=== PATIENT | female | born 1955 | race Caucasian/White ===

== ENCOUNTER 2023-03-28 21:01 | Outpatient (REF) | payer OTHER, SELFPAY ==
[2023-04-01 15:10] LABS: Age Gdln ACOG Testing Note (.); HPV Aptima Negative (Negative); IGP, Aptima HPV, rfx 16/18,45 Note (.)
== END 2023-03-28 21:02 | disposition home or self-care (01) ==
LOC: LAB 21:01
PROVIDERS: PCP Internal Medicine; Visit Provider Obstetrics & Gynecology
DX: Z01.419 Encounter for gynecological examination (general) (routine) without abnormal findings (principal)
CPT/HCPCS: 87624; G0145

== ENCOUNTER 2023-06-22 07:22 | Outpatient (OUT) | payer OTHER, SELFPAY ==
--- OUTSIDE RECORDS SUMMARY | 2023-06-22 07:24 | XMS_ITS | CCD ---
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 Name Role Phone Meli Martin Unavailable SILVESTRE MACHUCA Unavailable Unavailable MELI MARTIN Unavailable Unavailable MELI MARTIN Unavailable Unavailable BALL, KEN Nino Unavailable Unavailable BALL, KEN Nino Unavailable Unavailable BALL, KEN Nino Unavailable Unavailable MIRIAM JARAMILLO Unavailable Unavailable Ken London Unavailable DR KEN LONDON Primary Care Unavailable REQUEST, DR WEST LISTED Attending Unavaila ble REQUEST, DR WEST LISTED Admitting Unavaila ble REQUEST, DR WEST LISTED Consulting Unavaila ble BALL, DR CHRISTIANSEN Primary Care Unavailable BALL, DR CHRISTIANSEN Consulting Unavailable BALL, DR CHRISTIANSEN Attending Unavailable BALL, DR CHRISTIANSEN Admitting Unavailable WEST, DR GOKUL Kemp Consulting Unavailable KARASIK, SIDDHARTHA Attending Unavailable KARASIKSIDDHARTHA Admitting Unavailable KARASIKSIDDHARTHA Consulting Unavailable SURYA, DR CHRISTIANSEN Primary Care Unavailable Indiana Holm Unavailable Meli Martin Unavailable CLAUDIA NARAYANAN Attending Unavailable CLAUDIA NARAYANAN Attending Unavailable KEN LONDON Primary Care Physician Jillian Thapa Unavailable PURNIMA AGUIRRE Attending Unavailable Allergies Allergy Classification Reported Allergen(s) Allergy Type Date of Onset Reaction(s) Facility (1 source) HYDROmorphone Drug Allergy 4 [facility] (1 source) Ketorolac Drug Allergy [facility] (1 source) Levamisole Drug Allergy 3 [facility] (1 source) No Known Medication Allergies; Translations: [No Known Medication Allergies] Propensity to adverse reactions (disorder) [facility] Repository Medications Current Medications Medication Drug Class(es) Dates Sig (Normalized) Sig (Original) ALPRAZolam 0.25 mg oral tablet (12 sources) Benzodiazepine Start: 04-28-2022 take 1 tablet by mouth every eight hours as needed for anxiety ALPRAZolam 0.25 MG 1 tablet Orally every 8 hours, PRN anxiety Apr, Active Start: 11-20-2018 take 1 tablet by socrates th once daily alprazolam 0.25 mg Tab 0.25 mg = 1 tab(s), Oral, Daily Start Date: 11/20/18 Status: Ordered amoxicillin 875 mg oral tablet (5 sources) Penicillin-class Antibacterial Start: 12-02-2022 take 1 tablet by mouth every twelve hours Amoxicillin 875 MG 1 tablet Orally Twice a day for 10 days Nov, Active Amoxicillin Acti ve amoxicillin 875 mg / clavulanate 125 mg oral tablet (11 sources) Penicillin-class Antibacterial Start: 05-31-2022 take 1 tablet by mouth every twelve hours Ascorbic Acid (1 source) Vitamin C Start: 07-13-2019 Vitamin C Daily, Refills(s) 0 Start Date: 07/13/19 Status: Ordered Calcium (9 sources) Phosphate Binder, Calcium Calcium 500 +D Active estradiol 0.1 mg/ml vaginal cream (18 sources) Estrogen Start: 04-21-2022 Estrace 0.1 mg/g Cream See Instructions, 42.5 gm, Refill(s) 3, 1 gram Vaginal 3x/week DISPENSE 3 MONTH SUPPLY, [id number], 152, cm, 08/12/21 10:53:00 EDT, Height/Length Dosing, 59, kg, 08/12/21 10:53:00 EDT, Weight Dosing Start Date: 04/21/22 Status: Ordered Estradiol 10 % a s directed Active Estradiol Acetat e Not-Taking Estradiol Acetat e Active fluconazole 150 mg oral tablet (17 sources) Azole Antifungal Start: 05-31-2022 take 1 tablet by mouth once Fluconazole 150 MG 1 tablet Orally once for 1 days Nov, Active fluticasone propionate 0.05 mg/actuat metered dose nasal spray (11 sources) Corticosteroid Start: 05-31-2022 take 2 spray(s) nasal route once daily hydrocortisone 10 mg/ml / neomycin 3.5 mg/ml / polymyxin b 62176 unt/ml otic suspension (4 sources) Aminoglycoside Antibacterial, Polymyxin-class Antibacterial, Corticosteroid Start: 12-10-2022 Neomycin-Polymyxi n-HC 3.5-79150-1 4 drops into affected ear Otic Three times a day for 7 days Nov, Active Loratadine-D 12HR (4 sources) Loratadine-D 12H R Active [facility]'s [email or web address] Probiotic (1 source) Start: 07-13-2019 [facility]'s Bounty Probiotic Oral, Daily, Refill(s) 0 Start Date: 07/13/19 Status: Ordered One A Day Women 50 Plus - (9 sources) One A Day Women 50 Plus - as directed Orally Active predniSONE 20 mg oral tablet (15 sources) Start: 12-10-2022 take 1 tablet by mouth once daily predniSONE 20 MG 1 tablet Orally Once a day w/ food for 7 days Nov, Active Start: 05-31-2022 take 1 tablet by mouth every t welve hours sertraline 100 mg oral tablet (12 sources) Serotonin Reuptake Inhibitor Start: 11-20-2018 take 1 tablet by mouth once daily sertraline 100 mg Tab 100 mg = 1 tab(s), Oral, Daily Start Date: 11/20/18 Status: Ordered Sertraline HCl 1 00 MG TAKE 1 TABLET DAILY for 90 Active solifenacin succinate 5 mg oral tablet (20 sources) Cholinergic Muscarinic Antagonist Start: 08-12-2021 take 1 tablet by mouth once daily Vesicare 5 mg Tab 5 mg = 1 tab(s), Oral, Daily, # 90 tab(s), Refills(s) 3, Pharmacy: [facility], 152, cm, 08/12/21 10:53:00 EDT, Height/Length Dosing, 59, kg, 08/12/21 10:53:00 EDT, Weight Dosing Start Date: 08/12/21 Status: Ordered Solifenacin Succ inate Not-Taking Solifenacin Succ inate Active sulfamethoxazole 800 mg / trimethoprim 160 mg oral tablet (3 sources) Dihydrofolate Reductase Inhibitor Antibacterial, Sulfonamide Antimicrobial Start: 12-13-2022 take 1 tablet by mouth every twelve hours Sulfamethoxazole-Trimethoprim 800-160 MG 1 tablet Orally Twice a day for 5 days Nov, Active terconazole 4 mg/ml vaginal cream (9 sources) Azole Antifungal Problems Active Problems Problem Classification Problem Date Documented Date Episodic/Chronic Abdominal pain (1 source) Suprapubic pain 10-19-2018 Episodic Anxiety disorders (12 sources) Generalized anxiety disorder; Translations: [Generalized anxiety disorder] Chronic Delirium, dementia, and amnestic and other cognitive disorders (12 sources) Postconcussion syndrome; Translations: [Postconcussional syndrome] Chronic Diabetes mellitus without complication (12 sources) Impaired fasting glycemia; Translations: [Impaired fasting glucose] Episodic Disorders of lipid metabolism (12 sources) Pure hypercholesterolemia; Translations: [Pure hypercholesterolemia, unspecified] Chronic Endometriosis (1 source) Endometriosis (clinical) 11-20-2018 Chronic Genitourinary symptoms and ill-defined conditions (1 source) Female stress incontinence 07-13-2019 Chronic Genitourinary symptoms and ill-defined conditions (15 sources) Dysuria; Translations: [Dysuria] Episodic Headache; including migraine (9 sources) Chronic post-traumatic headache; Translations: [Chronic post-traumatic headache, not intractable] Onset: 11-15-2017 Chronic Inflammatory diseases of female pelvic organs (12 sources) Vaginitis and vulvovaginitis; Translations: [Acute vaginitis] Episodic Intracranial injury (13 sources) Concussion without loss of consciousness, initial encounter; Translations: [Concussion with no loss of consciousness] Onset: 02-02-2017 Episodic Menopausal disorders (12 sources) Atrophy of vagina; 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 Mood disorders (1 source) Depressive disorder 11-20-2018 Chronic Osteoarthritis (4 sources) Localized, primary osteoarthritis of the ankle and/or foot; Translations: [Primary localized osteoarthrosis, lower leg] Onset: 08-28-2013 Chronic Other aftercare (2 sources) History and physical examination, follow-up; Translations: [Encounter for follow-up examination after completed treatment for conditions other than malignant neoplasm] Episodic Other congenital anomalies (2 sources) Congenital spondylolysis of lumbosacral region; Translations: [Congenital spondylolysis, lumbosacral region] Onset: 08-25-2015 Chronic Other connective tissue disease (2 sources) Plantar fascial fibromatosis; Translations: [Plantar fascial fibromatosis] Episodic Other diseases of bladder and urethra (1 source) Detrusor overactivity; Translations: [Overactive bladder] Onset: 08-12-2022 Chronic Other diseases of bladder and urethra (1 source) Overactive bladder 08-12-2021 Chronic Other diseases of bladder and urethra (2 sources) Urethral stricture; Translations: [Urethral stricture, unspecified] Episodic Other ear and sense organ disorders (1 source) Diffuse otitis externa, left ear Episodic Other female genital disorders (10 sources) Pruritus of vagina; Translations: [Other specified noninflammatory disorders of vagina] Episodic Other female genital disorders (2 sources) Polyp of corpus uteri; Translations: [Polyp of corpus uteri] Episodic Other female genital disorders (2 sources) Noninflammatory disorder of the vagina; Translations: [Other specified noninflammatory disorders of vagina] Episodic Other injuries and conditions due to external causes (1 source) Unspecified injury of head, initial encounter; Translations: [Unspecified injury of head, initial encounter] Onset: 02-02-2017 Other nutritional; endocrine; and metabolic disorders (2 sources) Simple obesity ; Translations: [Other obesity due to excess calories] Onset: 05-04-2017 Chronic Other nutritional; endocrine; and metabolic disorders (4 sources) Body mass index 30+ - obesity; Translations: [Body mass index 31.0-31.9, adult] Onset: 05-04-2017 Chronic Other upper respiratory infections (7 sources) Acute sinusitis, unspecified; Translations: [Acute maxillary sinusitis] Onset: 04-04-2014 Episodic Otitis media and related conditions (3 sources) Mastoiditis; Translations: [Unspecified mastoiditis, right ear] Onset: 05-17-2016 Episodic Residual codes; unclassified (1 source) Family history of malignant neoplasm of breast; Translations: [FAMILY HX MALIG NEOPLASM OF BREAST] Onset: 06-25-2022 Episodic Residual codes; unclassified (1 source) Family history of malignant neoplasm of trachea, bronchus and lung; Translations: [FAM HX MALIG NEOPLSM TRACH BRON LNG] Onset: 06-25-2022 Episodic Spondylosis; intervertebral disc disorders; other back problems (16 sources) Lumbar spondylosis; Translations: [Spondylosis without myelopathy or radiculopathy, lumbar region] Onset: 12-19-2012 Chronic Sprains and strains (14 sources) Sprain of left wrist; Translations: [Unspecified sprain of left wrist, initial encounter] Onset: 05-04-2017 Episodic Unclassified (20 sources) Encounter for other screening for malignant neoplasm of breast; Translations: [Encounter for screening mammogram for malignant neoplasm of breast] Onset: 12-21-2016 Episodic Unclassified (1 source) Finding of sensation of bladder 10-19-2018 Unclassified (2 sources) Acute candidiasis of vulva and vagina; Translations: [Acute candidiasis of vulva and vagina] Urinary tract infections (2 sources) Chronic cystitis; Translations: [Other chronic cystitis without hematuria] Onset: 08-12-2022 Chronic Urinary tract infections (12 sources) Acute cystitis; Translations: [Acute cystitis without hematuria] Onset: 09-28-2022 Episodic Past or Other Problems Problem Classification Problem Date Documented Date Episodic/Chronic Bacterial infection; unspecified site (2 sources) Bacterial infectious disease; Translations: [Bacterial infection, unspecified, in conditions classified elsewhere and of unspecified site] Onset: 06-21-2017 Episodic Headache; including migraine (4 sources) Cough headache syndrome; Translations: [Primary cough headache] Onset: 10-28-2015 Episodic Mycoses (2 sources) Candidal vulvovaginitis; Translations: [Candidiasis of vulva and vagina] Onset: 06-21-2017 Episodic Other diseases of bladder and urethra (2 sources) Low compliance bladder; Translations: [Other neuromuscular dysfunction of bladder] Resolved: 08-17-2021 Chronic Other female genital disorders (4 sources) Other specified noninflammatory disorders of vagina; Translations: [OTH SPEC NONINFLAMMATORY D/O VAGINA] Onset: 08-04-2021 Episodic Other non-traumatic joint disorders (2 sources) Pain in right hip joint; Translations: [Pain in right hip] Onset: 01-18-2013 Episodic Other non-traumatic joint disorders (2 sources) Arthralgia of the ankle and/or foot; Translations: [Pain in unspecified ankle and joints of unspecified foot] Onset: 08-28-2013 Episodic Other nutritional; endocrine; and metabolic disorders (2 sources) Body mass index 25-29 - overweight; Translations: [Body mass index 28.0-28.9, adult] Onset: 05-04-2017 Episodic Other nutritional; endocrine; and metabolic disorders (2 sources) Overweight; Translations: [Overweight] Resolved: 08-03-2021 Episodic Other skin disorders (6 sources) Asteatosis cutis; Translations: [Senile hyperkeratosis] Onset: 03-22-2017 Episodic Skin and subcutaneous tissue infections (2 sources) Cellulitis and abscess of trunk; Translations: [Cellulitis and abscess of trunk] Onset: 05-09-2018 Episodic Spondylosis; intervertebral disc disorders; other back problems (2 sources) Backache; Translations: [Dorsalgia, unspecified] Onset: 10-18-2013 Episodic Unclassified (11 sources) Patient encounter status; Translations: [Encounter for health counseling related to travel] Unclassified (10 sources) Monilial vaginitis; Translations: [Monilial vaginitis] Unclassified (1 source) Cough R05.9 Unclassified (1 source) Monilial vaginitis B37.31 Results Test Name Value Interpretation Reference Range Facility Urinalysis - DIPSTICKon 11-24 Appearance (U) cloudy [employer] Other Bilirubin Ql (U) large [employer] Other Color (U) red [facility] Other Glucose Ql (U) Negative [employer] Other Hemoglobin Ql (U) large [employer] Other Ketones Ql (U) trace [employer] Other Leukocyte esterase Test strip Ql (U) moderate [facility] Other Nitrite Ql (U) Positive [employer] Other pH (U) 5.0 [pH] [facility] Other Protein Ql (U) ++ [employer] Other Specific gravity (U) [Rel density] 1.020 [facility] Other Urobilinogen (U) [Mass/Vol] 0.2 mg/dL [facility] Other Urinalysis - DIPSTICK [facility] Other Patient Educationon 09-29-19 Patient Education Obstetrics and Gynecology Overactive Bladder, Adult Overactive bladder is a condition in which a person has a sudden and frequent need to urinate. A person might also leak urine if he or she cannot get to the bathroom fast enough (urinary incontinence). Sometimes, symptoms can interfere with work or social activities. What are the causes? Overactive bladder is associated with poor nerve signals between your bladder and your brain. Your bladder may get the signal to empty before it is full. You may also have very sensitive muscles that make your bladder squeeze too soon. This condition may also be caused by other factors, such as: ? Medical conditions: ? Urinary tract infection. ? Infection of nearby tissues. ? Prostate enlargement. ? Bladder stones, inflammation, or tumors. ? Diabetes. ? Muscle or nerve weakness, especially from these conditions: ? A spinal cord injury. ? Stroke. ? Multiple sclerosis. ? Parkinson's disease. ? Other causes: ? Surgery on the uterus or urethra. ? Drinking too much caffeine or alcohol. ? Certain medicines, especially those that eliminate extra fluid in the body (diuretics). ? Constipation. What increases the risk? You may be at greater risk for overactive bladder if you: ? Are an older adult. ? Smoke. ? Are going through menopause. ? Have prostate problems. ? Have a neurological disease, such as stroke, dementia, Parkinson's disease, or multiple sclerosis (MS). ? Eat or drink alcohol, spicy food, caffeine, and other things that irritate the bladder. ? Are overweight or obese. What are the signs or symptoms? Symptoms of this condition include a sudden, strong urge to urinate. Other symptoms include: ? Leaking urine. ? Urinating 8 or more times a day. ? Waking up to urinate 2 or more times overnight. How is this diagnosed? This condition may be diagnosed based on: ? Your symptoms and medical history. ? A physical exam. ? Blood or urine tests to check for possible causes, such as infection. You may also need to see a health care provider who specializes in urinary tract problems. This is called a urologist. How is this treated? Treatment for overactive bladder depends on the cause of your condition and whether it is mild or severe. Treatment may include: ? Bladder training, such as: ? Learning to control the urge to urinate by following a schedule to urinate at regular intervals. ? Doing Kegel exercises to strengthen the pelvic floor muscles that support your bladder. ? Special devices, such as: ? Biofeedback. This uses sensors to help you become aware of your body's signals. ? Electrical stimulation. This uses electrodes placed inside the body (implanted) or outside the body. These electrodes send gentle pulses of electricity to strengthen the nerves or muscles that control the bladder. ? Women may use a plastic device, called a pessary, that fits into the vagina and supports the bladder. ? Medicines, such as: ? Antibiotics to treat bladder infection. ? Antispasmodics to stop the bladder from releasing urine at the wrong time. ? Tricyclic antidepressants to relax bladder muscles. ? Injections of botulinum toxin type A directly into the bladder tissue to relax bladder muscles. ? Surgery, such as: ? A device may be implanted to help manage the nerve signals that control urination. ? An electrode may be implanted to stimulate electrical signals in the bladder. ? A procedure may be done to change the shape of the bladder. This is done only in very severe cases. Follow these instructions at home: Eating and drinking ? Make diet or lifestyle changes recommended by your health care provider. These may include: ? Drinking fluids throughout the day and not only with meals. ? Cutting down on caffeine or alcohol. ? Eating a healthy and balanced diet to prevent constipation. This may include: ? Choosing foods that are high in fiber, such as beans, whole grains, and fresh fruits and vegetables. ? Limiting foods that are high in fat and processed sugars, such as fried and sweet foods. Lifestyle ? Lose weight if needed. ? Do not use any products that contain nicotine or tobacco. These include cigarettes, chewing tobacco, and vaping devices, such as e-cigarettes. If you need help quitting, ask your health care provider. General instructions ? Take [id number] and prescription medicines only as told by your health care provider. ? If you were prescribed an antibiotic medicine, take it as told by your health care provider. Do not stop taking the antibiotic even if you start to feel better. ? Use any implants or pessary as told by your health care provider. ? If needed, wear pads to absorb urine leakage. ? Keep a log to track how much and when you drink, and when you need to urinate. This will help your health care provider monitor yo (more content not included)... Normal [facility] Urology Office/Clinic Noteon 09-28-2022 Urology Office/Clinic Note Chief Complaint Pt is here for 1 year f/u HPI Staff PRW pt 1yr to chronic cystitis, overactive bladder, urethral stricture and feeling of incomplete bladder emptying. No infections since last visit. *VESIcare 5mg QD therapy and Estrace cream. Dysuria: denies Incomplete bladder emptying: denies Hematuria: denies Frequency: denies Urgency: denies Nocturia: 1x a night Stream: steady stream Leaking: denies Post void dripping: denies Wearing pads/ Depends: denies Urge incontinence: denies Stress incontinence: denies Incontinence without Sensory Awareness: denies Abdominal pain: denies Flank pain: denies Sexual complaints: _ Review of Systems PHQ Score Initial Depression Screen Score: 0 no fever, chills, malaise, myalgia. no rash/lesions. no chest pain, palpitations, or SOB. no abdominal pain, nausea, vomiting. no unilateral calf swelling, redness, pain Physical Exam Vitals & Measurements HR: 70(Peripheral) BP: 125/74 HT: 60 in HT: 152 cm WT: 59 kg WT: 129.8 lb BMI: 25.54 General: nontoxic, NAD Mouth: moist mucosa Lungs: normal respiratory effort Cardio: regular rate, good distal perfusion Abdomen: nondistended, no suprapubic distention or tenderness, no CVA tenderness Neurologic: Grossly normal Skin: No rashes or suspicious lesions Assessment/Plan UA completed in office today shows no microhematuria or signs of infection. 1. Chronic cystitis without hematuria (N30.20: Other chronic cystitis without hematuria) no infections since last visit. very pleased w improvement. continues to use the estrogen cream 3x per week. discussed reducing dose/frequency but pt is still sexually active and says this helps a lot w vaginal dryness/dyspareunia too so we will remain on current dose. Ordered: E&M of Est. Patient Moderate 30-39 Min 73654 Urnls Dip Stick Auto w/o Microscopy POC 85626 2. OAB (overactive bladder) (N32.81: Overactive bladder) doing well on veiscare 5 mg daily for several years. denies intolerable side effects. no worsening freq/urge/incontinen ce since last visit. Ordered: E&M of Est. Patient Moderate 30-39 Min 02713 Urnls Dip Stick Auto w/o Microscopy POC [id number] 3. Postinfective urethral stricture in female (N35.12: Postinfective urethral stricture, not elsewhere classified, female) PVR 0ml at last visit. continues to have good steady stream. Ordered: E&M of Est. Patient Moderate 30-39 Min 49262 discussed f/u PRN and get refills from PCP vs continuing to see our office - pt would prefer to continue care here annually. Follow-up With When Contact Information ORACIO LOTT, KAIT KRUSE Within 1 year Additional Instructions: JB SANTOS, KAIT [facility] [address], [place] [id number]- Additional Instructions: Patient Education Overactive Bladder, Adult Urinary Tract Infection, Adult Problem List/Past Medical History Ongoing Chronic cystitis without hematuria Depression Endometriosis Feeling of incomplete bladder emptying Microscopic hematuria Nocturia OAB (overactive bladder) Postinfective urethral stricture in female ANOOP (stress urinary incontinence, female) Suprapubic pain Urinary urgency Historical No qualifying data Procedure/Surgical History Cystourethroscopy with dilation of urethral stricture (2013), Urodynamics (03/08/2006), Cataract care, Cholecystectomy, Hysterectomy. Medications alprazolam 0.25 mg Tab, 0.25 mg= 1 tab(s), Oral, Daily Estrace 0.1 mg/g Cream, See Instructions, 3 refills [employer] Probiotic, Oral, Daily sertraline 100 mg Tab, 100 mg= 1 tab(s), Oral, Daily Vesicare 5 mg Tab, 5 mg= 1 tab(s), Oral, Daily, 3 refills Vitamin C, Daily Allergies No Known Medication Allergies Social History Alcohol - Denies Alcohol Use, 11/20/2018 Substance Abuse - Denies Substance Abuse, 11/20/2018 Tobacco - Denies Tobacco Use, 11/20/2018 Never (less than 100 in lifetime) Tobacco Use:., 07/14/2020 Never (less than 100 in lifetime) Tobacco Use:., 07/13/2019 Never (less than 100 in lifetime) Tobacco Use:., 11/20/2018 Immunizations Vaccine Date Status influenza virus vaccine, inactivated 02/09/2022 Recorded SARS-CoV-2 (COVID-19) mRNA BNT-162b2 vax 05/11/2021 Recorded influenza virus vaccine, inactivated 02/07/2021 Recorded SARS-CoV-2 (COVID-19) mRNA BNT-162b2 vax 07/29/2020 Recorded SARS-CoV-2 (COVID-19) mRNA BNT-162b2 vax 07/09/2020 Recorded Lab Results Ambulatory Point of Care Results Bilirubin Urine Dipstick: Negative (09/28/22 12:00:00) Blood Urine Dipstick: Negative (09/28/22 12:00:00) Glucose Urine Dipstick: Negative (09/28/22 12:00:00) Ketones Urine Dipstick: Negative (09/28/22 12:00:00) Leukocytes Urine Dipstick: Negative (09/28/22 12:00:00) Nitrite Urine Dipstick: Negative (09/28/22 12:00:00) Protein Urine Dipstick: Negative (09/28/22 12:00:00) Specific [place] Urine Dipstick: 1.010 (09/28/22 12:00:00) Urine Appearance Urine Dipstic (more content not included)... Normal [facility] Comment on above: Result Comment: Elec tronically Signed By: CLAUDIA NARAYANAN PA-C\.br\Date and Time Signed: 09/28/22 17:42 EDT CBC AUTO DIFFon 06-21-2022 BASO # 0.0 103/ul Normal 0.0-0.1 [facility] Comment on above: Performed By: #### D ATCBC #### [facility] [address] [address] [address] Jessica Marie Basophils/100 WBC (Bld) 0.3 % Normal 0.2-2.0 [facility] Comment on above: Performed By: #### D ATCBC #### [facility] [address] [address] [address] Jessica Marie EO # 0.1 103/ul Normal 0.0-0.7 [facility] Comment on above: Performed By: #### D ATCBC #### [facility] [address] [place] [address] Dr. Jessica Marie Eosinophils/100 WBC (Bld) 1.9 % Normal 0.9-7.0 [facility] Comment on above: Performed By: #### D ATCBC ####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 on the cause and severity of your condition. Making lifestyle changes, doing Kegel exercises, keeping a log, and taking medicines can help with this condition. This information is not intended to replace advice given to you by your health care provider. Make sure you discuss any questions you have with your health care provider. Document Revised: 12/29/2020 Document Reviewed: 12/29/2020 [employer] Patient Education 2022 [employer]. 08/12/2022 14:20:46 Urinary Tract Infection, Adult Urinary Tract Infection, Adult A urinary tract infection (UTI) is an infection of any part of the urinary tract. The urinary tractincludes the kidneys, ureters, bladder, and urethra. These organs make, store, and get rid of urinein the body. An upper UTI affects the ureters and kidneys. A lower UTI affects the bladder and urethra. What are the causes? Most urinary tract infections are caused by bacteria in your genital area around your urethra, where urine leaves your body. These bacteria grow and cause inflammation of your urinary tract. What increases the risk? You are more likely to develop this condition if: You have a urinary catheter that stays in place. You are not able to control when you urinate or have a bowel movement (incontinence). You are female and you: ?Use a spermicide or diaphragm for control. ?Have low estrogen levels. ?Are . You have certain genes that increase your risk. You are sexually active. You take antibiotic medicines. You have a condition that causes your flow of urine to slow down, such as: ?An enlarged prostate, if you are male. ?Blockage in your urethra. ?A kidney stone. ?A nerve condition that affects your bladder control (neurogenic bladder). ?Not getting enough to drink, or not urinating often. You have certain medical conditions, such as: ?Diabetes. ?A weak disease-fighting system (immunesystem). ?Sickle cell disease. ?Gout. ?Spinal cord injury. What are the signs or symptoms? Symptoms of this condition include: Needing to urinate right away (urgency). Frequent urination. This may include small amounts of urine each time you urinate. Pain or burning with urination. Blood in the urine. Urine that smells bad or unusual. Trouble urinating. Cloudy urine. Vaginal discharge, if you are female. Pain in the abdomen or the lower back. You may also have: Vomiting or a decreased appetite. Confusion. Irritability or tiredness. A fever or chills. Diarrhea. The first symptom in older adults may be confusion. In some cases, they may not have any symptoms until the infection has worsened. How is this diagnosed? This condition is diagnosed based on your medical history and a physical exam. You may also have other tests, including: Urine tests. Blood tests. Tests for STIs (sexually transmitted infections). If you have had more than one UTI, a cystoscopy or imaging studies may be done to determine the cause of the infections. How is this treated? Treatment for this condition includes: Antibiotic medicine. Xykz-joe-qnyanjq medicines to treat discomfort. Drinking enough water to stay hydrated. If you have frequent infections or have other conditions such as a kidney stone, you may need to see a health care provider who specializes in the urinary tract (urologist). In rare cases, urinary tract infections can cause sepsis. Sepsis is a life- threatening condition that occurs when the body responds to an infection. Sepsis is treated in the hospital with IV antibiotics, fluids, and other medicines. Follow these instructions at home: Medicines Take xnvz-jyk-xkwoqxg and prescription medicines only as told by your health care provider. If you were prescribed an antibiotic medicine, take it as told by your health care provider. Do notstop using the antibiotic even if you start to feel better. General instructions Make sure you: ?Empty your bladder often and completely. Do not hold urine for long periods of time. ?Empty your bladder after sex. ?Wipe from front to back after urinating or having a bowel movement if you are female. Use each tissue only one time when you wipe. Drink enough fluid to keep your urine pale yellow. Keep all follow-up visits. This is important. Contact a health care provider if: Your symptoms do not get better after 1 2 days. Your symptoms go away and then return. Get help right away if: You have severe pain in your back or your lower abdomen. You have a fever or chills. You have nausea or vomiting. Summary A urinary tract infection (UTI) is an infection of any part of the urinary tract, which includes the kidneys, ureters, bladder, and urethra. Most urinary tract infections are caused by bacteria in your genital area. Treatment for this condition often includes antibiotic medicines. If you were prescribed an antibiotic medicine, take it as told by your health care provider. Do notstop using the antibiotic even if you start to feel better. Keep all follow-up visits. This is important. This information is not intended to replace advice given to you by your health care provider. Make sure you discuss any questions you have with your health care provider. Document Revised: 11/21/2020 Document Reviewed: 11/21/2020 [employer] Patient Education 2022 [employer]. Follow Up Care 08/12/2021 11:15:37 With:CLAUDIA NARAYANAN PA-C, URL Address: When:1 year With:JB SANTOS, Jean Jo, URL Address: [facility] [address], [place] [address]- When: Unknown [facility] 02-24-2023 Evaluation note* Encounter Date Diagnosis Assessment Notes Treatment Notes Treatment Clinical Notes May, IFG (impaired fasting glucose) (ICD-10 - R73.01) Healthy diet, exercise and check FBS May, Medicare annual wellness visit, initial (ICD-10 - Z00.00) Personalized health advice was given to the beneficiary including a written plan for screenings discussed and provided. Advanced care planning reviewed and/or information given as requested. Additional counseling was provided here today in regards to, ( ). The above visit was performed by ( ), under direct supervision of ( ). Document reviewed and amended by provider signed below. May, ASHLEY (generalized anxiety disorder) (ICD-10 - F41.1) Healthy diet and exercise, keep active May, Colon cancer screening (ICD-10 - Z12.11) May, Screening mammogram for breast cancer (ICD-10 - Z12.31) [facility] Other 02-16-2023 Evaluation note* Encounter Date Diagnosis Assessment Notes Treatment Notes Treatment Clinical Notes May, Dysuria (ICD-10 - R30.0) [facility] Other 02-06-2023 Evaluation note* Encounter Date Diagnosis Assessment Notes Treatment Notes Treatment Clinical Notes May, Cough (ICD-10 - R05.9) May, Acute sinusitis, recurrence not specified, unspecified location (ICD-10 - J01.90) Sinusitis home care material was printed Drink plenty fluids, get plenty of rest. Take the amoxicillin with clavulanate and prednisone as prescribed until gone. Use the Flonase inhaler as prescribed and her symptoms improved. Take the Diflucan as prescribed. Follow-up with your family physician if no improvement in 2 to 3 days [facility] Other Evaluation + Plan note Future Appointments Appointment Date:10/04/2023 09:00:00 AM Scheduled Provider:CLAUDIA NARAYANAN PA-C Location:[facility] Appointment Type:URO Office Visit [facility] evaluation noteNo InformationNort InfoBasis Other [facility] general Narrative - Reported* Type Description Date Medical History anxiety Medical History Bladder Spasms [facility] Other [facility] general Narrative - Reported* Type Description Date Medical History anxiety Medical History Bladder Spasms Surgical History cholecystectomy 1999 Surgical History cataract bilateral 2005 Surgical History ORIF right tib/fib Surgical History cysto with urethral dilation 12 10 Surgical History D&C Surgical History VICTOR MANUEL [facility] Other Hisyzhj general Narrative - Reported* Type Description Date Medical History anxiety Medical History Bladder Spasms Medical History Sprain of left wrist, initial en counter Medical History Pure hypercholesterolemia Medical History Acute cystitis without hematuria Medical History Lumbar spondylosis Medical History Vaginal itching Medical History Vaginal atrophy Medical History Concussion, without LOC, initial encounter Medical History Post concussion syndrome Medical History Vaginosis Medical History Monilial vaginitis Medical History Dysuria Surgical History cholecystectomy 2000 Surgical History cataract bilateral 2006 Surgical History ORIF right tib/fib Surgical History cysto with urethral dilation 20 06 Surgical History D&C Surgical History VICTOR MANUEL Hospitalization History see surgical history [facility] Other Hospital course Narrative No data available for this section [facility] progress note No data available for this section [facility] Assessments Diagnosis Xerosis cutis - Primary Other specified disease of sebaceous glands SK (seborrheic keratosis) Other seborrheic keratosis Summary Purpose Family History No Family History Records FoundNo Family History Records FoundNo Family History Records FoundNo Family History Records FoundNo Family History Records FoundNo Family History Records Found Advance Directives No Advanced Directives Records FoundNo Advanced Directives Records FoundNo Advanced Directives Records FoundNo Advanced Directives Records FoundNo Advanced Directives Records FoundNo Advanced Directives Records Found Additional Source Comments INFORMATION SOURCE (unrecogn ized section and content) DATE CREATED AUTHOR 10/18/2017 [facility] DATE CREATED AUTHOR AUTHOR'S ORGANIZ ATION 10/18/2017 [facility] DATE CREATED AUTHOR AUTHOR'S ORGANIZ ATION 01/29/2019 [facility] DATE CREATED AUTHOR AUTHOR'S ORGANIZ ATION 06/26/2022 [facility] DATE CREATED AUTHOR AUTHOR'S ORGANIZ ATION 10/03/2022 [facility] DATE CREATED AUTHOR AUTHOR'S ORGANIZ ATION 03/29/2023 [facility] EPIC REASON FOR VISIT (unrecogniz ed section and content) ClinicalRefillCONGESTION H/A COUGHuaWellnessSINUS INFECTION?SINUS INFECTION?EarUAATBYeast Infection Patient Care team informatio n (unrecognized section and content) Personnel Name: KEN LONDON DO Address: Address: [address] [place], [place] [id number] FOR RECORDS PERTAINING TO PATIENTS WHO ARE OR HAVE BEEN ENROLLED IN A CHEMICAL DEPENDENCY/SUBSTANCEABUSE PROGRAM, SOME INFORMATION MAY BE OMITTED. This clinical summary was aggregated from multiple sources. Caution should be exercised in using it in the provision of clinical care. This summary normalizes information from multiple sources, and as a consequence, information in this document may materially change the coding, format and clinical context of patient data. In addition, data may be omitted in some cases. CLINICAL DECISIONS SHOULD BE BASED ON THE PRIMARY CLINICAL RECORDS. [email or web address]. provides no warranty or guarantee of the accuracy or completeness of information in this document.
--- NOTE | 2023-06-22 07:26 | MM_ITS ---
Patient Name: PORSCHE MILLS MR#: [id number] : 1955 Exam Date: 06/22/2023 Ordering Doctor: DR Mic Aleman . RADIOLOGY REPORT PROCEDURE: MM TOMOSYNTHESIS SCREENING BI COMPARISON: MG MAMM SCREEN 3D PRASHANTH CAD, 06/17/2021. MG MAMM SCREEN 3D PRASHANTH CAD, 06/21/2022. INDICATIONS: Screening Calculator Name NCI Breast Cancer Risk Assessment Tool 5 Year Breast Cancer Risk 3.50% Lifetime Breast Cancer Risk 12.70% Personal Breast Cancer No Personal Ovarian Cancer No Treatments None Family Cancers Sister with breast cancer at age 60; Brother with lung cancer at age 64. LOCATION: [facility] BREAST COMPOSITION: Scattered areas fibroglandular density. FINDINGS: DIAGNOSTIC CATEGORY 1--NEGATIVE. NO CHANGE FROM COMPARISON ASSESSMENT. Scattered benign-appearing calcifications are present. RIGHT BREAST: No significant suspicious finding. LEFT BREAST: No significant suspicious finding. RECOMMENDATIONS: ROUTINE MAMMOGRAM AND CLINICAL EVALUATION IN 12 MONTHS. PLEASE NOTE: A NORMAL MAMMOGRAM DOES NOT EXCLUDE THE POSSIBILITY OF BREAST CANCER. A CLINICALLY SUSPICIOUS PALPABLE LUMP SHOULD BE BIOPSIED. Dictated by: Duy Marshall MD on 06/22/2023 at 08:57 Approved by: Duy Marshall MD on 06/22/2023 at 08:58
--- NOTE | 2023-06-22 07:26 | XR_ITS ---
[address] [address] Patient Name: PORSCHE MILLS MRN: [id number] date: 1955 Sex: F Assigned Patient Location: [facility] Current Patient Location: [facility] Accession/Order Number: [id number] Exam Date: 06/22/2023 07:40 Report Date: 06/22/2023 07:58 At the request of: PURNIMA AGUIRRE Procedure: XR DEXA axial skeleton EXAMINATION: XR DEXA axial skeleton, 06/22/2023 7:40 AM EST HISTORY: Post Menopausal State Z78.0 COMPARISON: 2014 TECHNIQUE: Dual-energy X-ray absorptiometry (DEXA) bone density study performed for the axial skeleton. HISTORY: Post Menopausal State Z78.0 FINDINGS: Bone mineral density AP spine L1-L4 measures 1.021 g/sq cm. T score -1.3. WHO classification: Osteopenia. Lowest bone mineral density right femoral trochanter measures 0.630 g/sq cm. T score -1.9. WHO classification: Osteopenia XR/XR DEXA axial skeleton IMPRESSION: Osteopenia. Moderate fracture risk Electronically authenticated by: GOKUL BARROW Date: 06/22/2023 07:58
== END 2023-06-22 07:23 | disposition home or self-care (01) ==
LOC: MAMMO 07:22
PROVIDERS: PCP Internal Medicine; Visit Provider Obstetrics & Gynecology
DX: Z12.31 Encounter for screening mammogram for malignant neoplasm of breast (principal); Z78.0 Asymptomatic menopausal state; Z80.3 Family history of malignant neoplasm of breast; Z80.1 Family history of malignant neoplasm of trachea, bronchus and lung; M85.80 Other specified disorders of bone density and structure, unspecified site
CPT/HCPCS: 77063; 77067; 77080

== ENCOUNTER 2024-01-19 14:10 | Outpatient (OUT) | payer OTHER, SELFPAY ==
--- NOTE | 2024-01-19 | XR_ITS ---
The [address] [address] Patient Name: PORSCHE MILLS MRN: [id number] date: 1955 Sex: F Assigned Patient Location: Current Patient Location: Accession/Order Number: [id number] Exam Date: 01/19/2024 14:27 Report Date: 01/21/2024 04:31 At the request of: JODIE RODRIGUEZ Procedure: XR foot LT min 3V PROCEDURE: XR foot LT min 3V HISTORY: LEFT FOOT PAIN ; medial heel pain; no known injury COMPARISON: None. FINDINGS: BONES:Calcaneal plantar spur with a component projecting caudad toward the plantar surface. Small Achilles tendon degenerative osteophyte. Moderate degenerative changes of the first metatarsophalangeal joint and suspected prior bunionectomy. SOFT TISSUES:No visible soft tissue swelling. EFFUSION:None visible. OTHER: Negative. XR/XR foot LT min 3V IMPRESSION: 1. Complex appearing calcaneal plantar spur which may contribute patient's symptoms. 2. Moderate degenerative changes of the first metatarsophalangeal joint. Electronically authenticated by: LEEANNE WILCOX Date: 01/21/2024 04:31
--- OUTSIDE RECORDS SUMMARY | 2024-01-19 14:20 | XMS_ITS | CCD ---
Author Organization [facility] Care Team Providers Care Driller Portable Name Role Phone Meli Martin Unavailable SILVESTRE MACHUCA Unavailable Unavailable MELI MARTIN Unavailable Unavailable MARIO, MEIL Nino Unavailable Unavailable BALL, KEN Nino Unavailable Unavailable SHRUTHI, KEN Nino Unavailable Unavailable SHRUTHI, KEN Nino Unavailable Unavailable MIRIAM JARAMILLO Unavailable Unavailable Ken London Unavailable SHRUTHI, DR CHRISTIANSEN Primary Care Unavailable REQUEST, DR WEST LISTED Attending Unavaila ble REQUEST, DR WEST LISTED Admitting Unavaila ble REQUEST, DR WEST LISTED Consulting Unavaila ble BALL, DR CHRISTIANSEN Primary Care Unavailable BALL, DR CHRISTIANSEN Consulting Unavailable BALL, DR CHRISTIANSEN Attending Unavailable BALL, DR CHRISTIANSEN Admitting Unavailable WEST, DR GOKUL Kemp Consulting Unavailable KARASIK, SIDDHARTHA Attending Unavailable KARASIK, SIDDHARTHA Admitting Unavailable KARASIK, SIDDHARTHA Consulting Unavailable BALL, DR CHRISTIANSEN Primary Care Unavailable Indiana Holm Unavailable Meli Martin Unavailable KEN LONDON Primary Care Physician [phone] Jillian Thapa Unavailable PURNIMA AGUIRRE Attending Unavailable Jean MUHAMMAD Attending Unavailable OREN NARAYANAN Attending Unavailab le Allergies Allergy Classification Reported Allergen(s) Allergy Type Date of Onset Reaction(s) Facility Unclassified (1 source) No Known Medication Allergies; Translations: [No Known Medication Allergies] Propensity to adverse reactions (disorder) [facility] Repository (1 source) HYDROmorphone Drug Allergy 4 [facility] Repository (1 source) Ketorolac Drug Allergy [facility] Repository (1 source) Levamisole Drug Allergy 3 [facility] Medications Current Medications Medication Drug Class(es) Dates Sig (Normalized) Sig (Original) amoxicillin 875 mg oral tablet (5 sources) Penicillin-class Antibacterial Start: 12-02-2022 take 1 tablet by mouth every twelve hours Amoxicillin 875 MG 1 tablet Orally Twice a day for 10 days Nov, Active Amoxicillin Acti ve amoxicillin 875 mg / clavulanate 125 mg oral tablet (11 sources) Penicillin-class Antibacterial Start: 05-31-2022 take 1 tablet by mouth every twelve hours Ascorbic Acid (2 sources) Vitamin C Start: 07-13-2019 Vitamin C Daily, Refills(s) 0 Start Date: 07/13/19 Status: Ordered Calcium (9 sources) Phosphate Binder, Calcium Calcium 500 +D Active calcium carbonate 1250 mg chewable tablet (5 sources) Start: 08-09-2023 take 1 tablet by mouth once daily Calcium Carbonate (Calcium 500) 500 mg calcium (1,250 mg) tablet,chewable Active 500 MG PO Daily August 09, 2023 12:00am cefuroxime 500 mg oral tablet (3 sources) Cephalosporin Antibacterial Start: 09-21-2023 take 500 mg by mouth twice daily Cefuroxime Axetil Active 500 MG PO Twice daily 10 September 21, 2023 12:00am estradiol 0.1 mg/ml vaginal cream (20 sources) Estrogen Start: 08-09-2023 Estradiol Active 1 APPLICATOR VAGINAL Daily August 09, 2023 12:00am for 14 days Start: 04-21-2022 Estrace 0.1 mg /g Cream See Instructions, 42.5 gm, Refill(s) 3, 1 gram Vaginal 3x/week DISPENSE 3 MONTH SUPPLY, [id number], 152, cm, 08/12/21 10:53:00 EDT, Height/Length Dosing, 59, kg, 08/12/21 10:53:00 EDT, Weight Dosing Start Date: 04/21/22 Status: Ordered Estradiol 10 % a s directed Active Estradiol Acetat e Not-Taking Estradiol Acetat e Active fluconazole 150 mg oral tablet (20 sources) Azole Antifungal Start: 09-21-2023 take 150 mg by mouth every week Fluconazole Active 150 MG PO every week 2 November 14, 2023 12:00am Start: 08-09-2023 End: 08-09-2023 take 150 mg by mouth every week Fluconazole Discontinu ed 150 MG PO every week August 09, 2023 12:00am August 09, 2023 10:02am Start: 05-31-2022 take 1 tablet by mouth once Fl uconazole 150 MG 1 tablet Orally once for 1 days Nov, Active fluticasone propionate 0.05 mg/actuat metered dose nasal spray (11 sources) Corticosteroid Start: 05-31-2022 take 2 spray(s) nasal route once daily hydrocortisone 10 mg/ml / neomycin 3.5 mg/ml / polymyxin b [id number] unt/ml otic suspension (4 sources) Aminoglycoside Antibacterial, Polymyxin-class Antibacterial, Corticosteroid Start: 12-10-2022 Neomycin-Polymyxi n-HC [id number] 4 drops into affected ear Otic Three times a day for 7 days Nov, Active Loratadine (Allergy Relief (Loratadine)) 10 mg tablet,disintegratin g (5 sources) Start: 08-09-2023 take 1 tablet by mouth once daily Loratadine (Allergy Relief (Loratadine)) 10 mg tablet,disintegra ting Active 10 MG PO Daily August 09, 2023 12:00am Loratadine-D 12HR (4 sources) Loratadine-D 12H R Active Multivitamin (One Daily Multivitamin) tablet (5 sources) Start: 08-09-2023 take 1 tablet by mouth once daily Multivitamin (One Daily Multivitamin) tablet Active 1 TAB PO Daily August 09, 2023 12:00am Unatas [facility] Probiotic (2 sources) Start: 07-13-2019 [employer] Bounty Probiotic Oral, Daily, Refill(s) 0 Start Date: 07/13/19 Status: Ordered One A Day Women 50 Plus - (9 sources) One A Day Women 50 Plus - as directed Orally Active predniSONE 20 mg oral tablet (16 sources) Start: 01-06-2024 take 2 tablets by mouth once daily, then take 1 tablet by mouth once daily Prednisone Active 0 PO .COMPLEX 12 January 06, 2024 12:00am Take 2 tabs p.o. daily x 4 days, then take 1 tab p.o. daily x 4 days. Start: 12-10-2022 take 1 tablet by socrates once daily predniSONE 20 MG 1 tablet Orally Once a day w/ food for 7 days Nov, Active Start: 05-31-2022 take 1 tablet by socrates th every twelve hours sertraline 100 mg oral tablet (20 sources) Serotonin Reuptake Inhibitor Start: 07-15-2023 Sertraline Active 0 .ROUTE .COMPLEX 90 July 15, 2023 4:51pm TAKE 1 TABLET DAILY Start: 11-20-2018 End: 07-15-2023 take 100 mg by mouth once daily Sertraline Discontinued 100 MG PO Daily July 15, 2023 12:00am July 15, 2023 4:51pm Sertraline HCl 1 00 MG TAKE 1 TABLET DAILY for 90 Active solifenacin succinate 5 mg oral tablet (20 sources) Cholinergic Muscarinic Antagonist Start: 06-14-2023 take 1 tablet by mouth once daily Solifenacin (Vesicare) 5 mg tablet Active 5 MG PO Daily August 09, 2023 12:00am Start: 08-12-2021 take 1 tablet by socrates th once daily Vesicare 5 mg Tab 5 mg = 1 tab(s), Oral, Daily, # 90 tab(s), Refills(s) 3, Pharmacy: [facility], 152, cm, 08/12/21 10:53:00 EDT, Height/Length Dosing, 59, kg, 08/12/21 10:53:00 EDT, Weight Dosing Start Date: 08/12/21 Status: Ordered Solifenacin Succ inate Not-Taking Solifenacin Succ inate Active sulfamethoxazole 800 mg / trimethoprim 160 mg oral tablet (5 sources) Dihydrofolate Reductase Inhibitor Antibacterial, Sulfonamide Antimicrobial Start: 11-14-2023 take 1 tablet by mouth twice daily Sulfamethoxazole-Trimethoprim Active 1 TAB PO Twice daily 10 November 14, 2023 12:00am Start: 12-13-2022 take 1 tablet by socrates th every twelve hours Sulfamethoxazole-Trimethoprim 800-160 MG 1 tablet Orally Twice a day for 5 days Nov, Active terconazole 4 mg/ml vaginal cream (9 sources) Azole Antifungal Completed/Discontinued Medications Medication Drug Class(es) Dates Sig (Normalized) Sig (Original) ALPRAZolam 0.25 mg oral tablet (20 sources) Benzodiazepine Start: 07-29-2023 End: 08-09-2023 take 0.25 mg by mouth every eight hours Alprazolam Discontinued 0.25 MG PO Every 8 hours 30 30 July 284 4:32pm August 09, 2023 9:58am Start: 04-28-2022 take 1 tablet by socrates th every eight hours as needed for anxiety ALPRAZolam 0.25 MG 1 tablet Orally every 8 hours, PRN anxiety Apr, Active Start: 11-20-2018 take 1 tablet by socrates th once daily alprazolam 0.25 mg Tab 0.25 mg = 1 tab(s), Oral, Daily Start Date: 11/20/18 Status: Ordered azithromycin 250 mg oral tablet (3 sources) Macrolide Antimicrobial Start: 09-21-2023 End: 09-21-2023 Azithromycin Discontinued 250 MG PO As Directed 09 27September 21, 2023 12:00am September 21, 2023 9:56am Problems Active Problems Problem Classification Problem Date Documented Date Episodic/Chronic Abdominal pain (2 sources) Suprapubic pain 10-19-2018 Episodic Anxiety disorders (19 sources) Generalized anxiety disorder; Translations: [Generalized anxiety disorder] Chronic Delirium, dementia, and amnestic and other cognitive disorders (12 sources) Postconcussion syndrome; Translations: [Postconcussional syndrome] Chronic Diabetes mellitus without complication (20 sources) Impaired fasting glycemia; Translations: [Impaired fasting glucose] Episodic Disorders of lipid metabolism (12 sources) Pure hypercholesterolemia; Translations: [Pure hypercholesterolemia, unspecified] Chronic Endometriosis (2 sources) Endometriosis (clinical) 11-20-2018 Chronic Genitourinary symptoms and ill-defined conditions (4 sources) Female stress incontinence; Translations: [Stress incontinence (female) (male)] Onset: 10-04-2023 07-13-2019 Chronic Genitourinary symptoms and ill-defined conditions (20 sources) Dysuria; Translations: [Dysuria] Episodic Headache; including [...] 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 Mood disorders (2 sources) Depressive disorder 11-20-2018 Chronic Mycoses (7 sources) Candidal vulvovaginitis; Translations: [Candidiasis of vulva and vagina] Onset: 06-21-2017 09-21-2023 Episodic Osteoarthritis (4 sources) Localized, primary osteoarthritis of the ankle and/or foot; Translations: [Primary localized osteoarthrosis, lower leg] Onset: 08-28-2013 Chronic Other aftercare (2 sources) History and physical examination, follow-up; Translations: [Encounter for follow-up examination after completed treatment for conditions other than malignant neoplasm] Episodic Other bone disease and musculoskeletal deformities (5 sources) Osteopenia; Translations: [Other specified disorders of bone density and structure, unspecified site] 08-07-2023 Episodic Other bone disease and musculoskeletal deformities (2 sources) Other specified disorders of bone density and structure, unspecified site; Translations: [Disorder of bone and cartilage, unspecified] 08-09-2023 Episodic Other congenital anomalies (2 sources) Congenital spondylolysis of lumbosacral region; Translations: [Congenital spondylolysis, lumbosacral region] Onset: 08-25-2015 Chronic Other connective tissue disease (2 sources) Plantar fascial fibromatosis; Translations: [Plantar fascial fibromatosis] Episodic Other connective tissue disease (1 source) Plantar fasciitis of left foot; Translations: [Plantar fascial fibromatosis] 01-06-2024 Episodic Other connective tissue disease (1 source) Plantar fascial fibromatosis; Translations: [Plantar fascial fibromatosis] 01-06-2024 Episodic Other diseases of bladder and urethra (2 sources) Detrusor overactivity; Translations: [Overactive bladder] Onset: 08-12-2022 Chronic Other diseases of bladder and urethra (2 sources) Overactive bladder 08-12-2021 Chronic Other diseases of [...] Onset: 05-04-2017 Chronic Other upper respiratory infections (13 sources) Acute sinusitis, unspecified; Translations: [Acute maxillary [...] neoplasm of breast] Onset: 12-21-2016 Episodic Unclassified (2 sources) Finding of sensation of bladder 10-19-2018 Unclassified (2 sources) Acute candidiasis of vulva and vagina; Translations: [Acute candidiasis of vulva and vagina] Urinary tract infections (4 sources) Chronic cystitis; Translations: [Other chronic cystitis without hematuria] Onset: 08-12-2022 Chronic Urinary tract infections (14 sources) Acute cystitis; Translations: [Acute cystitis without hematuria] Onset: 09-28-2022 Episodic Past or Other Problems Problem Classification Problem Date Documented Date Episodic/Chronic Bacterial infection; unspecified site (2 sources) Bacterial infectious disease; Translations: [Bacterial infection, unspecified, in conditions classified elsewhere and of unspecified site] Onset: 06-21-2017 Episodic Headache; including migraine (4 sources) Cough headache syndrome; Translations: [Primary cough headache] Onset: 10-28-2015 Episodic Other diseases of bladder and urethra [...] Test Name Value Interpretation Reference Range Facility Laboratory - Chemistry and C hemistry - challengeon 11-23-2023 Bilirubin Ql (U) Negative [facility] Glucose (U) [Mass/Vol] Negative [facility] Ketones Ql (U) Negative [facility] pH (U) 5.0 [pH] [facility] Specific gravity (U) [Rel density] 1.000 [facility] Urobilinogen (U) [Mass/Vol] 0.2 mg/dL [facility] Laboratory - Specimen inform ationon 11-23-2023 Appearance (U) clear [facility] Color (U) lightyellow [facility] Laboratory - Urinalysison Leukocyte esterase Test strip Ql (U) Negative [facility] Nitrite Ql (U) Negative [facility] Protein Ql (U) Negative [facility] No Panel Informationon 11-22 Urine Occult Blood Negative [facility] Laboratory - Chemistry and C hemistry - challengeon 11-14-2023 Bilirubin Ql (U) Negative [facility] Glucose (U) [Mass/Vol] Negative [facility] Ketones Ql (U) Negative [facility] pH (U) 5.0 [pH] [facility] Specific gravity (U) [Rel density] 1.005 [facility] Urobilinogen (U) [Mass/Vol] Negative [facility] Laboratory - Specimen inform ationon 11-14-2023 Appearance (U) cloudy [facility] Color (U) yellow [facility] Laboratory - Urinalysison Leukocyte esterase Test strip Ql (U) +++ [facility] Nitrite Ql (U) Negative [facility] Protein Ql (U) ++ [facility] No Panel Informationon 11-13 Urine Occult Blood +++ [facility] Screenson 10-05-2023 Screens [id number] Normal [facility] Ambulatory Visit Summaryon 0 10-04-2023 Ambulatory Visit Summary SHOCKDONNA :1955 Visit Date:10/04/2023 Ambulatory Visit Instructions Your Diagnosis Chronic cystitis without hematuria OAB (overactive bladder) Postinfective urethral stricture in female Stress incontinence Your Care Team Attending Physician - ORACIO LOTT, ANJELICA Nino Primary Care Physician - KEN LONDON DO This Is Your Medications List solifenacin (Vesicare 5 mg Tab) Contact prescribing physician if questions or concerns alprazolam (alprazolam 0.25 mg Tab) ascorbic acid (Vitamin C) bifidobacterium-lact obacillus ([employer] Bounty Probiotic) sertraline (sertraline 100 mg Tab) [Image Removed: STOP]Stop taking these medications estradiol topical (Estrace 0.1 mg/g Cream) Procedures Performed Cystourethroscopy with dilation of urethral stricture (2013), Urodynamics (03/08/2006), Cataract care, Cholecystectomy, Hysterectomy. Discharge Vitals Temperature (Temporal Artery) 37 ?C Heart Rate (Peripheral) 68 Respiratory Rate 16 Blood Pressure 124/77 Height 152 cm Height 60 in Weight 57.4 kg Weight 126.28 lb BMI 24.84 What to do next Scheduled Follow-Up Appointments Tuesday 8:15 AM EDT With: JB SANTOS, Jean Jo Where: [facility] Patient Educationon 10-04-19 Patient Education Obstetrics and Gynecology Overactive Bladder, [...] health care provider. General instructions ? Take [id number] and prescription medicines only as told by [...] monitor yo (more content not included)... Normal [facility] Urology Office/Clinic Noteon 10-04-2023 Urology Office/Clinic Note Chief Complaint OAB HPI Staff Pt is here for a 1 year F/U Previous DX; Chronic cystitis, OAB, urethral stricture, PVR (0) at last OV Pt is on Estrogen cream 3x wkly Vesicare 5 mg qd for several years now. Pt states that she gets infections from the Estradiol and does not want to use it again. She states that the script for Vesicare is for qd but she has only been taking it every other day. Dysuria: no Incomplete bladder emptying: no Hematuria: no Frequency: pt states she is doing well now Urgency: no Nocturia: 1x Stream: good steady no straining Leaking: yes with stress Post void dripping: no Wearing pads/ Depends: light pads changes every time she voids Urge incontinence: no Stress incontinence: yes with lifting and bending Incontinence without Sensory Awareness: no Abdominal pain: no Flank pain: no Sexual complaints: no History of Present Illness staff HPI reviewed and agree. Review of Systems PHQ Score Initial Depression Screen Score: 0 SCORE no fever, chills, malaise, myalgia. no rash/lesions. no chest pain, palpitations, or SOB. no abdominal pain, nausea, vomiting. no unilateral calf swelling, redness, pain Physical Exam Vitals & Measurements T: 37 ?C(Temporal Artery) HR: 68(Peripheral) RR: 16 BP: 124/77 HT: 60 in HT: 152 cm WT: 57.4 kg WT: 126.28 lb BMI: 24.84 General: nontoxic, NAD Mouth: moist mucosa Lungs: normal respiratory effort Cardio: regular rate, good distal perfusion Abdomen: nondistended, no suprapubic distention or tenderness, no CVA tenderness Neurologic: Grossly normal Skin: No rashes or suspicious lesions Assessment/Plan 1. Chronic cystitis without hematuria (N30.20: Other chronic cystitis without hematuria) No longer using Estrogen cream 3x/wk. States she had an infection, stopped cream and then started using it again, and had another infection. Pt then tried to apply cream only to the external labia and had another infection. Threw away tube and tried new tube, still got another infection. Reports fire prevention chief treated all infections. Not interested in starting this again. I agree w remaining off this medication at this time. UA today neg. Asx currently. Discussed OTC UTI prevention including cranberry pills, D-Mannose, and probiotics. Pt can take one supplement that includes all three. She will start this. -Pt to call the office if she has >1 infection prior to next appt. next steps could be methenamine vs suppressive abx vs cysto/UD -UTI prevention literature provided Follow up in 1 year or sooner if issues arise. 2. OAB (overactive bladder) (N32.81: Overactive bladder) Taking VESIcare 5mg, script is written for qd, but pt has been taking qod. Has been taking for several years. No current issues. Discussed increasing dose to daily vs dc'ing med completely. Pt does not wish to make any changes at this time. -Call when needs refills 3. Postinfective urethral stricture in female (N35.12: Postinfective urethral stricture, not elsewhere classified, female) Prior PVR 0 cc. No issues with emptying. Strong, steady stream. Denies straining with urination. 4. Stress incontinence (N39.3: Stress incontinence (female) (male)) BBSQ 9. Leaks with lifting and bending. Wearing light pads. Not bothersome enough to warrant tx per pt. Follow-up With When Contact Information ORACIO LOTT, ANJELICA Nino, URL [address] [place] [address] Additional Instructions: 1 year Patient Education Overactive Bladder, Adult Documentation recorded by the yenny Talamantes accurately reflects the services(s) I performed and decisions made by me. Authenticated by Anjelica Narayanan PA-C on 10/04/2023 10:03:56. IAmaris, personally scribed for Silvia Narayanan PA-C on 10/04/2023 09:26:40. . Problem List/Past Medical History Ongoing Chronic cystitis without hematuria Depression Endometriosis Feeling of incomplete bladder emptying Microscopic hematuria Nocturia OAB (overactive bladder) Postinfective urethral stricture in female Stress incontinence ANOOP (stress urinary incontinence, female) Suprapubic pain Urinary urgency Historical No qualifying data Procedure/Surgical History Cystourethroscopy with dilation of urethral stricture (2013), Urodynamics (03/08/2006), Cataract care, Cholecystectomy, Hysterectomy. Medications alprazolam 0.25 mg Tab, 0.25 mg= 1 tab(s), Oral, Daily Estrace 0.1 mg/g Cream, See Instructions, 3 refills, Not taking: Pt states that she gets infections from thie and does not want to use it [employer] Bounty Probiotic, Oral, Daily sertraline 100 mg Tab, 100 mg= 1 tab(s), Oral, Daily Vesicare 5 mg Tab, 5 mg= 1 tab(s), Oral, Daily, 3 refills Vitamin C, Daily Allergies No Known Medication Allergies Social History Alcohol - Denies Alcohol Use, 11/20/2018 Substance Abuse - Denies Substance Abuse, 11/20/2018 Tobacco - Denies Tobacco U (more content not included)... Normal [facility] Comment on above: Result Comment: Elec tronically Signed By: ANJELICA NARAYANAN PA-C\.br\Date and Time Signed: 10/04/23 10:04 EDT\.br\Electronically Co-Signed By: Amaris Talamantes\.br\Date and Time Co-Signed: 10/04/23 09:26 EDT Urinalysis - DIPSTICKon 11-24 Appearance (U) cloudy [employer] Other Bilirubin Ql (U) large [employer] Other Color (U) red [employer] Other Glucose Ql (U) Negative [employer] Other Hemoglobin Ql (U) [employer] Other Ketones Ql (U) trace [employer] Other Leukocyte esterase Test strip Ql (U) moderate [employer] Other Nitrite Ql (U) Positive [employer] Other pH (U) 5.0 [pH] [employer] Other Protein Ql (U) ++ [employer] Other Specific gravity (U) [Rel density] 1.020 [employer] Other Urobilinogen (U) [Mass/Vol] 0.2 mg/dL [employer] Other Urinalysis - DIPSTICK [employer] Other CBC AUTO DIFFon 06-21-2022 BASO # 0.0 103/ul Normal 0.0-0.1 [facility] Comment on above: Performed By: #### D ATCBC #### [facility] [address] [place] [address] Dr. Jessica Marie Basophils/100 WBC (Bld) 0.3 % Normal 0.2-2.0 [facility] Comment on above: Performed By: #### D ATCBC #### [facility] [address] [place] [address] Dr. Jessica Marie EO # 0.1 103/ul Normal 0.0-0.7 [facility] Comment on above: Performed By: #### D ATCBC #### [facility] [address] [place] [address] Dr. Jessica Marie Eosinophils/100 WBC (Bld) 1.9 % Normal 0.9-7.0 [facility] Comment on above: Performed By: #### D ATCBC #### [facility] [address] [place] [address] Dr. Jessica Marie Erythrocyte distribution width (RBC) [Ratio] 13.5 % Normal 11.0-15.0 [facility] Comment on above: Performed By: #### D ATCBC #### [facility] [address] [place] [address] Dr. Jessica Marie Hematocrit (Bld) [Volume fraction] 38.1 % Normal 36.0-48.0 [facility] Comment on above: Performed By: #### D ATCBC #### [facility] [address] [place] [address] Dr. Jessica Marie Hemoglobin (Bld) [Mass/Vol] 12.7 g/dL Normal 12.0-16.0 [facility] Comment on above: Performed By: #### D ATCBC #### [facility] [address] [place] [address] Dr. Jessica Marie IG # 0.02 10e3/ul Normal 0.00-0.03 [facility] Comment on above: Performed By: #### D ATCBC #### [facility] [address] [place] [address] Dr. Jessica Marie IG % 0.3 % Normal 0.0-0.5 [facility] Comment on above: Performed By: #### D ATCBC #### [facility] [address] [place] [address] Dr. Jessica Marie LYMPH # 2.3 103/ul Normal 1.2-3.8 [facility] Comment on above: Performed By: #### D ATCBC #### [facility] [address] [place] [address] Dr. Jessica Marie Lymphocytes/100 WBC (Bld) 39.4 % Normal 20.5-60.0 [facility] Comment on above: Performed By: #### D ATCBC #### [facility] [address] [place] [address] Dr. Jessica Marie MCH (RBC) [Entitic mass] 31.2 pg Normal 26.7-34.0 [facility] Comment on above: Performed By: #### D ATCBC #### [facility] [address] [place] [address] Dr. Jessica Marie MCHC (RBC) [Mass/Vol] 33.3 g/dL Normal 29.9-35.2 [facility] Comment on above: Performed By: #### D ATCBC #### [facility] [address] [place] [address] Dr. Jessica Marie MCV (RBC) [Entitic vol] 93.6 fL Normal 81.0-99.0 [facility] Comment on above: Performed By: #### D ATCBC #### [facility] [address] [place] [address] Dr. Jessica Marie MONO # 0.4 103/ul Normal 0.3-0.8 [facility] Comment on above: Performed By: #### D ATCBC #### [facility] [address] [place] [address] Dr. Jessica Marie Monocytes/100 WBC (Bld) 6.9 % Normal 1.7-12.0 [facility] Comment on above: Performed By: #### D ATCBC #### [facility] [address] [place] [address] Dr. Jessica Marie NEUT # 3.0 103/ul Normal 1.4-6.5 [facility] Comment on above: Performed By: #### D ATCBC #### [facility] [address] [place] [address] Dr. Jessica Marie Neutrophils/100 WBC (Bld) 51.2 % Normal 43.0-75.0 [facility] Comment on above: Performed By: #### D ATCBC #### [facility] [address] [place] [address] Dr. Jessica Marie Platelet mean volume (Bld) [Entitic vol] 9.9 fL Normal 9.5-13.5 [facility] Comment on above: Performed By: #### D ATCBC #### [facility] [address] [place] [address] Dr. Jessica Marie PLT 194 103/ul Normal 150-450 [facility] Comment on above: Performed By: #### D ATCBC #### [facility] [address] [place] [address] Dr. Jessica Marie RBC 4.07 106/ul Critically low 4.20-5.40 [facility] Comment on above: Performed By: #### D ATCBC #### [facility] [address] [place] [address] Dr. Jessica Marie WBC 5.9 103/ul Normal 4.0-11.0 [facility] Comment on above: Performed By: #### D ATCBC #### [facility] [address] [place] [address] Dr. Jessica Marie JIM- BMP WITH LIPIDon 2022 Anion gap [Moles/Vol] 11.1 mmol/L Normal [facility] Comment on above: Performed By: #### D ATBMP #### [facility] [address] [place] [address] Dr. Jessica Marie Calcium [Mass/Vol] 9.2 mg/dL Normal 8.5-10.1 [facility] Comment on above: Performed By: #### D ATBMP #### [facility] [address] [place] [address] Dr. Jessica Marie Chloride [Moles/Vol] 105 mmol/L Normal 98-107 [facility] Comment on above: Performed By: #### D ATBMP #### [facility] [address] [place] [address] Dr. Jessica Marie Cholesterol [Mass/Vol] 216 mg/dL Critically high <=200 [facility] Comment on above: Performed By: #### D ATBMP #### [facility] [address] [address] [address] Jessica Marie Cholesterol in HDL [Mass/Vol] 62 mg/dL Critically high 40-60 [facility] Comment on above: Performed By: #### D ATBMP #### [facility] [address] [address] [address] Jessica Marie Cholesterol in LDL [Mass/Vol] 145.6 mg/dL Normal [facility] Comment on above: Performed By: #### D ATBMP #### [facility] [address] [address] [address] Jessica Marie CO2 [Moles/Vol] 28.8 mmol/L Normal 21.0-32.0 [facility] Comment on above: Performed By: #### D ATBMP #### [facility] [address] [place] [address] Dr. Jessica Marie Creatinine [Mass/Vol] 0.74 mg/dL Normal 0.55-1.02 [facility] Comment on above: Performed By: #### D ATBMP #### [facility] [address] [place] [address] Dr. Jessica Marie EGFR-AF SOUTH AFRICAN >60 Normal >=60 [facility] Comment on above: Performed By: #### D ATBMP #### [facility] [address] [address] [address] Jessica Marie EGFR-NON AF SOUTH AFRICAN >60 Normal >=60 [facility] Comment on above: Performed By: #### D ATBMP #### [facility] [address] [address] [address] Jessica Marie Glucose [Mass/Vol] 111 mg/dL Critically high 74-106 [facility] Comment on above: Performed By: #### D ATBMP #### [facility] [address] [address] [address] Jessica Marie HDL NORMAL > or = 60 mg/dl - LOW CARDIOVASCULAR RISK <40 mg/dl - HIGH CARDIOVASCULAR RISK Normal [facility] Comment on above: Performed By: #### D ATBMP #### [facility] [address] [address] [address] Jessica Marie LDL CALC NORMAL SEE BELOW Normal [facility] Comment on above: Result Comment: <100 mg/dl OPTIMAL 100 - 129 mg/dl NEAR OR ABOVE OPTIMAL 130 - 159 mg/dl BORDERLINE HIGH 160 - 189 mg/dl HIGH >190 mg/dl VERY HIGH Performed By: #### D ATBMP #### [facility] [address] [address] [address] Jessica Marie Potassium [Moles/Vol] 4.9 mmol/L Normal 3.5-5.1 [facility] Comment on above: Performed By: #### D ATBMP #### [facility] [address] [address] [address] Jessica Marie Sodium [Moles/Vol] 140 mmol/L Normal 136-145 [facility] Comment on above: Performed By: #### D ATBMP #### [facility] [address] [address] [address] Jessica Marie Triglyceride [Mass/Vol] 42 mg/dL Normal <=150 [facility] Comment on above: Performed By: #### D ATBMP #### [facility] [address] [address] [address] Jessica Marie Urea nitrogen [Mass/Vol] 15.0 mg/dL Normal 7.0-18.0 [facility] Comment on above: Performed By: #### D ATBMP #### [facility] [address] [address] [address] Jessica Marie Urea nitrogen/Creatinin e [Mass ratio] 20.3 mg/mg Normal [facility] Comment on above: Performed By: #### D ATBMP #### [facility] [address] [address] [address] Jessica Marie VLDL CALC 8.4 mg/dL Normal [facility] Comment on above: Performed By: #### D ATBMP #### [facility] [id number] Jessica Marie MG MAMM SCREEN 3D PRASHANTH CADon 06-21-2022 MG MAMM SCREEN 3D PRASHANTH CAD Patient: DONNA COLLAZO Exam Date: 06/21/2022 : 1955 Gender:F Ordering : DR KEN LONDON D.O. Admission #: [id number] Family : Order #: [id number] CLICK HERE TO VIEW EXAM RADIOLOGY REPORT [...] with lung cancer at age 66. LOCATION: [facility] BREAST COMPOSITION: Scattered areas fibroglandular density. FINDINGS: [...] MD on 06/21/2022 at 10:55 Normal [facility] MG MAMM SCREEN 3D PRASHANTH CAD [facility] Other Urinalysis - DIPSTICKon 05-26 Appearance (U) clear [employer] Other Bilirubin Ql (U) hegative [employer] Other Color (U) light yellow [facility] Other Glucose Ql (U) Negative [employer] Other Hemoglobin Ql (U) Negative [employer] Other Ketones Ql (U) Negative [employer] Other Leukocyte esterase Test strip Ql (U) trace [employer] Other Nitrite Ql (U) Negative [employer] Other pH (U) 5.0 [pH] [facility] Other Protein Ql (U) off chart [employer] Other Specific gravity (U) [Rel density] 1.005 [facility] Other Urobilinogen (U) [Mass/Vol] 0.2 mg/dL [facility] Other Urinalysis - DIPSTICK [employer] Other COVID/FLU RT-PCRon 3 SARS-CoV-2 (COVID-19) RNA SRAVANTHI+probe Ql (Unsp spec) Negative [facility] Other COVID/FLU RT-PCR Negative [employer] Other VAGINITIS/VAGINOSIS DNA PROB Fam[facility] 08-05-2021 Alexandra species Negative Normal Negative [facility] Comment on above: Performed By: #### V AGINT #### [facility] [address] [place] [address] Dr. Jessica Marie Gardnerella vaginalis Positive Abnormal Negative [facility] Comment on above: Performed By: #### V AGINT #### [facility] [address] [place] [address] Dr. Jessica Marie Trichomonas vaginalis Negative Normal Negative [facility] Comment on above: Performed By: #### V AGINT #### [facility] [address] [place] [address] Dr. Jessica Wilhelm 12-26-2018 [facility]OV Office Visit ([facility]) SHOCKDONNA ([id number]) 1955 F Date Time Provider Department 12/26/18 [...] has never been seen in neurology in [facility] or in [facility]. The patient was seen by Dr. Kel Kerr on 03/15/14 by Neurosurgery for a fall at work with left hip pain in its wake. The patient has never had neuroimaging of in [facility] or in [facility]. The patient has never undergone EMG in [facility] or in [facility]. The patient has never undergone EEG in [facility] or in [facility]. With that preamble, Chief Complaint: Donna Colalzo is a 63 year old female who presents with head injury. 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 Afterwards, she returned to [facility]. She was told if she was [...] who took her to the ED. At [facility], she underwent CT head, and was told [...] file Gets together: Not on file Attends sabianism service: Not on file Active member of [...] normal. There were no involuntary movements. Coordination: Ksqzjr-qyzd-ysoluu was normal. Finger and toe wiggling rapid [...] of October. Post-concussive symptoms usually clear over [id number]-akwzmf, but here the situation is murky because she has hit her head so many times. In my experience, post-concussive headaches sometimes linger longer than the other post-concussive symptoms. For the past month, they have been adequately treated symptomatically, ruqaceam-bz-pbyczwnk . It is not my specialty, but [...] History Recorded Letter Text Encounter Status:Closed by HONGKRISTA on 12/26/18 Normal [facility] PROGRESSon 12-26-2018 PROGRESS HNO ID: [id number] Author: Nell Thorne MA Service: ? Author [...] spine; difficulty breathing; fever or chills. Normal [facility] PROGRESSon 12-24-2018 PROGRESS HNO ID: [id number] Author: Krista Richey Service: ? Author Type: Physician Type: Progress Notes Filed: 01/28/2019 8:45 PM Note Text: Chart reviewed in advance of the patient's appointment. Parenthetic [comments] mine. The schedule shows the patient presents for head injury. The patient has never been seen in neurology in [facility] or in [facility]. The patient was seen by Dr. Kel Kerr on 03/15/14 by Neurosurgery for a fall at work with left hip pain in its wake. The patient has never had neuroimaging of in [facility] or in [facility]. The patient has never undergone EMG in [facility] or in [facility]. The patient has never undergone EEG in [facility] or in [facility]. With that preamble, Chief Complaint: Donna Collazo is a 63 year old female who presents with head injury. 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 Afterwards, she returned to [facility]. She was told if she was [...] who took her to the ED. At [facility], she underwent CT head, and was told [...] file Gets together: Not on file Attends sabianism service: Not on file Active member of [...] normal. There were no involuntary movements. Coordination: Sytfsd-fuix-khympf was normal. Finger and toe wiggling rapid [...] of October. Post-concussive symptoms usually clear over lsfbb-uk-orauty, but here the situation is murky because she has hit her head so many times. In my experience, post-concussive headaches sometimes linger longer than the other post-concussive symptoms. For the past month, they have been adequately treated symptomatically, bsogikcs-cj-wsxhehlu . It is not my specialty, but [...] 11/10/16 was unremarkable. Krista Richey MD Normal [facility] CT HEAD WO CONTRASTon 2016 CT [...] 12:56 PMIMPRESSION: Normal CT headInterpreted by:SUSAN Gonzalezigned by:Mary Stanford MD02/02/17Final result Normal [facility] ED Provider Noteon 7 HIM IP Note OR Shank Burnisher Normal [facility] DIGITAL SCREENING SELF R EFERRALon 12-23-2016 [facility] DIGITAL SCREENING SELF REFERRAL ADDENDUM #1 Comparison addendum:Previous digital mammograms of both breasts dated 09/03/2014 and 08/26/2015 have been obtained from the [facility] in [place], [place], for comparison with the current study [...] Category 1: Negative.Final report electronically signed by Ysoef Thapa on 12/22/2016 9:47 AMInterpreted by:SUSAN Enamoradoigned by:Yosef Thapa MD12/23/16CC Recipients:Stefanie Peralta CNM - In BasketEdited Result - FINAL Normal [facility] Vital Signs Date Time Vital Sign Value Performing Clinician Facility 01-06-2024 14:50-0400 Body height 152.4 cm [facility] 01-06-2024 14:50-0400 Body mass index (BMI) [Ratio] 27.4 kg/m2 [facility] 01-06-2024 14:50-0400 Body temperature 97.8 [degF] [facility] 01-06-2024 14:50-0400 Body weight 63.72 kg [facility] 01-06-2024 14:50-0400 Diastolic blood pressure 72 mm[Hg] [facility] 01-06-2024 14:50-0400 Heart rate 71 /min [facility] 01-06-2024 14:50-0400 Respiratory rate 18 /min [facility] 01-06-2024 14:50-0400 SaO2% (BldA) [Mass fraction] 98 % [facility] 01-06-2024 14:50-0400 Systolic blood pressure 131 mm[Hg] [facility] 10-04-2023 09:10-0400 Blood Pressure Location ANJELICA ORACIO [facility] 10-04-2023 09:10-0400 Body temperature 98.6 [degF] ANJELICA ORACIO [facility] 10-04-2023 09:10-0400 Diastolic blood pressure 77 mm[Hg] ANJELICA ORACIO [facility] 10-04-2023 09:10-0400 Heart rate 68 /min ANJELICA ORACIO [facility] 10-04-2023 09:10-0400 Respiratory rate 16 /min ANJELICA ORACIO [facility] 10-04-2023 09:10-0400 Systolic blood pressure 124 mm[Hg] ANJELICA ORACIO [facility] 09-21-2023 09:32-0400 Body height 152.4 cm [facility] 09-21-2023 09:32-0400 Body mass index (BMI) [Ratio] 26.4 kg/m2 [facility] 09-21-2023 09:32-0400 Body weight 61.23 kg [facility] 09-21-2023 09:32-0400 Diastolic blood pressure 76 mm[Hg] [facility] 09-21-2023 09:32-0400 Heart rate 75 /min [facility] 09-21-2023 09:32-0400 Respiratory rate 12 /min [facility] 09-21-2023 09:32-0400 Systolic blood pressure 120 mm[Hg] [facility] 08-09-2023 09:45-0400 Body height 152.4 cm [facility] 08-09-2023 09:45-0400 Body mass index (BMI) [Ratio] 26.4 kg/m2 [facility] 08-09-2023 09:45-0400 Body weight 61.23 kg [facility] 08-09-2023 09:45-0400 Diastolic blood pressure 73 mm[Hg] [facility] 08-09-2023 09:45-0400 Heart rate 79 /min [facility] 08-09-2023 09:45-0400 Respiratory rate 12 /min [facility] 08-09-2023 09:45-0400 Systolic blood pressure 126 mm[Hg] [facility] 12-10-2022 13:45-0400 Body height 152.4 cm Ken Ball Other [facility] Other 12-10-2022 13:45-0400 Body mass index (BMI) [Ratio] 25.58 kg/m2 Ken Ball Other [facility] Other 12-10-2022 13:45-0400 Body temperature 97.5 [degF] Ken Ball Other [facility] Other 12-10-2022 13:45-0400 Body weight 59.42 kg Ken Ball Other [facility] Other 12-10-2022 13:45-0400 Diastolic blood pressure 85 mm[Hg] Ken Ball Other [facility] Other 12-10-2022 13:45-0400 Systolic blood pressure 138 mm[Hg] Ken Ball Other [facility] Other 12-02-2022 17:20-0400 Body height 152.4 cm Jillian Thapa Other [facility] Other 12-02-2022 17:20-0400 Body mass index (BMI) [Ratio] 26.95 kg/m2 Jillian Thapa Other [facility] Other 12-02-2022 17:20-0400 Body temperature 97.2 [degF] Jillian Thapa Other [facility] Other 12-02-2022 17:20-0400 Body weight 62.6 kg Jillian Thapa Other [facility] Other 12-02-2022 17:20-0400 Diastolic blood pressure 62 mm[Hg] Jillian Thapa Other [facility] Other 12-02-2022 17:20-0400 Respiratory rate 18 /min Jillian Thapa Other [facility] Other 12-02-2022 17:20-0400 SaO2% (BldA) [Mass fraction] 99 % Jillian Thapa Other [facility] Other 12-02-2022 17:20-0400 Systolic blood pressure 131 mm[Hg] Jillian Thapa Other [facility] [employer] Other 09-28-2022 12:03-0400 Blood Pressure Location ANJELICA NARAYANAN [facility] 09-28-2022 12:03-0400 Diastolic blood pressure 74 mm[Hg] ANJELICA NARAYANAN [facility] 09-28-2022 12:03-0400 Heart rate 70 /min ANJELICA NARAYANAN [facility] 09-28-2022 12:03-0400 Systolic blood pressure 125 mm[Hg] ANJELICA NARAYANAN [facility] 06-18-2022 09:00-0500 Body height 152.4 cm Ken Ball Other [facility] [employer] Other 06-18-2022 09:00-0500 Body mass index (BMI) [Ratio] 25.78 kg/m2 Ken Ball Other [facility] Other 06-18-2022 09:00-0500 Body weight 59.88 kg Ken Ball Other [facility] Other 06-18-2022 09:00-0500 Diastolic blood pressure 66 mm[Hg] Ken Ball Other [employer] Other 06-18-2022 09:00-0500 Respiratory rate 12 /min Ken Ball Other [employer] Other 06-18-2022 09:00-0500 Systolic blood pressure 102 mm[Hg] Ken Ball Other [facility] Other 05-31-2022 10:45-0500 Body height 152.4 cm Indiana Holm Other [facility] Other 05-31-2022 10:45-0500 Body mass index (BMI) [Ratio] 27.53 kg/m2 Indiana Holm Other [facility] Other 05-31-2022 10:45-0500 Body temperature 97.8 [degF] Indiana Holm Other [facility] Other 05-31-2022 10:45-0500 Body weight 63.96 kg Indiana Holm Other [facility] Other 05-31-2022 10:45-0500 Respiratory rate 18 /min Indiana Holm Other [facility] Other 05-31-2022 10:45-0500 SaO2% (BldA) [Mass fraction] 97 % Indiana Holm Other [facility] Other Encounters Encounter Date Encounter Type Care Provider Facility Start: 10-05-2024 ambulatory Jean Garcia ty:RASHAWN Weiss Start: 01-06-2024 End: 01-06-2024 ambulatory [facility] Work Phone: Start: 01-06-2024 End: 01-06-2024 Patient encounter procedure [facility] Physician [facility] Work Phone: Start: 11-23-2023 End: 11-23-2023 ambulatory [facility] Work Phone: Start: 11-23-2023 End: 11-23-2023 Patient encounter procedure [facility] Physician [facility] Work Phone: Start: 11-14-2023 End: 11-14-2023 ambulatory [facility] Work Phone: Start: 11-14-2023 End: 11-14-2023 Patient encounter procedure [facility] Physician [facility] Work Phone: Start: 10-04-2023 End: 10-04-2023 ambulatory PA-C ANJELICA NARAYANAN Facility:[facility] Start: 10-04-2023 End: 10-04-2023 Patient encounter procedure ANJELCIA NARAYANAN [facility] Start: 09-21-2023 End: 09-21-2023 ambulatory [facility] Work Phone: Start: 09-21-2023 End: 09-21-2023 Patient encounter procedure [facility] Physician [facility] Work Phone: Start: 08-09-2023 End: 08-09-2023 ambulatory [facility] Work Phone: Start: 08-09-2023 End: 08-09-2023 Patient encounter procedure [facility] Physician [facility] Work Phone: Start: 07-15-2023 Non-patient / Non-visit [facility] Physician [facility] [place] Work Phone: Start: 03-28-2023 End: 03-28-2023 ambulatory PURNIMA TIMOTHY Not Available Start: 12-17-2022 End: 12-17-2022 ambulatory Ken London Other [facility] Other Start: 12-17-2022 Telephone encounter Ken London [facility] Start: 12-13-2022 End: 12-13-2022 ambulatory Ken London Other [facility] Other Start: 12-13-2022 Nursing evaluation o f patient and report Ken London [facility] Start: 12-13-2022 Telephone encounter Ken London FP [facility] Start: 12-10-2022 End: 12-10-2022 ambulatory Ken London Other [facility] Other Start: 12-10-2022 Office outpatient vi sit 15 minutes Ken London [facility] Start: 12-02-2022 End: 12-02-2022 ambulatory Jillian Thapa Other [employer] Other Start: 12-02-2022 Office outpatient vi sit 15 minutes Jillian Thapa [facility] Start: 09-28-2022 End: 09-28-2022 Patient encounter procedure [facility] Start: 06-21-2022 End: 06-22-[address] KEN LONDON Facility:[facility] Start: 06-18-2022 End: 06-18-2022 ambulatory Ken London Other [facility] Other Start: 06-18-2022 Initial preventive exam Ken tijerina [facility] Start: 06-18-2022 Patient encounter procedure Ken London [facility] Start: 06-10-2022 End: 06-10-2022 ambulatory Meli Martin Other [facility] Other Start: 06-10-2022 Nursing evaluation o f patient and report Meli Martin [facility] Start: 05-31-2022 End: 05-31-2022 ambulatory Indiana Holm Other [facility] Other Start: 05-31-2022 Office outpatient vi sit 15 minutes Indiana Holm [facility] Start: 04-28-2022 End: 04-28-2022 ambulatory Ken London Other [facility] Other Start: 04-28-2022 Telephone encounter Ken [facility] Start: 08-17-2021 Gynecological examin ation normal Jillian Thapa Other [employer] Other Start: 08-04-2021 End: 08-04-2021 ambulatory SIDDHARTHA KIMBALL Facility: Start: 06-15-2021 Adult health examination Precious Thapa Other [employer] Other Start: 03-22-2017 End: 03-26-2017 Ambulatory [facility] Start: 03-22-2017 Office outpatient ne w 30 minutes Silvestre Feng Haworth Work Phone: [facility] Start: 02-02-2017 End: 02-02-2017 Emergency department patient visit KEN LONDON [facility] Start: 12-21-2016 End: 12-22-2016 Ambulatory KEN LONDON [facility] Procedures Date Procedure Procedure Detail Performing Clinician Start: 05-09-2018 Screening mammography Jillianjess Thapa Other Start: 02-02-2017 Ct head/brain w/o contrast material PAO JENNYFER LONDON Start: 12-21-2016 Screeningmammographydigital KEN Tijerina Start: 2013 Cystourethroscopy with dilation of urethral stricture ANJELICA NARAYANAN Comment on above: 03/01/2013, 04/06/2012, 07/16/2011, 2009, 02/22/2006 Start: 03-08-2006 Urodynamic studies ANJELICA NARAYANAN Cataract care ANJELICA NARAYANAN Cholecystectomy ANJELICAAMARA NIX Depression screening Jillian Thapa Other Hysterectomy ANJELICA NARAYANAN Screening for malign ant neoplasm of breast Jillian Thapa Other Screening for malign ant neoplasm of colon Jillian Thapa Other Plan of Treatment Date Care Activity Detail Author Start: 12-24-2016 Influenza vaccination SEQUENTI AL INFLUENZA VACCINE (#1) [facility] Work Phone: Start: 1955 HEPATITIS C SCREENING HEPATITIS C SC ANGELINA [facility] Work Phone: Start: 1955 Screening colonoscopy COLONOSCOPY [facility] Work Phone: Start: 1955 Screening for malign ant neoplasm of cervix PAP SMEAR [facility] Work Phone: Start: 1955 Tetanus vaccination TETANUS EVERY 10 YR [facility] Work Phone: Patient Education Plantar Sandra Case [facility] Work Phone: Immunizations Immunization Date Immunization Notes Care Provider [facility] 02-09-2022 influenza virus vaccine, unspecified formulation ANJELICA NARAYANAN [facility] 02-09-2022 influenza, injectabl e, quadrivalent, preservative free [place] [facility] Other [facility] 05-11-2021 COVID-19 Vaccine Pfi zer - Documentation Purposes Only [place] Other [facility] 02-07-2021 influenza virus vaccine, unspecified formulation ANJELICA NARAYANAN [facility] 07-29-2020 COVID-19 Vaccine Pfi zer - Documentation Purposes Only [place] Other [facility] 07-09-2020 COVID-19 Vaccine Pfi zer - Documentation Purposes Only [place] Other [facility] 05-04-2019 influenza virus vaccine, split virus (incl. purified surface antigen) Jillian Thapa Other [facility] Other 05-04-2019 influenza virus vaccine, unspecified formulation [facility] Payers Date Payer Category Payer Medicare [id number] 2020 Unknown [id number] 2016 Unknown [id number] 2016 Unknown [id number]. [id number] 1959 Self-pay [id number] 1959 Unknown [id number] 1957 Unknown [id number] 2.16.84 [id number] 1957 Unknown [id number] 2.16.84 [id number] 1957 Unknown [id number] 1957 Unknown [id number] 2.16.8 [id number] 1957 Unknown [id number] 2.16.8 [id number] Medicare Medicare [id number] Unknown [id number] 2.16.84 [id number] Unknown [facility] [id number] Social History Date Type Detail Facility Start: 03-22-2017 End: 08-09-2023 Tobacco smoking status NHIS Never smoker [facility] Sex Assigned At Not on file [employer] Work Phone: Sex Assigned At [facility] Start: 1955 Sex Assigned At Female [facility] Functional Status Date Assessment Result Facility 10-04-2023 Functional Status N/A [facility] 09-28-2022 Functional Status N/A [facility] Clinical Notes 05-31-2022 to 10-04-2023 Note Date & Type Note Facility 10-04-2023 Hospital Discharg e instructions Patient Education 10/04/2023 09:26:25 Overactive Bladder, Adult Overactive Bladder, Adult Overactive [...] your health care provider. General instructions Take sqqi-loy-kgwuclw and prescription medicines only as told by [...] provider. Document Revised: 12/29/2020 Document Reviewed: 12/29/2020 [employer] Patient Education 2022 No [employer]. Follow Up Care 09/28/2022 12:24:07 With:ORACIO LOTT, ANJELICA Nino, URL Address: [address] [place] [address] When: Unknown [facility] 12-17-2022 Evaluation note Encounter Date Diagnosis Assessment Notes Nov, Monilial vaginitis (ICD-10 - B37.31) [facility] Other 08-21-2023 Evaluation note* Encounter Date Diagnosis Assessment Notes Treatment Notes Treatment Clinical Notes Nov, Dysuria (ICD-10 - R30.0) [facility] Other 08-18-2023 Evaluation note* Encounter Date Diagnosis [...] be Dentist Discussed [place], trial of Neurontin? [facility] Other 08-10-2023 Evaluation note* Encounter Date Diagnosis [...] antibiotic. Patient verbalized understanding of treatment plan. [facility] Other 08-10-2023 Evaluation note* Encounter Date Diagnosis [...] to prevent GI side effects, yeast infection. [facility] Other 06-06-2023 Hospital Discharge instructions Patient Education [...] your health care provider. General instructions Take zuyy-wgn-fsrgpdf and prescription medicines only as told by [...] provider. Document Revised: 12/29/2020 Document Reviewed: 12/29/2020 [employer] Patient Education 2022 No [employer]. 08/12/2022 14:20:46 Urinary Tract Infection, Adult Urinary [...] Treatment for this condition includes: Antibiotic medicine. Agsq-fcg-dfhrmeh medicines to treat discomfort. Drinking enough water [...] Follow these instructions at home: Medicines Take faao-ozy-ymsftqe and prescription medicines only as told by [...] provider. Document Revised: 11/21/2020 Document Reviewed: 11/21/2020 [employer] Patient Education 2022 No [employer]. Follow Up Care 08/12/2021 11:15:37 With:ANJELICA NARAYANAN PA-C, URL Address: When:1 year With:JB SANTOS, Jean R, URL Address: [facility] [address], [place] [address]- When: Unknown [facility] 02-24-2023 Evaluation note* Encounter Date Diagnosis Assessment [...] mammogram for breast cancer (ICD-10 - Z12.31) [facility] Other 02-16-2023 Evaluation note* Encounter Date Diagnosis Assessment Notes Treatment Notes Treatment Clinical Notes May, Dysuria (ICD-10 - R30.0) [facility] Other 02-06-2023 Evaluation note* Encounter Date Diagnosis [...] no improvement in 2 to 3 days [facility] Other Evaluation + Plan note Future Appointments Appointment Date:10/04/2023 09:00:00 AM Scheduled Provider:ANJELICA NARAYANAN PA-C Location:[facility] Appointment Type:URO Office Visit [facility] evaluation + Plan note Future Appointments Appointment Date:10/05/2024 08:15:00 AM Scheduled Provider:Jean MUHAMMAD MD Location:[facility] Appointment Type:URO Office Visit [facility]No [facility] Other [facility] note* Diagnosis Onset Date Resolution Status ASHLEY (generalized anxiety disorder) acute IFG (impaired fasting glucose) acute Osteopenia acute Medicare annual wellness visit, initial noneactive Screening mammogram for breast cancer noneactive [facility] Work Phone: evaluation note* Diagnosis Onset Date Resolution Status Acute sinusitis acute IFG (impaired fasting glucose) acute Monilial vaginitis acute [facility] Work Phone: evaluation note* Diagnosis Onset Date Resolution Status Plantar fasciitis of left foot acute [facility] Work Phone: His[facility] general Narrative - Reported* Type Description Date Medical History anxiety Medical History Bladder Spasms [facility] Other [facility] general Narrative - Reported* Type Description Date Medical History anxiety Medical History Bladder Spasms Surgical History cholecystectomy 1999 Surgical History cataract bilateral 2006 Surgical History ORIF right tib/fib Surgical History cysto with urethral dilation 20 Surgical History D&C Surgical History VICTOR MANUEL [facility] Other history general Narrative - Reported* Type Description Date [...] vaginitis Medical History Dysuria Surgical History cholecystectomy 1999 Surgical History cataract bilateral 2006 Surgical History ORIF right tib/fib Surgical History cysto with urethral dilation 20 06 Surgical History D&C Surgical History VICTOR MANUEL Hospitalization History see surgical history [facility] Other Hospital course Narrative No data available for this section [facility] progress note No data available for this section [facility] [employer] Assessments Diagnosis Xerosis cutis - Primary Other specified disease of sebaceous glands SK (seborrheic keratosis) Other seborrheic keratosis Summary Purpose Family History Relationship Condition Age at Onset Recorded Date/T sonia brother Diabetes mellitus Unknown family member Unknown Not Specified Osteoporosis Unknown Unknown Hypertension Unknown Diabetes mellitus Unknown Relationship Condition Age at Onset Recorded Date/T sonia brother Diabetes mellitus Unknown family member Unknown mother Osteoporosis Unknown Unknown Hypertension Unknown Diabetes mellitus Unknown Advance Directives Advance Directive Response Recorded Date/ Time Advance Directives No August 08, 024 9:23am Chief Complaint and Reason for Visit Chief Complaint Amb Documentation wellness Reason for Visit ASHLEY (generalized anx iety disorder) IFG (impaired fasting glucose) Osteopenia Medicare annual wellness visit, initial Screening mammogram for breast cancer Chief Complaint Amb Documentation wellness sinus infection Reason for Visit ASHLEY (generalized anx iety disorder) IFG (impaired fasting glucose) Osteopenia Medicare annual wellness visit, initial Screening mammogram for breast cancer Chief Complaint sinus infection UA Reason for Visit Acute sinusitis IFG (impaired fasting glucose) Monilial vaginitis Chief Complaint sinus infection UA UA, frequency, burning, lower back pain Reason for Visit Acute sinusitis IFG (impaired fasting glucose) Monilial vaginitis Chief Complaint UA UA, frequency, burning, lower back pain left heel pain no injury Reason for Visit Plantar fasciitis of left foot Additional Source Comments INFORMATION SOURCE (unrecogn ized section and content) DATE CREATED AUTHOR 10/18/2017 [facility] DATE CREATED AUTHOR AUTHOR'S THAIZ ATION 10/18/2017 [facility] DATE CREATED AUTHOR AUTHOR'S ORGANIZ ATION 01/29/2019 [facility] DATE CREATED AUTHOR AUTHOR'S ORGANIZ ATION 06/26/2022 [facility] DATE CREATED AUTHOR AUTHOR'S ORGANIZ ATION 03/29/2023 [facility] EPIC DATE CREATED AUTHOR AUTHOR'S ORGANIZ ATION 10/05/2023 [facility] REASON FOR VISIT (unrecogniz ed section and content) ClinicalRefillCONGESTION H/A COUGHuaWellnessSINUS INFECTION?SINUS INFECTION?EarUAATBYeast Infection Patient Care team informatio n (unrecognized section and content) Team Status: Active Member Role Status Dates Ken London DO Primary Care Provider Active Team Status: Inactive Member Role Status Dates Ken London DO Primary Care Provide r, Attending Provider Active Start: September 21, 2023 End: September 21, 2023 Team Status: Inactive Member Role Status Dates Ken London DO Primary Care Provide r, Attending Provider Active Start: November 14, 2023 End: November 14, 2023 Team Status: Active Member Role Status Dates PHYSICIAN NO FAMILY Primary Care Provider Active Start: July 15, 2023 OLIVER Rivero Attending Provider Active Start : July 15, 2023 Team Status: Inactive Member Role Status Lillian London DO Primary Care Provide r, Attending Provider Active Start: August 09, 2023 End: August 09, 2023 Team Status: Inactive Member Role Status Dates Ken London DO Primary Care Provide r, Attending Provider Active Start: November 23, 2023 End: November 23, 2023 Team Status: Inactive Member Role Status Dates Ken London DO Primary Care Provider Active Start: January 06, 2024 End: January 06, 2024 Jillian Thapa APRN Attending Provider Active Start: January 06, 2024 End: January 06, 2024 Goals (unrecognized section and content) Goals may be documented in a n alternate section FOR RECORDS PERTAINING TO PATIENTS WHO ARE [...] BE BASED ON THE PRIMARY CLINICAL RECORDS. [facility]. provides no warranty or guarantee of the accuracy or completeness of information in this document.
== END 2024-01-19 14:11 | disposition home or self-care (01) ==
LOC: EC 14:10
PROVIDERS: Visit Provider Physician Assistant
DX: M79.672 Pain in left foot (principal); M77.32 Calcaneal spur, left foot
CPT/HCPCS: 73630

== ENCOUNTER 2024-06-27 07:26 | Outpatient (OUT) | payer MEDICARE, OTHER, SELFPAY ==
--- OUTSIDE RECORDS SUMMARY | 2024-06-27 07:34 | XMS_ITS | CCD ---
Author Organization [facility] CliniSyri Care Team Providers Care Chicken Buyer Name Role Phone Meli Martin Unavailable SILVESTRE MACHUCA Unavailable Unavailable MELI MARTIN Unavailable Unavailable MARIO, MELI Nino Unavailable Unavailable BALL, KEN Nino Unavailable Unavailable SURYA, KEN Nino Unavailable Unavailable SURYA, KEN Nino Unavailable Unavailable MIRIAM JARAMILLO Unavailable Unavailable Ken Lonodn Unavailable SURYA, DR CHRISTIANSEN Primary Care Unavailable REQUEST, DR [...] Martin Unavailable KEN LONDON Primary Care Physician [phone] Jillian Thapa Unavailable PURNIMA AGUIRRE Attending Unavailable Jean MUHAMMAD Attending Unavailable OREN NARAYANAN Attending Unavailab le Allergies Allergy Classification Reported Allergen(s) Allergy Type Date of Onset Reaction(s) Facility Unclassified (1 source) No Known Medication Allergies; Translations: [No Known Medication Allergies] Propensity to adverse reactions (disorder) [facility] Repository (1 source) HYDROmorphone Drug Allergy 4 [facility] Rep[facility] (1 source) Ketorolac Drug Allergy [facility] (1 source) Levamisole Drug Allergy 3 [facility] Medications Current Medications Medication Drug Class(es) Dates Sig (Normalized) Sig (Original) ALPRAZolam 0.25 mg oral tablet (20 sources) Benzodiazepine Start: 07-29-2023 End: 05-09-2024 take 1 tablet by mouth every eight hours as needed for anxiety Alprazolam 0.25 mg tablet Active 0.25 MG PO Every 8 hours as needed for anxiety 90 90 May 09, 2024 5:46pm Start: 04-28-2022 take 1 tablet by socrates [...] Active calcium carbonate 1250 mg chewable tablet (9 sources) Start: 08-09-2023 take 1 tablet by mouth once daily Calcium Carbonate (Calcium 500) 500 mg calcium (1,250 mg) tablet,chewable Active 500 MG PO Daily August 08, 2023 11:00pm cefuroxime 500 mg oral tablet (7 sources) Cephalosporin Antibacterial Start: 09-21-2023 take 1 tablet by mouth twice daily Cefuroxime Axetil 500 mg tablet Active 500 MG PO Twice daily 10 September 20, 2023 11:00pm estradiol 0.1 mg/ml vaginal cream (20 sources) Estrogen Start: 08-09-2023 Estradiol 0.01 % (0.1 mg/gram) cream Active 1 APPLICATOR VAGINAL Daily August 08, 2023 11:00pm for 14 days Start: 04-21-2022 Estrace 0.1 mg /g Cream See Instructions, 42.5 gm, Refill(s) 3, 1 gram Vaginal 3x/week DISPENSE 3 MONTH SUPPLY, [id number], 152, cm, 08/12/21 10:53:00 EDT, Height/Length Dosing, 59, kg, 08/12/21 10:53:00 EDT, Weight Dosing Start Date: 04/21/22 Status: Ordered Estradiol 10 % a s directed Active Estradiol Acetat e Not-Taking Estradiol Acetat e Active fluticasone propionate 0.05 mg/actuat metered dose nasal spray (11 sources) Corticosteroid Start: 05-31-2022 take 2 spray(s) nasal route once daily hydrocortisone 10 mg/ml / neomycin 3.5 mg/ml / polymyxin b [id number] unt/ml otic suspension (4 sources) Aminoglycoside Antibacterial, Polymyxin-class Antibacterial, Corticosteroid Start: 12-10-2022 Neomycin-Polymy adonis-HC 3.5-82215-3 4 drops into affected ear Otic Three times a day for 7 days Nov, Active Loratadine (Allergy Relief (Loratadine)) 10 mg tablet,disintegratin g (9 sources) Start: 08-09-2023 take 1 tablet by mouth once daily Loratadine (Allergy Relief (Loratadine)) 10 mg tablet,disinteg rating Active 10 MG PO Daily August 08, 2023 11:00pm Start: 08-09-2023 take 1 tablet by socrates th once daily Loratadine (Allergy Relief (Loratadine)) 10 mg tablet,disintegrating Active 10 MG PO Daily August 09, 2023 12:00am Loratadine-D 12HR (4 sources) Loratadine-D 12H R Active Multivitamin (One Daily Multivitamin) tablet (9 sources) Start: 08-09-2023 take 1 tablet by mouth once daily Multivitamin (One Daily Multivitamin) tablet Active 1 TAB PO Daily August 08, 2023 11:00pm Start: 08-09-2023 take 1 tablet by socrates th once daily Multivitamin (One Daily Multivitamin) tablet Active 1 TAB PO Daily August 09, 2023 12:00am mupirocin 0.02 mg/mg topical ointment (3 sources) RNA Synthetase Inhibitor Antibacterial Start: 02-08-2024 Mupirocin 2 % ointment Active 1 APPLIC TOPICAL Twice daily 13 02February 07, 2024 11:00pm Use on nose sore Nature's Bounty Probiotic (2 sources) Start: 07-13-2019 Nature's Bount y Probiotic Oral, Daily, Refill(s) 0 Start Date: 07/13/19 Status: Ordered One A Day Women 50 Plus - (9 sources) One A Day Women 50 Plus - as directed Orally Active predniSONE 20 mg oral tablet (20 sources) Start: 01-06-2024 take 2 tablets by mouth once daily, then take 1 tablet by mouth once daily Prednisone 20 mg tablet Active 0 PO .COMPLEX 04 01January 05, 2024 11:00pm Take 2 tabs p.o. daily x 4 days, then take 1 tab p.o. daily x 4 days. Start: 01-06-2024 take 2 tablets by mo [facility] once daily, then take 1 tablet by mouth once daily Prednisone Active 0 PO .COMPLEX 04 01January 06, 2024 12:00am Take 2 tabs p.o. daily x 4 days, then take 1 tab p.o. daily x 4 days. Start: 12-10-2022 take 1 tablet by socrates th once daily predniSONE 20 MG 1 tablet Orally Once a day w/ food for 7 days Nov, Active Start: 05-31-2022 take 1 tablet by socrates th every twelve hours sertraline 100 mg oral tablet (20 sources) Serotonin Reuptake Inhibitor Start: 05-09-2024 take 1 tablet by mouth once daily Sertraline 100 mg tablet Active 100 MG PO Daily May 09, 2024 11:39am Start: 07-15-2023 End: 05-09-2024 Sertraline 100 mg tablet Discontinued 0 .ROUTE .COMPLEX February 08, 2024 8:13am May 09, 2024 11:39am TAKE 1 TABLET DAILY Start: 11-20-2018 End: 07-15-2023 take 1 tablet by mouth once daily Sertraline 100 mg tablet Discontinued 100 MG PO Daily July 14, 2023 11:00pm July 15, 2023 3:51pm Sertraline HCl 1 00 MG TAKE 1 TABLET DAILY for 90 Active solifenacin succinate 5 mg oral tablet (20 sources) Cholinergic Muscarinic Antagonist Start: 06-14-2023 take 1 tablet by mouth once daily Solifenacin (Vesicare) 5 mg tablet Active 5 MG PO Daily August 08, 2023 11:00pm Start: 08-12-2021 take 1 tablet by socrates th once daily Vesicare 5 mg Tab 5 mg = 1 tab(s), Oral, Daily, # 90 tab(s), Refills(s) 3, Pharmacy: [facility], 152, cm, 08/12/21 10:53:00 EDT, Height/Length Dosing, 59, kg, 08/12/21 10:53:00 EDT, Weight Dosing Start Date: 08/12/21 Status: Ordered Solifenacin Succ inate Not-Taking Solifenacin Succ inate Active sulfamethoxazole 800 mg / trimethoprim 160 mg oral tablet (12 sources) Dihydrofolate Reductase Inhibitor Antibacterial, Sulfonamide Antimicrobial Start: 11-14-2023 End: 01-30-2024 take 1 tablet by mouth twice daily Sulfamethoxazole-Trimethoprim 800-160 mg tablet Active 1 TAB PO Twice daily 10 January 30, 2024 9:19am Start: 12-13-2022 take 1 tablet by socrates th every twelve hours Sulfamethoxazole-Trimethoprim 800-160 MG 1 tablet Orally Twice a day for 5 days Nov, Active terconazole 4 mg/ml vaginal cream (9 sources) Azole Antifungal Triamcinolone (3 sources) Corticosteroid Start: 02-08-2024 Triamcinolone Acetonide 0.5 % ointment Active 1 APPLIC TOPICAL Twice daily February 07, 2024 11:00pm Use on finger rash Start: 02-08-2024 Triamcinolone Acetonide Active 1 APPLIC TOPICAL Twice daily February 08, 2024 12:00am Use on finger rash Completed/Discontinued Medications Medication Drug Class(es) Dates Sig (Normalized) Sig (Original) azithromycin 250 mg oral tablet (7 sources) Macrolide Antimicrobial Start: 09-21-2023 End: 09-21-2023 Azithromycin 250 mg tablet Discontinued 250 MG PO As Directed 09 27September 20, 2023 11:00pm September 21, 2023 8:56am fluconazole 150 mg oral tablet (20 sources) Azole Antifungal Start: 09-21-2023 End: 01-30-2024 take 1 tablet by mouth every week Fluconazole 150 mg tablet Discontinued 150 MG PO every week 2 November 13, 2023 11:00pm January 30, 2024 9:20am Start: 08-09-2023 End: 08-09-2023 take 1 tablet by mouth every week Fluconazole 150 mg tablet Discontinued 150 MG PO every week August 08, 2023 11:00pm August 09, 2023 9:02am Start: 05-31-2022 take 1 tablet by mouth once Fl uconazole 150 MG 1 tablet Orally once for 1 days Nov, Active Problems Active Problems Problem Classification Problem Date Documented Date Episodic/Chronic Abdominal pain (2 sources) Suprapubic pain 10-19-2018 Episodic Anxiety disorders (20 sources) Generalized anxiety disorder; Translations: [Generalized anxiety [...] (2 sources) Depressive disorder 11-20-2018 Chronic Mycoses (11 sources) Candidal vulvovaginitis; Translations: [Candidiasis of vulva and vagina] Onset: 06-21-2017 09-21-2023 Episodic Osteoarthritis (4 sources) Localized, primary osteoarthritis of the ankle and/or foot; Translations: [Primary localized osteoarthrosis, lower leg] Onset: 08-28-2013 Chronic Other aftercare (2 sources) History and physical examination, follow-up; Translations: [Encounter for follow-up examination after completed treatment for conditions other than malignant neoplasm] Episodic Other bone disease and musculoskeletal deformities (9 sources) Osteopenia; Translations: [Other specified disorders of bone density and structure, unspecified site] 08-07-2023 Episodic Other bone disease and musculoskeletal deformities (4 sources) Other specified disorders of bone density and structure, unspecified site; Translations: [Disorder of bone and cartilage, unspecified] 08-09-2023 Episodic Other congenital anomalies (2 sources) Congenital spondylolysis of lumbosacral region; Translations: [Congenital spondylolysis, lumbosacral region] Onset: 08-25-2015 Chronic Other connective tissue disease (2 sources) Plantar fascial fibromatosis; Translations: [Plantar fascial fibromatosis] Episodic Other connective tissue disease (5 sources) Plantar fasciitis of left foot; Translations: [Plantar fascial fibromatosis] 01-06-2024 Episodic Other connective tissue disease (4 sources) Plantar fascial fibromatosis; Translations: [Plantar fascial [...] index 31.0-31.9, adult] Onset: 05-04-2017 Chronic Other skin disorders (2 sources) Vesicular eczema; Translations: [Dyshidrosis [pompholyx]] 02-08-2024 Episodic Other skin disorders (2 sources) Folliculitis; Translations: [Follicular disorder, unspecified] 02-08-2024 Episodic Other skin disorders (1 source) Dyshidrosis [pompholyx]; Translations: [Dyshidrosis] 02-08-2024 Episodic Other skin disorders (1 source) Follicular disorder, unspecified; Translations: [Other specified diseases of hair and hair follicles] 02-08-2024 Episodic Other upper respiratory infections (17 sources) Acute sinusitis, unspecified; Translations: [Acute maxillary [...] - Chemistry and C hemistry - challengeon 02-20-2024 Bilirubin Ql (U) Negative [facility] Glucose (U) [Mass/Vol] Negative [facility] Ketones Ql (U) Negative [facility] pH (U) 6.0 [pH] [facility] Specific gravity (U) [Rel density] 1.015 [facility] Urobilinogen (U) [Mass/Vol] 0.2 mg/dL [facility] Laboratory - Specimen inform ationon 02-20-2024 Appearance (U) clear [facility] Color (U) yellow [facility] Laboratory - Urinalysison Leukocyte esterase Test strip Ql (U) Negative [facility] Nitrite Ql (U) Negative [facility] Protein Ql (U) + [facility] No Panel Informationon 02-19 Urine Occult Blood [facility] - Chemistry and C hemistry - challengeon 01-30-2024 Bilirubin Ql (U) Negative [facility] Glucose (U) [Mass/Vol] Negative [facility] Ketones Ql (U) Negative [facility] pH (U) 5.0 [pH] [facility] Specific gravity (U) [Rel density] 1.010 [facility] Urobilinogen (U) [Mass/Vol] 0.2 mg/dL [facility] Laboratory - Specimen inform ationon 01-30-2024 Appearance (U) cloudy [facility] Color (U) lightyellow [facility] Laboratory - Urinalysison Leukocyte esterase Test strip Ql (U) ++++ [facility] Nitrite Ql (U) Positive [facility] Protein Ql (U) ++ [facility] No Panel Informationon 01-29 Urine Occult Blood +++ [facility] - Chemistry and C hemistry - challengeon 11-23-2023 Bilirubin Ql (U) Negative [facility] Glucose (U) [Mass/Vol] Negative [facility] Ketones Ql (U) Negative [facility] pH (U) 5.0 [pH] [facility] Specific gravity (U) [Rel density] 1.000 [facility] Urobilinogen (U) [Mass/Vol] 0.2 mg/dL [facility] Laboratory - Specimen inform ationon 11-23-2023 Appearance (U) clear [facility] Color (U) lightyellow [facility] - Urinalysison Leukocyte esterase Test strip Ql (U) Negative [facility] Nitrite Ql (U) Negative [facility] Protein Ql (U) Negative [facility] No Panel Informationon 11-22 Urine Occult Blood [facility] - Chemistry and C hemistry - challengeon 11-14-2023 Bilirubin Ql (U) Negative [facility] Glucose (U) [Mass/Vol] Negative [facility] Ketones Ql (U) Negative [facility] pH (U) 5.0 [pH] [facility] Specific gravity (U) [Rel density] 1.005 [facility] Urobilinogen (U) [Mass/Vol] Negative [facility] Laboratory - Specimen inform ationon 11-14-2023 Appearance (U) cloudy [facility] Color (U) yellow [facility] - Urinalysison Leukocyte esterase Test strip Ql (U) +++ [facility] Nitrite Ql (U) Negative [facility] Protein Ql (U) ++ [facility] No Panel Informationon 11-13 Urine Occult Blood +++ [facility] 10-05-2023 Screens [id number] 1.00TIFF Normal [facility] Ambulatory Visit Summaryon 0 10-04-2023 Ambulatory Visit Summary DONNA COLLAZO :1955 Visit Date:10/04/2023 Ambulatory Visit Instructions Your [...] What to do next Scheduled Follow-Up Appointments Tuesday. 2024 8:15 AM EDT With: JB SANTOS, Jean Jo Where: [facility] Patient Educationon 10-04-19 Patient Education Obstetrics and [...] health care provider. General instructions ? Take [id number] and prescription medicines only as told by [...] included)... Normal [facility] Urology Office/Clinic Noteon 10-04-2023 Urology Office/Clinic Note [...] new tube, still got another infection. 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 Not interested in starting [...] Contact Information ORACIO LOTT, ANJELICA Nino, URL [address] [place] [address] Additional Instructions: 1 year Patient Education Overactive Bladder, Adult Documentation recorded by the scribnia Talamantes accurately reflects the services(s) I performed [...] Tobacco U (more content not included)... Normal [facility] Comment on above: Result Comment: Elec tronically Signed By: ANJELICA NARAYANAN PA-C\.br\Date and Time Signed: 10/04/23 10:04 EDT\.br\Electronically Co-Signed By: Amaris Talamantes\.br\Date and Time Co-Signed: 10/04/23 09:26 EDT Urinalysis - DIPSTICKon 08- Appearance (U) cloudy [employer] Other Bilirubin Ql (U) large [employer] Other Color (U) red [employer] Other Glucose Ql (U) Negative [employer] Other Hemoglobin Ql (U) [employer] Other Ketones Ql (U) trace [employer] Other Leukocyte esterase Test strip Ql (U) moderate [employer] Other Nitrite Ql (U) Positive [employer] Other pH (U) 5.0 [pH] [employer] Other Protein Ql (U) ++ [employer] Other Specific gravity (U) [Rel density] 1.020 [employer] Other Urobilinogen (U) [Mass/Vol] 0.2 mg/dL [employer] Other Urinalysis - DIPSTICK [employer] Other CBC AUTO DIFFon 06-21-2022 BASO # 0.0 103/ul Normal 0.0-0.1 [facility] Comment on above: Performed By: #### D ATCBC #### [facility] [address] [address] [address] Jessica Marie Basophils/100 WBC (Bld) 0.3 % Normal 0.2-2.0 [facility] Comment on above: Performed By: #### D ATCBC #### [facility] [address] [place] [address] Dr. Jessica Marie EO # 0.1 103/ul Normal 0.0-0.7 [facility] Comment on above: Performed By: #### D ATCBC #### [facility] [address] [place] [address] Dr. Jessica Marie Eosinophils/100 WBC (Bld) 1.9 % Normal 0.9-7.0 [facility] Comment on above: Performed By: #### D ATCBC #### [facility] [address] [place] [address] Dr. Jessica Marie Erythrocyte distribution width (RBC) [Ratio] 13.5 % Normal 11.0-15.0 [facility] Comment on above: Performed By: #### D ATCBC #### [facility] [address] [place] [address] Dr. Jessica Marie Hematocrit (Bld) [Volume fraction] 38.1 % Normal 36.0-48.0 [facility] Comment on above: Performed By: #### D ATCBC #### [facility] [address] [place] [address] Dr. Jessica Marie Hemoglobin (Bld) [Mass/Vol] 12.7 g/dL Normal 12.0-16.0 [facility] Comment on above: Performed By: #### D ATCBC #### [facility] [address] [place] [address] Dr. Jessica Marie IG # 0.02 10e3/ul Normal 0.00-0.03 [facility] Comment on above: Performed By: #### D ATCBC #### [facility] [address] [place] [address] Dr. Jessica Marie IG % 0.3 % Normal 0.0-0.5 [facility] Comment on above: Performed By: #### D ATCBC #### [facility] [address] [place] [address] Dr. Jessica Marie LYMPH # 2.3 103/ul Normal 1.2-3.8 [facility] Comment on above: Performed By: #### D ATCBC #### [facility] [address] [place] [address] Dr. Jessica Marie Lymphocytes/100 WBC (Bld) 39.4 % Normal 20.5-60.0 [facility] Comment on above: Performed By: #### D ATCBC #### [facility] [address] [place] [address] Dr. Jessica Marie MCH (RBC) [Entitic mass] 31.2 pg Normal 26.7-34.0 [facility] Comment on above: Performed By: #### D ATCBC #### [facility] [address] [place] [address] Dr. Jessica Marie MCHC (RBC) [Mass/Vol] 33.3 g/dL Normal 29.9-35.2 [facility] Comment on above: Performed By: #### D ATCBC #### [facility] [address] [place] [address] Dr. Jessica Marie MCV (RBC) [Entitic vol] 93.6 fL Normal 81.0-99.0 [facility] Comment on above: Performed By: #### D ATCBC #### [facility] [address] [place] [address] Dr. Jessica Marie MONO # 0.4 103/ul Normal 0.3-0.8 [facility] Comment on above: Performed By: #### D ATCBC #### [facility] [address] [place] [address] Dr. Jessica Marie Monocytes/100 WBC (Bld) 6.9 % Normal 1.7-12.0 [facility] Comment on above: Performed By: #### D ATCBC #### [facility] [address] [place] [address] Dr. Jessica Marie NEUT # 3.0 103/ul Normal 1.4-6.5 [facility] Comment on above: Performed By: #### D ATCBC #### [facility] [address] [place] [address] Dr. Jessica Marie Neutrophils/100 WBC (Bld) 51.2 % Normal 43.0-75.0 [facility] Comment on above: Performed By: #### D ATCBC #### [facility] [address] [place] [address] Dr. Jessica Marie Platelet mean volume (Bld) [Entitic vol] 9.9 fL Normal 9.5-13.5 [facility] Comment on above: Performed By: #### D ATCBC #### [facility] [address] [place] [address] Dr. Jessica Marie PLT 194 103/ul Normal 150-450 [facility] Comment on above: Performed By: #### D ATCBC #### [facility] [address] [place] [address] Dr. Jessica Marie RBC 4.07 106/ul Critically low 4.20-5.40 [facility] Comment on above: Performed By: #### D ATCBC #### [facility] [address] [place] [address] Dr. Jessica Marie WBC 5.9 103/ul Normal 4.0-11.0 [facility] Comment on above: Performed By: #### D ATCBC #### [facility] [address] [place] [address] Dr. Jessica Marie JIM- BMP WITH LIPIDon 2022 Anion gap [Moles/Vol] 11.1 mmol/L Normal [facility] Comment on above: Performed By: #### D ATBMP #### [facility] [address] [place] [address] Dr. Jessica Marie Calcium [Mass/Vol] 9.2 mg/dL Normal 8.5-10.[address] [facility] Comment on above: Performed By: #### D ATBMP #### [facility] [address] [place] [address] Dr. Jessica Marie Chloride [Moles/Vol] 105 mmol/L Normal 98-107 [facility] Comment on above: Performed By: #### D ATBMP #### [facility] [address] [place] [address] Dr. Jessica Marie Cholesterol [Mass/Vol] 216 mg/dL Critically high <=200 [facility] Comment on above: Performed By: #### D ATBMP #### [facility] [address] [address] [address] Jessica Marie Cholesterol in HDL [Mass/Vol] 62 mg/dL Critically high 40-60 [facility] Comment on above: Performed By: #### D ATBMP #### [facility] [address] [address] [address] Jessica Marie Cholesterol in LDL [Mass/Vol] 145.6 mg/dL Normal [facility] Comment on above: Performed By: #### D ATBMP #### [facility] [address] [address] [address] Jessica Marie CO2 [Moles/Vol] 28.8 mmol/L Normal 21.0-32.0 [facility] Comment on above: Performed By: #### D ATBMP #### [facility] [address] [place] [address] Dr. Jessica Marie Creatinine [Mass/Vol] 0.74 mg/dL Normal 0.55-1.02 [facility] Comment on above: Performed By: #### D ATBMP #### [facility] [address] [place] [address] Dr. Jessica Marie EGFR-AF [place]AST [place] >60 Normal >=60 [facility] Comment on above: Performed By: #### D ATBMP #### [facility] [address] [address] [address] Jessica Marie EGFR-NON AF [place] >60 Normal >=60 [facility] Comment on above: Performed By: #### D ATBMP #### [facility] [address] [address] [address] Jessica Marie Glucose [Mass/Vol] 111 mg/dL Critically high 74-106 [facility] Comment on above: Performed By: #### D ATBMP #### [facility] [address] [address] [address] Jessica Marie HDL NORMAL > or = 60 mg/dl - LOW CARDIOVASCULAR RISK <40 mg/dl - HIGH CARDIOVASCULAR RISK Normal [facility] Comment on above: Performed By: #### D ATBMP #### [facility] [address] [address] [address] Jessica Marie LDL CALC NORMAL SEE BELOW Normal [facility] Comment on above: Result Comment: <100 mg/dl OPTIMAL 100 - 129 mg/dl NEAR OR ABOVE OPTIMAL 130 - 159 mg/dl BORDERLINE HIGH 160 - 189 mg/dl HIGH >190 mg/dl VERY HIGH Performed By: #### D ATBMP #### [facility] [address] [address] [address] Jessica Marie Potassium [Moles/Vol] 4.9 mmol/L Normal 3.5-5.1 [facility] Comment on above: Performed By: #### D ATBMP #### [facility] [address] [address] [address] Jessica Marie Sodium [Moles/Vol] 140 mmol/L Normal 136-[address] [facility] Comment on above: Performed By: #### D ATBMP #### [facility] [address] [address] [address] Jessica Marie Triglyceride [Mass/Vol] 42 mg/dL Normal <=150 [facility] Comment on above: Performed By: #### D ATBMP #### [facility] [address] [address] [address] Jessica Marie Urea nitrogen [Mass/Vol] 15.0 mg/dL Normal 7.0-18.0 [facility] Comment on above: Performed By: #### D ATBMP #### [facility] [address] [address] [address] Jessica Marie Urea nitrogen/Creatinin e [Mass ratio] 20.3 mg/mg Normal [facility] Comment on above: Performed By: #### D ATBMP #### [facility] [address] [id number] Dr. Jessica Marie VLDL CALC 8.4 mg/dL Normal [facility] Comment on above: Performed By: #### D ATBMP #### [facility] [address] [address] [address] Jessica Marie MG MAMM SCREEN 3D PRASHANTH CADon 06-21-2022 MG MAMM SCREEN 3D PRASHANTH CAD Patient: DONNA COLLAZO Exam Date: 06/21/2022 : 1955 Gender:F Ordering : DR KEN LONDON D.O. Admission #: [id number] Family : Order #: [id number] CLICK HERE TO VIEW EXAM RADIOLOGY REPORT [...] lung cancer at age 66. LOCATION: [facility] BREAST COMPOSITION: Scattered areas fibroglandular density. [...] MD on 06/21/2022 at 10:55 Normal [facility] MG MAMM SCREEN 3D PRASHANTH CAD [employer] Other Urinalysis - DIPSTICKon 05-26 Appearance (U) clear [employer] Other Bilirubin Ql (U) hegative [employer] Other Color (U) light yellow [employer] Other Glucose Ql (U) Negative [employer] Other Hemoglobin Ql (U) Negative [employer] Other Ketones Ql (U) Negative [employer] Other Leukocyte esterase Test strip Ql (U) trace [employer] Other Nitrite Ql (U) Negative [employer] Other pH (U) 5.0 [pH] [employer] Other Protein Ql (U) off chart [employer] Other Specific gravity (U) [Rel density] 1.005 [employer] Other Urobilinogen (U) [Mass/Vol] 0.2 mg/dL [employer] Other Urinalysis - DIPSTICK [employer] Other COVID/FLU RT-PCRon 3 SARS-CoV-2 (COVID-19) RNA SRAVANTHI+probe Ql (Unsp spec) Negative [employer] Other COVID/FLU RT-PCR Negative [employer] Other VAGINITIS/VAGINOSIS DNA PROB Fam[facility] 08-05-2021 Alexandra species Negative Normal Negative [facility] Comment on above: Performed By: #### V AGINT #### [facility] [address] [place] [address] Dr. Jessica Marie Gardnerella vaginalis Positive Abnormal Negative [facility] Comment on above: Performed By: #### V AGINT #### [facility] [address] [place] [address] Dr. Jessica Marie Trichomonas vaginalis Negative Normal Negative [facility] Comment on above: Performed By: #### V AGINT #### [facility] [address] [place] [address] Dr. Jessica Wilhelm 12-26-2018 CNOV Office Visit ([facility]) SHOCKDONNA ([id number]) 1955 F Date Time Provider Department 12/26/18 [...] has never been seen in neurology in [facility] or in [facility]. The patient was seen by Dr. Kel Kerr on 03/15/14 by Neurosurgery for a fall at work with left hip pain in its wake. The patient has never had neuroimaging of in [facility] or in [facility]. The patient has never undergone EMG in [facility] or in [facility]. The patient has never undergone EEG in [facility] or in [facility]. With that preamble, Chief Complaint: Donna Collazo is a 63 year old female who presents with head injury. 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 Afterwards, she returned to [facility]. She was told if she was [...] who took her to the ED. At [facility], she underwent CT head, and was told [...] file Gets together: Not on file Attends rastafarian service: Not on file Active member of [...] and symmetric without bruits. Neurologic: Cranial Nerves: [place] at 11:00 am finds no nystagmus with [...] normal. There were no involuntary movements. Coordination: Yqydpj-vhyt-qnffvo was normal. Finger and toe wiggling rapid [...] of October. Post-concussive symptoms usually clear over oxtlw-iv-bipogd, but here the situation is murky because she has hit her head so many times. In my experience, post-concussive headaches sometimes linger longer than the other post-concussive symptoms. For the past month, they have been adequately treated symptomatically, qyfvtjqi-vy-fcnqypuz . It is not my specialty, but [...] Status:Closed by KRISTA RICHEY on 12/26/18 Normal [facility] PROGRESSon 12-26-2018 PROGRESS HNO ID: [id number] Author: Nell Thorne MA Service: ? Author [...] spine; difficulty breathing; fever or chills. Normal [facility] PROGRESSon 12-24-2018 PROGRESS HNO ID: [id number] Author: Krista Richey Service: ? Author Type: Physician Type: Progress Notes Filed: 01/28/2019 8:45 PM Note Text: Chart reviewed in advance of the patient's appointment. Parenthetic [comments] mine. The schedule shows the patient presents for head injury. The patient has never been seen in neurology in [facility] or in [facility]. The patient was seen by Dr. Kel Kerr on 03/15/14 by Neurosurgery for a fall at work with left hip pain in its wake. The patient has never had neuroimaging of in [facility] or in [facility]. The patient has never undergone EMG in [facility] or in [facility]. The patient has never undergone EEG in [facility] or in [facility]. With that preamble, Chief Complaint: Donna oCllazo is a 63 year old female who presents with head injury. 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 Afterwards, she returned to [facility]. She was told if she was [...] who took her to the ED. At [facility], she underwent CT head, and was told [...] file Gets together: Not on file Attends rastafarian service: Not on file Active member of [...] and symmetric without bruits. Neurologic: Cranial Nerves: [place] at 11:00 am finds no nystagmus with [...] normal. There were no involuntary movements. Coordination: Cxvmrh-zjoc-brvndh was normal. Finger and toe wiggling rapid [...] of October. Post-concussive symptoms usually clear over kuphc-yx-iagdts, but here the situation is murky because she has hit her head so many times. In my experience, post-concussive headaches sometimes linger longer than the other post-concussive symptoms. For the past month, they have been adequately treated symptomatically, xfknitev-rb-aqqodamv . It is not my specialty, but [...] 11/10/16 was unremarkable. Krista Richey MD Normal [facility] CT HEAD WO CONTRASTon 2016 [...] by:SUSAN Gonzalezigned by:Mary Stanford MD02/02/17Final result Normal [facility] ED Provider Noteon 7 HIM IP Note OR Outreach Professional Normal [facility] DIGITAL SCREENING SELF R EFERRALon 12-23-2016 [facility] DIGITAL SCREENING SELF REFERRAL ADDENDUM #1 Comparison addendum:Previous digital mammograms of both breasts dated 09/03/2014 and 08/26/2015 have been obtained from the [facility] in [place], [place], for comparison with the current study [...] - In BasketEdited Result - FINAL Normal [facility] Vital Signs Date Time Vital Sign Value Performing Clinician Facility 02-08-2024 08:59-0400 Body height 152.4 cm [facility] 02-08-2024 08:59-0400 Body mass index (BMI) [Ratio] 26.4 kg/m2 [facility] 02-08-2024 08:59-0400 Body weight 61.23 kg [facility] 02-08-2024 08:59-0400 Diastolic blood pressure 73 mm[Hg] [facility] 02-08-2024 08:59-0400 Heart rate 79 /min [facility] 02-08-2024 08:59-0400 Respiratory rate 12 /min [facility] 02-08-2024 08:59-0400 Systolic blood pressure 116 mm[Hg] [facility] 01-06-2024 14:50-0400 Body height 152.4 cm [facility] 01-06-2024 14:50-0400 Body mass index (BMI) [Ratio] 27.4 kg/m2 [facility] 01-06-2024 14:50-0400 Body temperature 97.8 [degF] [facility] 01-06-2024 14:50-0400 Body weight 63.72 kg [facility] 01-06-2024 14:50-0400 Diastolic blood pressure 72 mm[Hg] [facility] 01-06-2024 14:50-0400 Heart rate 71 /min [facility] 01-06-2024 14:50-0400 Respiratory rate 18 /min [facility] 01-06-2024 14:50-0400 SaO2% (BldA) [Mass fraction] 98 % [facility] 01-06-2024 14:50-0400 Systolic blood pressure 131 mm[Hg] [facility] 10-04-2023 09:10-0400 Blood Pressure Location ANJELICA NARAYANAN [facility] 10-04-2023 09:10-0400 Body temperature 98.6 [degF] ANJELICA NARAYANAN [facility] 10-04-2023 09:10-0400 Diastolic blood pressure 77 mm[Hg] ANJELICA NARAYANAN [facility] 10-04-2023 09:10-0400 Heart rate 68 /min ANJELICA NARAYANAN [facility] 10-04-2023 09:10-0400 Respiratory rate 16 /min ANJELICA NARAYANAN [facility] 10-04-2023 09:10-0400 Systolic blood pressure 124 mm[Hg] ANJELICA NARAYANAN [facility] 09-21-2023 09:32-0400 Body height 152.4 cm [facility] 09-21-2023 09:32-0400 Body mass index (BMI) [Ratio] 26.4 kg/m2 [facility] 09-21-2023 09:32-0400 Body weight 61.23 kg [facility] 09-21-2023 09:32-0400 Diastolic blood pressure 76 mm[Hg] [facility] 09-21-2023 09:32-0400 Heart rate 75 /min [facility] 09-21-2023 09:32-0400 Respiratory rate 12 /min [facility] 09-21-2023 09:32-0400 Systolic blood pressure 120 mm[Hg] [facility] 08-09-2023 09:45-0400 Body height 152.4 cm [facility] 08-09-2023 09:45-0400 Body mass index (BMI) [Ratio] 26.4 kg/m2 [facility] 08-09-2023 09:45-0400 Body weight 61.23 kg [facility] 08-09-2023 09:45-0400 Diastolic blood pressure 73 mm[Hg] [facility] 08-09-2023 09:45-0400 Heart rate 79 /min [facility] 08-09-2023 09:45-0400 Respiratory rate 12 /min [facility] 08-09-2023 09:45-0400 Systolic blood pressure 126 mm[Hg] [facility] 12-10-2022 13:45-0400 Body height 152.4 cm Ken Ball Other [employer] Other 12-10-2022 13:45-0400 Body mass index (BMI) [Ratio] 25.58 kg/m2 Ken Ball Other [employer] Other 12-10-2022 13:45-0400 Body temperature 97.5 [degF] Ken Ball Other [employer] Other 12-10-2022 13:45-0400 Body weight 59.42 kg Ken Ball Other [employer] Other 12-10-2022 13:45-0400 Diastolic blood pressure 85 mm[Hg] Ken Ball Other [employer] Other 12-10-2022 13:45-0400 Systolic blood pressure 138 mm[Hg] Ken Ball Other [employer] Other 12-02-2022 17:20-0400 Body height 152.4 cm Jillian Thapa Other [employer] Other 12-02-2022 17:20-0400 Body mass index (BMI) [Ratio] 26.95 kg/m2 Jillian Thapa Other [employer] Other 12-02-2022 17:20-0400 Body temperature 97.2 [degF] Jillian Thapa Other [employer] Other 12-02-2022 17:20-0400 Body weight 62.6 kg Jillian Thapa Other [employer] Other 12-02-2022 17:20-0400 Diastolic blood pressure 62 mm[Hg] Jillian Thapa Other [employer] Other 12-02-2022 17:20-0400 Respiratory rate 18 /min Jillian Thapa Other [employer] Other 12-02-2022 17:20-0400 SaO2% (BldA) [Mass fraction] 99 % Jillian Alanis Other [employer] Other 12-02-2022 17:20-0400 Systolic blood pressure 131 mm[Hg] Jillian Thapa Other [employer] Other 09-28-2022 12:03-0400 Blood Pressure Location ANJELICA ORACIO [facility] 09-28-2022 12:03-0400 Diastolic blood pressure 74 mm[Hg] ANJELICA ORACIO [facility] 09-28-2022 12:03-0400 Heart rate 70 /min ANJELICA ORACIO [facility] 09-28-2022 12:03-0400 Systolic blood pressure 125 mm[Hg] ANJELICA ORACIO [facility] 06-18-2022 09:00-0500 Body height 152.4 cm Ken London Other [employer] Other 06-18-2022 09:00-0500 Body mass index (BMI) [Ratio] 25.78 kg/m2 Ken Ball Other [facility] Other 06-18-2022 09:00-0500 Body weight 59.88 kg Ken Ball Other [employer] Other 06-18-2022 09:00-0500 Diastolic blood pressure 66 mm[Hg] Ken Ball Other [employer] Other 06-18-2022 09:00-0500 Respiratory rate 12 /min Ken Ball Other [employer] Other 06-18-2022 09:00-0500 Systolic blood pressure 102 mm[Hg] Ken Ball Other [employer] Other 05-31-2022 10:45-0500 Body height 152.4 cm Indiana Holm Other [employer] Other 05-31-2022 10:45-0500 Body mass index (BMI) [Ratio] 27.53 kg/m2 Indiana Emersonmond Other [employer] Other 05-31-2022 10:45-0500 Body temperature 97.8 [degF] Indiana Emersonmond Other [employer] Other 05-31-2022 10:45-0500 Body weight 63.96 kg Indiana Alta Other [employer] Other 05-31-2022 10:45-0500 Respiratory rate 18 /min Indiana Alta Other [employer] Other 05-31-2022 10:45-0500 SaO2% (BldA) [Mass fraction] 97 % Indiana Alta Other [employer] Other Encounters Encounter Date Encounter Type Care Provider Facility Start: 10-05-2024 ambulatory Jean Garcia ty:EU Abhishek Start: 05-14-2024 End: 05-14-2024 ambulatory [facility] Work Phone: Start: 05-14-2024 End: 05-14-2024 Patient encounter procedure [facility] Work Phone: Start: 02-22-2024 Non-patient / Non-visit [facility] Work Phone: Start: 02-20-2024 End: 02-20-2024 ambulatory [facility] Work Phone: Start: 02-20-2024 End: 02-20-2024 Patient encounter procedure [facility] Work Phone: Start: 02-08-2024 End: 02-08-2024 ambulatory [facility] Work Phone: Start: 02-08-2024 End: 02-08-2024 Patient encounter procedure [facility] Work Phone: Start: 01-30-2024 End: 01-30-2024 ambulatory [facility] Work Phone: Start: 01-30-2024 End: 01-30-2024 Patient encounter procedure [facility] Work Phone: Start: 01-06-2024 End: 01-06-2024 ambulatory [facility] Work Phone: Start: 01-06-2024 End: 01-06-2024 Patient encounter procedure [facility] Work Phone: Start: 11-23-2023 End: 11-23-2023 ambulatory [facility] Work Phone: Start: 11-23-2023 End: 11-23-2023 Patient encounter procedure [facility] Work Phone: Start: 11-14-2023 End: 11-14-2023 ambulatory [facility] Work Phone: Start: 11-14-2023 End: 11-14-2023 Patient encounter procedure [facility] Work Phone: Start: 10-04-2023 End: 10-04-2023 ambulatory PA-C ANJELICA NARAYANAN Facility:[facility] Start: 10-04-2023 End: 10-04-2023 Patient encounter procedure ANJELICA NARAYANAN [facility] Start: 09-21-2023 End: 09-21-2023 ambulatory [facility] Work Phone: Start: 09-21-2023 End: 09-21-2023 Patient encounter procedure [facility] Work Phone: Start: 08-09-2023 End: 08-09-2023 ambulatory [facility] Work Phone: Start: 08-09-2023 End: 08-09-2023 Patient encounter procedure [facility] Work Phone: Start: 07-15-2023 Non-patient / Non-visit [facility] Work Phone: Start: 03-28-2023 End: 03-28-2023 ambulatory PURNIMA TIMOTHY Not Available Start: 12-17-2022 End: 12-17-2022 ambulatory Ken London Other [employer] Other Start: 12-17-2022 Telephone encounter Ken London [facility] Start: 12-13-2022 End: 12-13-2022 ambulatory Ken London Other [employer] Other Start: 12-13-2022 Nursing evaluation o f patient and report Ken London [facility] Start: 12-13-2022 Telephone encounter Ken London [facility] Start: 12-10-2022 End: 12-10-2022 ambulatory Ken London Other [employer] Other Start: 12-10-2022 Office outpatient vi sit 15 minutes Ken Surya [facility] Start: 12-02-2022 End: 12-02-2022 ambulatory Jillian Thapa Other [employer] Other Start: 12-02-2022 Office outpatient vi sit 15 minutes Jillian Thapa [facility] Start: 09-28-2022 End: 09-28-2022 Patient encounter procedure ANJELICA NARAYANAN [facility] Start: 06-21-2022 End: 06-22-[address] KEN LONDON Facility:[facility] Start: 06-18-2022 End: 06-18-2022 ambulatory Ken London Other [employer] Other Start: 06-18-2022 Initial preventive exam Ken tijerina [facility] Start: 06-18-2022 Patient encounter procedure Ken London [facility] Start: 06-10-2022 End: 06-10-2022 ambulatory Meli Martin Other [employer] Other Start: 06-10-2022 Nursing evaluation o f patient and report Meli Martin [facility] Start: 05-31-2022 End: 05-31-2022 ambulatory Indiana Holm Other [employer] Other Start: 05-31-2022 Office outpatient vi sit 15 minutes Indiana Holm [facility] Start: 04-28-2022 End: 04-28-2022 ambulatory Ken London Other [employer] Other Start: 01-04-2023 Telephone encounter Ken London No rth [employer] Start: 08-17-2021 Gynecological examin ation normal Jillian Thapa Other [employer] Other Start: 08-04-2021 End: 08-04-2021 ambulatory SIDDHARTHA KIMBALL Facility: Start: 06-15-2021 Adult health examination Precious suarez Alanis Other [facility] Other Start: 03-22-2017 End: 03-26-2017 [facility]ulatory [facility] Start: 03-22-2017 Office outpatient ne w 30 minutes Silvestre Feng [place] Work Phone: [facility] Start: 02-02-2017 End: 02-02-2017 Emergency department patient visit KEN LONDON [facility] Start: 12-21-2016 End: 12-22-2016 Ambulatory KEN Nino [facility] Procedures Date Procedure Procedure Detail Performing Clinician Start: 05-09-2018 Screening mammography Jillian Alanis Other Start: 02-02-2017 Ct head/brain w/o contrast material PAO JENNYFER LONDON Start: 12-21-2016 Screeningmammographydigital KEN Tijerina Start: 2013 Cystourethroscopy with dilation of urethral stricture ANJELICA NARAYANAN Comment on above: 03/01/2013, 04/06/2012, 07/16/2011, 2009, 02/22/2006 Start: 03-08-2006 Urodynamic studies ANJELICAAMARA NARAYANAN Cataract care ANJELICA NARAYANAN Cholecystectomy ANJELICAAMARA NIX Depression screening Jillian Thapa Other Hysterectomy ANJELICA NARAYANAN Screening for malign ant neoplasm of breast Jillian Thapa Other Screening for malign ant neoplasm of colon Jillian Thapa Other Plan of Treatment Date Care Activity Detail Author Start: 12-24-2016 Influenza vaccination SEQUENTI AL INFLUENZA VACCINE (#1) [facility] Work Phone: Start: 1955 HEPATITIS C SCREENING HEPATITIS C SC ANGELINA [facility] Work Phone: Start: 1955 [facility] Work [facility]: Start: 1955 Screening for malign ant neoplasm of cervix PAP SMEAR [facility] Work Phone: Start: 1955 Tetanus vaccination TETANUS EVERY 10 YR [facility] Work Phone: Patient Education Plantar Sandra Case [facility] Work Phone: [facility] Immunizations Immunization Date Immunization Notes Care Provider Fa [facility] 02-08-2024 influenza, high dose seasonal, preservative-free [facility] 02-09-2022 influenza virus vaccine, unspecified formulation ANJELICA NARAYANAN [facility] 02-09-2022 influenza, injectabl e, quadrivalent, preservative free Indiana Holm Other [facility] 05-11-2021 COVID-19 Vaccine Pfi zer - Documentation Purposes Only Indiana Holm Other [facility] 02-07-2021 influenza virus vaccine, unspecified formulation ANJELICA NARAYANAN [facility] 07-29-2020 COVID-19 Vaccine Pfi zer - Documentation Purposes Only Indiana Holm Other [facility] 07-09-2020 COVID-19 Vaccine Pfi zer - Documentation Purposes Only [place] Holm Other [facility] 05-04-2019 influenza virus vaccine, split virus (incl. purified surface antigen) Jillian Thapa Other [employer] Other 05-04-2019 influenza virus vaccine, unspecified formulation [facility] Payers Date Payer Category Payer Medicare [id number] 2020 Unknown [id number] 2016 Unknown [id number] 2016 Unknown [id number] 2. [id number] 1959 Self-pay [id number] 1959 Unknown [id number] 1955 Unknown [id number] 2.16.84 [id number] 1955 Unknown [id number] 2.16.84 [id number] 1955 Unknown [id number] 1955 Unknown [id number] 2.16.8 [id number] 1955 Unknown [id number] 2.16.8 [id number] Medicare Medicare [id number] [id number] Unknown [id number] 2.16.84 [id number] Unknown MMO [id number] Social History Date Type Detail Facility Start: 03-22-2017 End: 08-09-2023 Tobacco smoking status NHIS Never smoker [facility] Sex Assigned At Not on file [employer] Work Phone: Sex Assigned At [facility] Start: 1955 Sex Assigned At Female F [facility] Start: 05-14-2024 Sex [facility] Functional Status Date Assessment Result Facility 10-04-2023 Functional Status N/A [facility] 09-28-2022 Functional Status N/A [facility] Clinical Notes 05-31-2022 to 10-04-2023 Note Date [...] your health care provider. General instructions Take vpif-lbf-iucxyzh and prescription medicines only as told by [...] provider. Document Revised: 12/29/2020 Document Reviewed: 12/29/2020 [employer] Patient Education 2022 [employer]. Follow Up Care 09/28/2022 12:24:07 With:ORACIO LOTT, ANJELICA Nino, URL Address: [address] [place] [address] [facility] [place] [address] When: Unknown [facility] 12-17-2022 Evaluation note Encounter Date Diagnosis Assessment Notes Nov, Monilial vaginitis (ICD-10 - B37.31) [employer] Other 08-21-2023 Evaluation note* Encounter Date Diagnosis Assessment Notes Treatment Notes Treatment Clinical Notes Nov, Dysuria (ICD-10 - R30.0) [employer] [facility] Other 08-18-2023 Evaluation note* Encounter Date Diagnosis [...] be Dentist Discussed [place], trial of Neurontin? [employer] Other 08-10-2023 Evaluation note* Encounter Date Diagnosis [...] antibiotic. Patient verbalized understanding of treatment plan. [employer] Other 08-10-2023 Evaluation note* Encounter Date Diagnosis [...] to prevent GI side effects, yeast infection. [employer] Other 06-06-2023 Hospital Discharge instructions Patient Education [...] your health care provider. General instructions Take lbzr-han-rtnphvc and prescription medicines only as told by [...] provider. Document Revised: 12/29/2020 Document Reviewed: 12/29/2020 [employer] Patient Education 2022 [employer]. 08/12/2022 14:20:46 Urinary Tract Infection, Adult Urinary [...] Treatment for this condition includes: Antibiotic medicine. Dvhb-ogr-quutopj medicines to treat discomfort. Drinking enough water [...] Follow these instructions at home: Medicines Take tohp-vfs-rhzdgry and prescription medicines only as told by [...] provider. Document Revised: 11/21/2020 Document Reviewed: 11/21/2020 [employer] Patient Education 2022 [employer]. Follow Up Care 08/12/2021 11:15:37 With:ORACIO LOTT, ANJELICA Nino, URL Address: When:1 year With:JB SANTOS, Jean Jo, URL Address: [facility] [address], [place] [address]- When: Unknown [facility] 02-24-2023 Evaluation note* Encounter Date Diagnosis [...] mammogram for breast cancer (ICD-10 - Z12.31) [facility] Other 02-16-2023 Evaluation note* Encounter Date Diagnosis Assessment Notes Treatment Notes Treatment Clinical Notes May, Dysuria (ICD-10 - R30.0) [facility] Other 02-06-2023 Evaluation note* Encounter Date Diagnosis [...] no improvement in 2 to 3 days [facility] [employer] Other Evaluation + Plan note Future Appointments Appointment Date:10/04/2023 09:00:00 AM Scheduled Provider:ANJELICA NARAYANAN PA-C Location:[facility] Appointment Type:URO Office Visit [facility] evaluation + Plan note Future Appointments Appointment Date:10/05/2024 08:15:00 AM Scheduled Provider:Jean MUHAMMAD MD Location:[facility] Appointment Type:URO Office Visit [facility] Other evaluation note* Diagnosis Onset Date Resolution Status ASHLEY (generalized anxiety disorder) acute IFG (impaired fasting glucose) acute Osteopenia acute Medicare annual wellness visit, initial noneactive Screening mammogram for breast cancer noneactive [facility] Work Phone: Evaluation note* Diagnosis Onset Date Resolution Status Acute sinusitis acute IFG (impaired fasting glucose) acute Monilial vaginitis acute [facility] Work Phone: Evaluation note* Diagnosis Onset Date Resolution Status Plantar fasciitis of left foot acute [facility] Work Phone: Evaluation note* Diagnosis Onset Date Resolution Status Plantar fasciitis of left foot acute ASHLEY (generalized anxiety disorder) acute IFG (impaired fasting glucose) acute Osteopenia acute [facility] Work Phone: Evaluation note* Diagnosis Onset Date Resolution Status Plantar fasciitis of left foot acute Eczema, dyshidrotic acute Folliculitis of nose acute ASHLEY (generalized anxiety disorder) acute IFG (impaired fasting glucose) acute Osteopenia acute [facility] Work Phone: Evaluation noteNo assessment information available [facility] Work Phone: History general Narrative - Reported* Type Description Date Medical History anxiety Medical History Bladder Spasms [facility] Other [facility] general Narrative - Reported* Type Description Date Medical History anxiety Medical History Bladder Spasms Surgical History cholecystectomy 2000 Surgical History cataract bilateral 2005 Surgical History ORIF right tib/fib Surgical History cysto with urethral dilation 20 06 Surgical History D&C Surgical History VICTOR MANUEL [facility] Other Hislrb[facility] general Narrative - Reported* Type Description Date [...] History cholecystectomy 2000 Surgical History cataract bilateral 2005 Surgical History ORIF right tib/fib Surgical History cysto with urethral dilation 20 06 Surgical History D&C Surgical History VICTOR MANUEL Hospitalization History see surgical history [facility] Other Hospital course Narrative No data available for this section [facility] progress note No data available for this section [facility] Assessments Diagnosis Xerosis cutis - Primary [...] Date/ Time Advance Directives No August 08, 9:23am Advance Directive Response Recorded Date/ Time Advance Directives No August 08, 2 024 8:23am Chief Complaint and Reason for Visit Chief [...] for Visit Plantar fasciitis of left foot Chief Complaint UA UA, frequency, burning, lower back pain left heel pain no injury UA, burning and frequency Reason for Visit Plantar fasciitis of left foot Chief Complaint UA UA, frequency, burning, lower back pain left heel pain no injury UA, burning and frequency 6 month follow up Reason for Visit Plantar fasciitis of left foot ASHLEY (generalized anxiety disorder) IFG (impaired fasting glucose) Osteopenia Chief Complaint UA, frequency, burni ng, lower back pain left heel pain no injury UA, burning and frequency 6 month follow up UA, recheck Reason for Visit Plantar fasciitis of left foot Eczema, dyshidrotic Folliculitis of nose ASHLEY (generalized anxiety disorder) IFG (impaired fasting glucose) Osteopenia Chief Complaint Admit Date UA, recheck February 20, 2024 9 :30am CC Adult Risk Stratification January 10:00am UA, frequency/pressure May 14 8:54am Additional Source Comments INFORMATION SOURCE (unrecogn ized section and content) DATE CREATED AUTHOR 10/18/2017 [facility] DATE CREATED AUTHOR AUTHOR'S ORGANIZ ATION 10/18/2017 [facility] DATE CREATED AUTHOR AUTHOR'S ORGANIZ ATION 01/29/2019 [facility] DATE CREATED AUTHOR AUTHOR'S ORGANIZ ATION 06/26/2022 [facility] DATE CREATED AUTHOR AUTHOR'S ORGANIZ ATION 03/29/2023 [facility] DATE CREATED AUTHOR AUTHOR'S ORGANIZ ATION 10/05/2023 [facility] REASON FOR VISIT (unrecogniz ed section and content) ClinicalRefillCONGESTION H/A COUGHuaWellnessSINUS INFECTION?SINUS INFECTION?EarUAATBYeast Infection Patient Care team informatio n (unrecognized section and content) Team Status: Active Member Role Status Lillian London , DO Primary Care Provider Active Team Status: Inactive Member Role Status Lillian [...] Role Status Lillian London DO Primary Care Provider Active Start: January 06, 2024 End: January 06, 2024 Jillian Thapa APRN Attending Provider Active Start: January 06, 2024 End: January 06, 2024 Team Status: Inactive Member Role Status Lillian London DO Primary Care Provide r, Attending Provider Active Start: January 30, 2024 End: January 30, 2024 Team Status: Inactive Member Role Status Lillian London DO Primary Care Provide r, Attending Provider Active Start: February 08, 2024 End: February 08, 2024 Team Status: Inactive Member Role Status Lillian London DO Primary Care Provide r, Attending Provider Active Start: February 20, 2024 End: February 20, 2024 Team Status: Active Member Role Status Lillian London DO Primary Care Provide r, Attending Provider Active Start: February 22, 2024 Team Status: Inactive Member Role Status Lillian London DO Primary Care Provide r, Attending Provider Active Start: May 14, 2024 End: May 14, 2024 Goals (unrecognized section and content) Goals [...] BE BASED ON THE PRIMARY CLINICAL RECORDS. [facility], [facility]. provides no warranty or guarantee of the accuracy or completeness of information in this document.
--- NOTE | 2024-06-27 07:38 | MM_ITS ---
Patient Name: PORSCHE MILLS MR#: [id number] : 1955 Exam Date: 06/27/2024 Ordering Doctor: DR Ken London D.O. RADIOLOGY REPORT PROCEDURE: MM TOMOSYNTHESIS SCREENING BI COMPARISON: MM TOMOSYNTHESIS SCREENING BI, 06/22/2023. MG MAMM SCREEN 3D PRASHANTH CAD, 06/21/2022. MG MAMM SCREEN 3D PRASHANTH CAD, 06/17/2021. MG MAMM PRASHANTH SCRN W CAD DIG, 07/31/2013. INDICATIONS: Screening Calculator Name NCI Breast Cancer Risk Assessment Tool 5 Year Breast Cancer Risk 3.50% Lifetime Breast Cancer Risk 12.30% Personal Breast Cancer No Personal Ovarian Cancer No Treatments None Family Cancers Sister with breast cancer at age 60; Brother with lung cancer at age 64. LOCATION: The [facility] BREAST COMPOSITION: There are scattered areas of fibroglandular density. FINDINGS: DIAGNOSTIC CATEGORY 1--NEGATIVE. RECOMMENDATIONS: ROUTINE MAMMOGRAM AND CLINICAL EVALUATION IN 12 MONTHS. PLEASE NOTE: A NORMAL MAMMOGRAM DOES NOT EXCLUDE THE POSSIBILITY OF BREAST CANCER. A CLINICALLY SUSPICIOUS PALPABLE LUMP SHOULD BE BIOPSIED. LEFT BREAST: No significant suspicious finding. RIGHT BREAST: No significant suspicious finding. Dictated by: Nguyễn Ruiz DO on 06/28/2024 at 15:35 Approved by: Nguyễn Ruiz DO on 06/28/2024 at 15:36
== END 2024-06-27 07:27 | disposition home or self-care (01) ==
LOC: MAMMO 07:31
PROVIDERS: PCP Internal Medicine; Visit Provider Internal Medicine
DX: Z12.31 Encounter for screening mammogram for malignant neoplasm of breast (principal); Z80.3 Family history of malignant neoplasm of breast; Z80.1 Family history of malignant neoplasm of trachea, bronchus and lung
CPT/HCPCS: 77063; 77067

== ENCOUNTER 2025-02-11 10:01 | Outpatient (OUT) | payer MEDICARE, OTHER, SELFPAY ==
--- NOTE | 2025-02-11 10:09 | XR_ITS ---
The [address] [address] Patient Name: PORSCHE MILLS MRN: [id number] date: 1955 Sex: F Assigned Patient Location: [facility] Current Patient Location: [facility] Accession/Order Number: [id number] Exam Date: 02/11/2025 10:15 Report Date: 02/11/2025 13:41 At the request of: KULDIP HAWKINS DO Procedure: XR hip BI w PEL 1V CLINICAL HISTORY: Low Back Pain, Bilateral Hip Pain LUMBAR SPINE WITH FLEXION-EXTENSION VIEWS - 6 views: COMPARISON: None AP, lateral (neutral, flexion and extension) and both oblique views were obtained. There is osteopenia. There is no evidence of fracture. There is minor stairstep retrolisthesis from L1-2 through L4-5. Alignment does not change significantly with flexion or extension. Disc space narrowing and endplate sclerosis are seen at L3-4. Tiny endplate spurs are visualized. There is lower lumbar facet hypertrophy. No pars defect is identified. The sacroiliac joints are maintained. There are no paraspinal soft tissue abnormalities. This atherosclerotic plaque at the aorta. XR/XR lumbar spine 6V w bending IMPRESSION: OSTEOPENIA AND DEGENERATIVE CHANGES, GREATEST AT L3-4. ADULT PELVIS WITH BILATERAL HIPS - 5 views COMPARISON: None AP view of the pelvis as well as AP and frog-lateral views of both hips were obtained. There is osteopenia. No acute fracture, dislocation or bony destruction is seen. The hip joint spaces are symmetric. There is minor marginal spurring. Enthesophytes are present at the iliac crests and trochanters. The SI joints are maintained and show minor sclerosis. The soft tissues are unremarkable. Atherosclerotic plaque is seen. IMPRESSION: OSTEOPENIA AND MILD DEGENERATIVE CHANGES. Impression dictated by: Qing Dominguez M.D. 02/11/2025 1:41 PM Dictation Location: [place] [address] Electronically authenticated by: [id number] Y Date: 02/11/2025 13:41
--- NOTE | 2025-02-11 10:09 | XR_ITS ---
The [address] [address] Patient Name: PORSCHE MILLS MRN: [id number] date: 1955 Sex: F Assigned Patient Location: [facility] Current Patient Location: [facility] Accession/Order Number: [id number] Exam Date: 02/11/2025 10:15 Report Date: 02/11/2025 13:41 At the request of: KULDIP HAWKINS DO Procedure: XR hip BI w PEL 1V CLINICAL HISTORY: Low Back Pain, Bilateral Hip Pain LUMBAR SPINE WITH FLEXION-EXTENSION VIEWS - 6 views: COMPARISON: None AP, lateral (neutral, flexion and extension) and both oblique views were obtained. There is osteopenia. There is no evidence of fracture. There is minor stairstep retrolisthesis from L1-2 through L4-5. Alignment does not change significantly with flexion or extension. Disc space narrowing and endplate sclerosis are seen at L3-4. Tiny endplate spurs are visualized. There is lower lumbar facet hypertrophy. No pars defect is identified. The sacroiliac joints are maintained. There are no paraspinal soft tissue abnormalities. This atherosclerotic plaque at the aorta. XR/XR hip BI w PEL 1V IMPRESSION: OSTEOPENIA AND DEGENERATIVE CHANGES, GREATEST AT L3-4. ADULT PELVIS WITH BILATERAL HIPS - 5 views COMPARISON: None AP view of the pelvis as well as AP and frog-lateral views of both hips were obtained. There is osteopenia. No acute fracture, dislocation or bony destruction is seen. The hip joint spaces are symmetric. There is minor marginal spurring. Enthesophytes are present at the iliac crests and trochanters. The SI joints are maintained and show minor sclerosis. The soft tissues are unremarkable. Atherosclerotic plaque is seen. IMPRESSION: OSTEOPENIA AND MILD DEGENERATIVE CHANGES. Impression dictated by: Qing Dominguez M.D. 02/11/2025 1:41 PM Dictation Location: [place] [address] Electronically authenticated by: [id number] Y Date: 02/11/2025 13:41
--- OUTSIDE RECORDS SUMMARY | 2025-02-11 10:11 | XMS_ITS | CCD ---
Author Organization [facility]iniSynd Care Team Providers Care Medical Case Manager Name Role Phone Meli Martin Unavailable SILVESTRE MACHUCA Unavailable Unavailable MELI MARTIN Unavailable Unavailable MELI MARTIN Unavailable Unavailable KEN LONDON Unavailable Unavailable KEN LONDON Unavailable Unavailable SHRUTHI, KEN Nino Unavailable Unavailable [...] SIDDHARTHA Admitting Unavailable KARASIK, SIDDHARTHA Consulting Unavailable SHRUTHI, DR CHRISTIANSEN Primary Care Unavailable Indiana Holm Unavailable Meli Martin Unavailable KEN LONDON Primary Care Physician Jillian Thapa Unavailable Jean ANGELES Attending Unavailable Jean ANGELES Attending Unavailable Ken London DO Primary Care Provider BELL COVARRUBIAS Attending Unavailable Allergies Allergy Classification Reported Allergen(s) Allergy Type Date of Onset Reaction(s) Facility (1 source) HYDROmorphone Drug Allergy 4 [facility] (1 source) Ketorolac Drug Allergy [facility] (1 source) Levamisole Drug Allergy 3 [facility] (1 source) No Known Medication Allergies; Translations: [No Known Medication Allergies] Propensity to adverse reactions (disorder) [facility] Repository Medications Current Medications Medication Drug [...] by mouth every twelve hours Ascorbic Acid (3 sources) Vitamin C Start: 07-13-2019 Vitamin C Daily, Refills(s) 0 Start Date: 07/13/19 Status: Ordered Repeat number: 1 Start: 07-13-2019 Vitamin C Damian y, Refills(s) 0 Start Date: 07/13/19 Status: Ordered Calcium (9 sources) Phosphate Binder, Calcium Calcium 500 +D Active calcium carbonate 1250 mg chewable tablet (10 sources) Start: 4 take 1 tablet by mouth once daily Calcium Carbonate (Calcium 500) 500 mg calcium (1,250 mg) tablet,chewable Active 500 MG PO Daily August 09, 2023 12:00am cefuroxime 500 mg oral tablet (8 sources) Cephalosporin Antibacterial Start: 4 take 1 tablet by mouth twice daily Cefuroxime Axetil 500 mg tablet Active 500 MG PO Twice daily 01 27September 21, 2023 12:00am cephalexin 500 mg oral capsule (3 sources) Cephalosporin Antibacterial Start: 5 End: 5 take 1 capsule by mouth in the morning, then take 1 capsule by mouth in the evening, then take 1 capsule by mouth at bedtime cephalexin (Keflex) 500 MG capsule Indications: Urinary tract infection without hematuria, site unspecified Take 1 capsule (500 mg) by mouth in the morning and 1 capsule (500 mg) in the evening and 1 capsule (500 mg) before bedtime. Do all this for 7 days. 21 capsule 10/23/2024 10/30/2024 Active Cranberry preparation (1 source) Non-Standardized Food Allergenic Extract, Non-Standardized Plant Allergenic Extract Start: 5 cranberry Refill(s) 0 Start Date: 10/05/24 Status: Ordered Repeat number: 1 estradiol 0.1 mg/ml vaginal cream (20 sources) Estrogen Start: 5 estradiol 0.1 mg/g Vag Crm 0.1 mg, Vaginal, As Directed, 42.5 gm, Refill(s) 3, Apply 1 gm twice per week., [id number], 152, cm, 10/05/24 8:36:00 EDT, Height/Length Dosing, 60.5, kg, 10/05/24 8:36:00 EDT, Weight Dosing Start Date: 10/05/24 Status: Ordered Quantity: 42.5 Unit: g Repeat number: 4 Start: 08-09-2023 Estradiol 0.01 % (0.1 mg/gram) cream Active 1 APPLICATOR VAGINAL Daily August 09, 2023 12:00am for 14 days Start: 04-21-2022 Estrace 0.1 mg /g Cream See Instructions, 42.5 gm, Refill(s) 3, 1 gram Vaginal 3x/week DISPENSE 3 MONTH SUPPLY, [id number], 152, cm, 08/12/21 10:53:00 EDT, Height/Length Dosing, [...] / neomycin 3.5 mg/ml / polymyxin b 15523 unt/ml otic suspension (4 sources) Aminoglycoside Antibacterial, Polymyxin-class Antibacterial, Corticosteroid Start: 12-10-2022 Neomycin-Polymy adonis-HC [id number] 4 drops into affected ear Otic Three times a day for 7 days Nov, Active Loratadine (Allergy Relief (Loratadine)) 10 mg tablet,disintegratin g (10 sources) Start: 08-09-2023 take 1 tablet by [...] R Active Multivitamin (One Daily Multivitamin) tablet (10 sources) Start: 08-09-2023 take 1 tablet by mouth once daily Multivitamin (One Daily Multivitamin) tablet Active 1 TAB PO Daily August 08, 2023 11:00pm Start: 08-09-2023 take 1 tablet by socrates th once daily Multivitamin (One Daily Multivitamin) tablet Active 1 TAB PO Daily August 09, 2023 12:00am mupirocin 0.02 mg/mg topical ointment (4 sources) RNA Synthetase Inhibitor Antibacterial Start: 02-08-2024 Mupirocin 2 % ointment Active 1 APPLIC TOPICAL Twice daily 13 02February 08, 2024 12:00am Use on nose sore Nature's Bounty Probiotic (3 sources) Start: 07-13-2019 Nature's Bount y Probiotic Oral, Daily, Refill(s) 0 Start Date: 07/13/19 Status: Ordered Repeat number: 1 Start: 07-13-2019 Nature's Bount y Probiotic Oral, Daily, Refill(s) 0 Start Date: 07/13/19 Status: Ordered One A Day Women 50 Plus - (9 sources) One A Day Women 50 Plus - as directed Orally Active sertraline 100 mg oral tablet (20 sources) Serotonin Reuptake Inhibitor Start: 07-15-2023 End: 05-09-2024 Sertraline 100 mg tablet Discontinued 0 .ROUTE .COMPLEX February 08, 2024 9:13am May 09, 2024 12:39pm TAKE 1 TABLET DAILY Start: 11-20-2018 End: 05-14-2024 take 1 tablet by mouth once daily Sertraline 100 mg tablet Active 100 MG PO Daily May 14, 2024 10:25am Sertraline HCl 1 00 MG TAKE 1 TABLET DAILY for 90 Active solifenacin succinate 5 mg oral tablet (20 sources) Cholinergic Muscarinic Antagonist Start: 08-12-2021 take 1 tablet by mouth once daily Solifenacin (Vesicare) 5 mg tablet Active 5 MG PO Daily August 09, 2023 12:00am Solifenacin Succ inate Not-Taking Solifenacin Succ inate Active terconazole 4 mg/ml vaginal cream (9 sources) Azole Antifungal Completed/Discontinued Medications Medication Drug Class(es) Dates Sig (Normalized) Sig (Original) ALPRAZolam 0.25 mg oral tablet (20 sources) Benzodiazepine Start: 07-29-2023 End: 08-10-2024 take 1 tablet by mouth every eight hours as needed for anxiety Alprazolam 0.25 mg tablet Discontinued 0.25 MG PO Every 8 hours as needed for anxiety 90 90 February 08, 2024 9:13am May 09, 2024 6:47pm Start: 04-28-2022 take 1 tablet by socrates th every eight hours as needed for anxiety ALPRAZolam 0.25 MG 1 tablet Orally every 8 hours, PRN anxiety Apr, Active Start: 11-20-2018 take 1 tablet by socrates th once daily alprazolam 0.25 mg Tab 0.25 mg = 1 tab(s), Oral, Daily Start Date: 11/20/18 Status: Ordered Repeat number: 1 azithromycin 250 mg oral tablet (8 sources) Macrolide Antimicrobial Start: 09-21-2023 End: 09-21-2023 Azithromycin 250 mg tablet Discontinued 250 MG PO As Directed 6 5 September 21, 2023 12:00am September 21, 2023 9:56am fluconazole 150 mg oral tablet (20 sources) Azole Antifungal Start: 10-23-2024 End: 10-23-2024 take 1 tablet by mouth once, then take 1 tablet by mouth once fluconazole (Diflucan) 150 MG tablet Indications: Yeast infection Take 1 tablet (150 mg) by mouth 1 (one) time for 1 dose This is a 1 time dose, take single tablet by mouth. 1 tablet 1 10/23/2024 10/23/2024 Start: 09-21-2023 End: 01-30-2024 take 1 tablet by mouth every week Fluconazole 150 mg tablet Discontinued 150 MG PO every week 06 08November 14, 2023 12:00am January 30, 2024 10:20am Start: 08-09-2023 End: 08-09-2023 take 1 tablet by mouth every week Fluconazole 150 mg tablet Discontinued 150 MG PO every week August 09, 2023 12:00am August 09, 2023 10:02am Start: 05-31-2022 take 1 tablet by mouth once Fl uconazole 150 MG 1 tablet Orally once for 1 days Nov, Active metroNIDAZOLE 0.013 mg/mg vaginal gel (2 sources) Nitroimidazole Antimicrobial Start: 10-23-2024 End: 10-23-2024 metroNIDAZOLE (Nuvessa) 1.3 % gel Indications: BV (bacterial vaginosis) Insert 1 Application into the vagina 1 time for 1 dose 5 g 10/23/2024 10/23/2024 predniSONE 20 mg oral tablet (20 sources) Start: 01-06-2024 End: 08-10-2024 take 2 tablets by mouth once daily, then take 1 tablet by mouth once daily Prednisone 20 mg tablet Discontinued 0 PO .COMPLEX 04 01January 06, 2024 12:00am August 10, 2024 9:09am Take 2 tabs p.o. daily x 4 days, then take 1 tab p.o. daily x 4 days. Start: 12-10-2022 take 1 tablet by socrates th once daily predniSONE 20 MG 1 tablet Orally Once a day w/ food for 7 days Nov, Active Start: 05-31-2022 take 1 tablet by socrates th every twelve hours sulfamethoxazole 800 mg / trimethoprim 160 mg oral tablet (14 sources) Dihydrofolate Reductase Inhibitor Antibacterial, Sulfonamide Antimicrobial Start: 11-14-2023 End: 08-10-2024 take 1 tablet by mouth twice daily Sulfamethoxazole-Trimethoprim 800-160 mg tablet Discontinued 1 TAB PO Twice daily 01 27January 30, 2024 10:19am August 10, 2024 9:09am Start: 12-13-2022 take 1 tablet by socrates th every twelve hours Sulfamethoxazole-Trimethoprim 800-160 MG 1 tablet Orally Twice a day for 5 days Nov, Active Triamcinolone (5 sources) Corticosteroid Start: 06-24-2024 End: 08-10-2024 Triamcinolone Acetonide 0.5 % ointment Discontinued 0 .ROUTE .COMPLEX June 24, 2024 5:44pm August 10, 2024 9:09am APPLY TWICE A DAY TO RASH ON FINGER Start: 02-08-2024 End: 06-24-2024 Triamcinolone Acetonide 0.5 % ointment Discontinued 1 APPLIC TOPICAL Twice daily February 08, 2024 12:00am June 24, 2024 5:44pm Use on finger rash Start: 02-08-2024 Triamcinolone Acetonide 0.5 % ointment Active 1 APPLIC TOPICAL Twice daily February 07, 2024 11:00pm Use on finger rash Start: 02-08-2024 Triamcinolone Acetonide Active 1 APPLIC TOPICAL Twice daily February 08, 2024 12:00am Use on finger rash Problems Active Problems Problem Classification Problem Date Documented Date Episodic/Chronic Abdominal pain (3 sources) Suprapubic pain 10-19-2018 Episodic Anxiety disorders (20 sources) Generalized anxiety disorder; Translations: [Generalized anxiety disorder] Chronic Delirium, dementia, and amnestic and other cognitive disorders (12 sources) Postconcussion syndrome; Translations: [Postconcussional syndrome] Chronic Diabetes mellitus without complication (20 sources) Impaired fasting glycemia; Translations: [Impaired fasting glucose] Episodic Disorders of lipid metabolism (12 sources) Pure hypercholesterolemia; Translations: [Pure hypercholesterolemia, unspecified] Chronic Endometriosis (3 sources) Endometriosis (clinical) 11-20-2018 Chronic Genitourinary symptoms and ill-defined conditions (7 sources) Female stress incontinence; Translations: [Stress incontinence (female) (male)] Onset: 10-04-2023 07-13-2019 Chronic Genitourinary symptoms and ill-defined conditions (20 sources) Dysuria; Translations: [Dysuria] Episodic Headache; including migraine (9 sources) Chronic post-traumatic headache; Translations: [Chronic post-traumatic headache, not intractable] Onset: 11-15-2017 Chronic Inflammatory diseases of female pelvic organs (14 sources) Vaginitis and vulvovaginitis; Translations: [Acute vaginitis] 10-23-2024 Episodic Intracranial injury (13 sources) Concussion without loss of consciousness, initial encounter; Translations: [Concussion with no loss of consciousness] Onset: 02-02-2017 Episodic Menopausal disorders (12 sources) Atrophy of vagina; 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 Mood disorders (3 sources) Depressive disorder 11-20-2018 Chronic Mycoses (14 sources) Candidal vulvovaginitis; Translations: [Candidiasis of vulva and vagina] Onset: 06-21-2017 09-21-2023 Episodic Osteoarthritis (4 sources) Localized, primary osteoarthritis of the ankle and/or foot; Translations: [Primary localized osteoarthrosis, lower leg] Onset: 08-28-2013 Chronic Other aftercare (2 sources) History and physical examination, follow-up; Translations: [Encounter for follow-up examination after completed treatment for conditions other than malignant neoplasm] Episodic Other bone disease and musculoskeletal deformities (10 sources) Osteopenia; Translations: [Other specified disorders of bone density and structure, unspecified site] 08-07-2023 Episodic Other bone disease and musculoskeletal deformities (5 sources) Other specified disorders of bone density and structure, unspecified site; Translations: [Disorder of bone and cartilage, unspecified] 08-09-2023 Episodic Other congenital anomalies (2 sources) Congenital spondylolysis of lumbosacral region; Translations: [Congenital spondylolysis, lumbosacral region] Onset: 08-25-2015 Chronic Other connective tissue disease (2 sources) Plantar fascial fibromatosis; Translations: [Plantar fascial fibromatosis] Episodic Other connective tissue disease (6 sources) Plantar fasciitis of left foot; Translations: [Plantar fascial fibromatosis] 01-06-2024 Episodic Other connective tissue disease (4 sources) Plantar fascial fibromatosis; Translations: [Plantar fascial fibromatosis] 01-06-2024 Episodic Other diseases of bladder and urethra (3 sources) Detrusor overactivity; Translations: [Overactive bladder] Onset: 08-12-2022 Chronic Other diseases of bladder and urethra (3 sources) Overactive bladder 08-12-2021 Chronic Other diseases [...] Episodic Other female genital disorders (2 sources) Vaginal discharge; Translations: [Other specified noninflammatory disorders of vagina] 10-23-2024 Episodic Other injuries and conditions due to [...] adult] Onset: 05-04-2017 Chronic Other skin disorders (3 sources) Vesicular eczema; Translations: [Dyshidrosis [pompholyx]] 02-08-2024 Episodic Other skin disorders (3 sources) Folliculitis; Translations: [Follicular disorder, unspecified] 02-08-2024 Episodic Other skin disorders (1 source) Dyshidrosis [pompholyx]; Translations: [Dyshidrosis] 02-08-2024 Episodic Other skin disorders (1 source) Follicular disorder, unspecified; Translations: [Other specified diseases of hair and hair follicles] 02-08-2024 Episodic Other upper respiratory infections (18 sources) Acute sinusitis, unspecified; Translations: [Acute maxillary [...] neoplasm of breast] Onset: 12-21-2016 Episodic Unclassified (3 sources) Finding of sensation of bladder 06-27-2019 Unclassified (2 sources) Acute candidiasis of vulva and vagina; Translations: [Acute candidiasis of vulva and vagina] Urinary tract infections (6 sources) Chronic cystitis; Translations: [Other chronic cystitis without hematuria] Onset: 08-12-2022 Chronic Urinary tract infections (18 sources) Acute cystitis; Translations: [Acute cystitis without [...] Test Name Value Interpretation Reference Range Facility No Panel Informationon 10-24 STAPHYLOCOCCUS EPIDERMIDIS, HAEMOLYTICUS, LUGDUNENSIS, SAPROPHYTICUS (URINA 0 [facility] STAPHYLOCOCCUS EPIDERMIDIS, HAEMOLYTICUS, LUGDUNENSIS, SAPROPHYTICUS (URINA Not detected [facility] URINARY TRACT INFECTION (HTR X)on 10-24-2024 ACINETOBACTER BAUMANII 0 [facility] ACINETOBACTER BAUMANII Not detected [facility] ALEXANDRA ALBICANS, PARAPSILOSIS, TROPICALIS 0 [facility] ALEXANDRA ALBICANS, PARAPSILOSIS, TROPICALIS Not detected [facility] ALEXANDRA GLABRATA 0 [facility] ALEXANDRA GLABRATA Not detected [facility] ALEXANDRA KRUSEI 0 [facility] ALEXANDRA KRUSEI Not detected [facility] CITROBACTER FREUNDII 0 [facility] CITROBACTER FREUNDII Not detected [facility] ENTEROBACTER AEROGENES, CLOACAE 0 [facility] re ENTEROBACTER AEROGENES, CLOACAE Not detected [facility] re ENTEROCOCCUS FAECALIS, FAECIUM [address] [facility] e ENTEROCOCCUS FAECALIS, FAECIUM Not detected [facility] e ESCHERICHIA COLI 0 [facility] ESCHERICHIA COLI Not detected [facility] KLEBSIELLA PNEUMONIAE, OXYTOCA 0 [facility] are KLEBSIELLA PNEUMONIAE, OXYTOCA Not detected [facility] are MORGANELLA MORGANII 0 [facility] Healthcare MORGANELLA MORGANII Not detected [facility] PROTEUS MIRABILIS, VULGARIS 0 [facility] PROTEUS MIRABILIS, VULGARIS Not detected [facility] PSEUDOMONAS AERUGINOSA 0 [facility] PSEUDOMONAS AERUGINOSA Not detected [facility] SERRATIA MARCESCENS 0 [facility] SERRATIA MARCESCENS Not detected [facility] STAPHYLOCOCCUS AUREUS 0 [facility] STAPHYLOCOCCUS AUREUS Not detected [facility] STREPTOCOCCUS AGALACTIAE (GROUP B STREP) 0 [facility] STREPTOCOCCUS AGALACTIAE (GROUP B STREP) Not detected [facility] STREPTOCOCCUS PYOGENES (GROUP A STREP) 0 [facility] STREPTOCOCCUS PYOGENES (GROUP A STREP) Not detected [facility] Ambulatory Visit Summaryon 0 10-05-2024 Ambulatory Visit Summary Ambulatory Visit Summary DONNA COLLAZO :1955 Visit Date:10/05/2024 Ambulatory Visit Instructions Your Diagnosis Chronic cystitis without hematuria OAB (overactive bladder) Postinfective urethral stricture in female Stress incontinence Your Care Team Attending Physician - Jean ANGELES MD Primary Care Physician - KEN LONDON DO This Is Your Medications List Contact prescribing physician if questions or concerns alprazolam (alprazolam 0.25 mg Tab) ascorbic acid (Vitamin C) bifidobacterium-lact obacillus (Nature's Bounty Probiotic) sertraline (sertraline 100 mg Tab) Procedures Performed Cystourethroscopy with dilation of urethral stricture (2013), Urodynamics (03/08/2006), Cataract care, Cholecystectomy, Hysterectomy. Discharge Vitals Heart Rate (Peripheral) 75 Blood Pressure 127/77 Height 152 cm Height 60 in Weight 60.5 kg Weight 133.38 lb BMI 26.19 What to do next You Need to Schedule the Following Appointments Follow Up with JB SANTOS, Jean Jo, URSavage When: Where: [address] [place] [id number]- Medications What How Much When Instructions Unchanged alprazolam (alprazolam 0.25 mg Tab) 1 Tablets By Mouth Every day Contact prescribing physician if questions or concerns Unchanged ascorbic acid (Vitamin C) Every day Contact prescribing physician if questions or concerns Unchanged bifidobacterium-lact obacillus (Nature's Bounty Probiotic) By Mouth Every day Contact prescribing physician if questions or concerns Unchanged sertraline (sertraline 100 mg Tab) 1 Tablets By Mouth Every day Contact prescribing physician if questions or concerns Allergies No Known Medication Allergies Problems Ongoing - Any problem that you are currently receiving treatment for. Chronic cystitis without hematuria Depression Endometriosis Feeling of incomplete bladder emptying Microscopic hematuria Nocturia OAB (overactive bladder) Postinfective urethral stricture in female Stress incontinence ANOOP (stress urinary incontinence, female) Suprapubic pain Urinary urgency Patient Survey You may receive a survey via text or e-mail asking about your office visit. Please share your experience with us by completing your survey. We appreciate your feedback and thank you for choosing us for your care. Education Materials Urinary Tract Infection, Adult A urinary tract infection (UTI) is an infection of any part of the urinary tract. The urinary tract includes the kidneys, ureters, bladder, and urethra. These organs make, store, and get rid of urine in the body. An upper UTI affects the [...] more likely to develop this condition if: ??? You have a urinary catheter that stays in place. ??? You are not able to control when you urinate or have a bowel movement (incontinence). ??? You are female and you: ? Use a spermicide or diaphragm for control. ? Have low estrogen levels. ? Are . ??? You have certain genes that increase your risk. ??? You are sexually active. ??? You take antibiotic medicines. ??? You have a condition that causes your flow of urine to slow down, such as: ? An enlarged prostate, if you are male. ? Blockage in your urethra. ? A kidney stone. ? A nerve condition that affects your bladder control (neurogenic bladder). ? Not getting enough to drink, or not urinating often. ??? You have certain medical conditions, such as: ? Diabetes. ? A weak disease-fighting system (immunesystem). ? Sickle cell disease. ? Gout. ? Spinal cord injury. What are the signs or symptoms? Symptoms of this condition include: ??? Needing to urinate right away (urgency). ??? Frequent urination. This may include small amounts of urine each time you urinate. ??? Pain or burning with urination. ??? Blood in the urine. ??? Urine that smells bad or unusual. ??? Trouble urinating. ??? Cloudy urine. ??? Vaginal discharge, if you are female. ??? Pain in the abdomen or the lower back. You may also have: ??? Vomiting or a decreased appetite. ??? Confusion. ??? Irritability or tiredness. ??? A fever or chills. ??? Diarrhea. The first symptom in older adults may be confusion. In some cases, they may not have any symptoms until the infection has worsened. How is this diagnosed? This condition is diagnosed based on your medical history and a physical exam. You may also have other tests, including: ??? Urine tests. ??? Blood tests. ??? Tests for STIs (sexually transmitted (more content not included)... Normal [facility] Urology Office/Clinic Noteon 10-05-2024 Urology Office/Clinic Note Urology Office/Clinic Note Chief Complaint 1 yr fu HPI Staff 69 year old female patient here for 1 year follow up. Previous dx: chronic cystitis without hematuria, OAB, postinfective urethral stricture in female, stress incontinence *otc cranberry, d-mannose, probiotics. Patient states that she quit taking the Vesicare over a year ago and the estrace cream, states she tried the estrace cream 2x and get an infection each time she used it. Patient denies any dysuria or gross hematuria. Denies any flank or abdomen pain. Did have one uti last year that PCP treated. History of Present Illness Tests reviewed: reviewed UA I have reviewed the previous health record information and history for this patient from Anjelica Narayanan PA-C I have reviewed and verified the staff HPI to be accurate for this encounter. There have been no associated fever, chills, flank pain, or blood in the urine. Denies any urinary infections since last encounter. Review of Systems PHQ Score Initial Depression Screen Score: 0 SCORE ROS - Provider Constitutional: denies weight loss, denies hot flashes. Eyes: denies eye problems. Gastrointestinal: denies nausea, denies vomiting. Cardiovascular: denies chest pain or angina. Integumentary: no dryness Musculoskeletal: denies musculoskeletal symptoms. ENMT: denies otolaryngeal symptoms. Respiratory: no shortness of breath. Heme/Lymph: denies easy bleeding tendency, denies easy bruising tendency. Psychiatric: no confusion, no anxiety. Genitourinary: See HPI. Physical Exam Vitals & Measurements HR: 75(Peripheral) BP: 127/77 HT: 152 cm HT: 60 in WT: 60.5 kg WT: 133.38 lb BMI: 26.19 General Appearance: alert , no acute distress, well nourished, well developed female. Assessment/Plan 1. Chronic cystitis without hematuria (N30.20: Other chronic cystitis without hematuria) Pt reports 1 UTI last year in September that her primary care treated. Pt states she had the UTI due to Estrace cream, pt states with her brain injury she filled up the whole tube with cream. Pt developed subsequent infections with continued use of Estrace cream. Has stopped cream since and is not interested in restarting. UA today negative for blood or infection. Shares she was told to start probiotics at prior OV with Silvia Narayanan 10/04/23. Recommended restarting cream without the applicator and to apply with her finger. Pt to start with 2x per week. She is to continue her probiotics and D- Mannose. -Restart Estradiol cream, do not use applicator, apply 2x/wk -F/up in 1 year 2. OAB (overactive bladder) (N32.81: Overactive bladder) Pt states she quit taking VESIcare over a year ago. Pt took med for years. Doing fine without the med. 3. Postinfective urethral stricture in female (N35.12: Postinfective urethral stricture, not elsewhere classified, female) Prior PVR 0 cc. No issues with emptying. Strong, steady stream. Denies straining with urination. 4. Stress incontinence (N39.3: Stress incontinence (female) (male)) BBSQ 12 (9) Leaks with lifting and bending. Wearing light pads. Not bothersome enough to warrant tx per pt. Follow-up With When Contact Information JB SANTOS, Jean Jo, URL [address] [place], [place] [id number]- Additional Instructions: 1 year Patient Education Urinary Tract Infection, Adult I, Amaris Talamantes, personally scribed for Dr. Angeles on 10/05/2024 08:57:36. . Documentation recorded by the scribeAmaris, accurately reflects the services(s) I performed and decisions made by me. Authenticated by Dr. Angeles on 10/05/2024 09:01:39. Problem List/Past Medical History Ongoing Chronic cystitis [...] Tab, 0.25 mg= 1 tab(s), Oral, Daily Nature's Bounty Probiotic, Oral, Daily sertraline 100 mg Tab, 100 mg= 1 tab(s), Oral, Daily Vitamin C, Daily Allergies No Known Medication Allergies Social History Alcohol - Denies Alcohol Use, 11/20/2018 Never., 10/05/2024 Substance Abuse - Denies Substance Abuse, 11/20/2018 Never., 10/05/2024 Tobacco - Denies Tobacco Use, 11/20/2018 Never (less than 100 in lifetime) Tobacco Use:. Never Smokeless Tobacco Use:., 10/05/2024 Immunizations Vaccine Date Status influenza virus vaccine, inactivated 02/08/2024 Recorded influenza virus vaccine, inactivated 02/09/2022 Recorded SARS-CoV-2 (COVID-19) mRNA BNT-162b2 vax 05/11/2021 Recorded influenza viru (more content not included)... Normal [facility] Comment on above: Result Comment: Elec tronically Signed By: Jean ANGELES MD\.br\Date and Time Signed: 10/05/24 09:01 EDT\.br\Electronically Co-Signed By: Amaris Tlaamantes\.br\Date and Time Co-Signed: 10/05/24 08:57 EDT Laboratory - Chemistry and C hemistry - challengeon 02-20-2024 Bilirubin Ql (U) Negative [facility] Glucose (U) [Mass/Vol] Negative [facility] Ketones Ql (U) Negative [facility] pH (U) 6.0 [pH] [facility] Specific gravity (U) [Rel density] 1.015 [facility] Urobilinogen (U) [Mass/Vol] 0.2 mg/dL [facility] Laboratory - Specimen inform ationon 02-20-2024 Appearance (U) clear [facility] Color (U) yellow [facility] Laboratory - Urinalysison Leukocyte esterase Test strip Ql (U) Negative [facility] Nitrite Ql (U) Negative [facility] Protein Ql (U) + [facility] No Panel Informationon 02-19 Urine Occult Blood Negative [facility] Laboratory - Chemistry and C hemistry - challengeon 01-30-2024 Bilirubin Ql (U) Negative [facility] Glucose (U) [Mass/Vol] Negative [facility] Ketones Ql (U) Negative [facility] pH (U) 5.0 [pH] [facility] Specific gravity (U) [Rel density] 1.010 [facility] Urobilinogen (U) [Mass/Vol] 0.2 mg/dL [facility] Laboratory - Specimen inform ationon 01-30-2024 Appearance (U) cloudy [facility] Color (U) lightyellow [facility] Laboratory - Urinalysison Leukocyte esterase Test strip Ql (U) ++++ [facility] Nitrite Ql (U) Positive [facility] Protein Ql (U) ++ [facility] No Panel Informationon 01-29 Urine Occult Blood +++ [facility] Laboratory - Chemistry and C hemistry - challengeon 11-23-2023 Bilirubin Ql (U) Negative [facility] Glucose (U) [Mass/Vol] Negative [facility] Ketones Ql (U) Negative [facility] pH (U) 5.0 [pH] [facility] Specific gravity (U) [Rel density] 1.000 [facility] Urobilinogen (U) [Mass/Vol] 0.2 mg/dL [facility] Laboratory - Specimen inform ationon 11-23-2023 Appearance (U) clear [facility] Color (U) lightyellow [facility] Laboratory - Urinalysison Leukocyte esterase Test strip Ql (U) Negative [facility] Nitrite Ql (U) Negative [facility] Protein Ql (U) Negative [facility] No Panel Informationon 11-22 Urine Occult Blood Negative [facility] Laboratory - Chemistry and C hemistry - challengeon 11-14-2023 Bilirubin Ql (U) Negative [facility] Glucose (U) [Mass/Vol] Negative [facility] Ketones Ql (U) Negative [facility] pH (U) 5.0 [pH] [facility] Specific gravity (U) [Rel density] 1.005 [facility] Urobilinogen (U) [Mass/Vol] Negative [facility] Laboratory - Specimen inform ationon 11-14-2023 Appearance (U) cloudy [facility] Color (U) yellow [facility] Laboratory - Urinalysison Leukocyte esterase Test strip Ql (U) +++ [facility] Nitrite Ql (U) Negative [facility] Protein Ql (U) ++ [facility] No Panel Informationon 11-13 Urine Occult Blood +++ [facility] Urinalysis - DIPSTICKon 11-24 Appearance (U) cloudy [employer] Other Bilirubin Ql (U) large [employer] Other Color (U) red [facility] Other Glucose Ql (U) Negative [employer] Other Hemoglobin Ql (U) large [employer] Other Ketones Ql (U) trace [employer] Other Leukocyte esterase Test strip Ql (U) moderate [facility] Other Nitrite Ql (U) Positive [employer] Other pH (U) 5.0 [pH] [facility] Other Protein Ql (U) ++ [employer] Other Specific gravity (U) [Rel density] 1.020 [facility] Other Urobilinogen (U) [Mass/Vol] 0.2 mg/dL [facility] Other Urinalysis - DIPSTICK [facility] Other CBC AUTO DIFFon 06-21-2022 BASO # 0.0 103/ul Normal 0.0-0.1 [facility] Comment on above: Performed By: #### D ATCBC #### [facility] [address] [place] [address] Dr. Jessica Marie Basophils/100 WBC (Bld) 0.3 % Normal 0.2-2.0 [facility] Comment on above: Performed By: #### D ATCBC #### [facility] [address] [place] [address] Dr. Jessica Marie EO # 0.1 103/ul Normal 0.0-0.7 [facility] Comment on above: Performed By: #### D ATCBC #### [facility] [address] [place] [address] Dr. Jessica Marie Eosinophils/100 WBC (Bld) 1.9 % Normal 0.9-7.0 [facility] Comment on above: Performed By: #### D ATCBC #### [facility] [address] [place] [address] Dr. Jessica Marie Erythrocyte distribution width (RBC) [Ratio] 13.5 % Normal 11.0-15.0 [facility] Comment on above: Performed By: #### D ATCBC #### [facility] [address] [place] [address] Dr. Jessica Marie Hematocrit (Bld) [Volume fraction] 38.1 % Normal 36.0-48.0 [facility] Comment on above: Performed By: #### D ATCBC #### [facility] [address] [place] [address] Dr. Jessica Marie Hemoglobin (Bld) [Mass/Vol] 12.7 g/dL Normal 12.0-16.0 [facility] Comment on above: Performed By: #### D ATCBC #### [facility] [address] [place] [address] Dr. Jessica Marie IG # 0.02 10e3/ul Normal 0.00-0.03 [facility] Comment on above: Performed By: #### D ATCBC #### [facility] [address] [address] [address] Jessica Marie IG % 0.3 % Normal 0.0-0.5 [facility] Comment on above: Performed By: #### D ATCBC #### [facility] [address] [address] [address] Jessica Marie LYMPH # 2.3 103/ul Normal 1.2-3.8 [facility] Comment on above: Performed By: #### D ATCBC #### [facility] [address] [place] [address] Dr. Jessica Marie Lymphocytes/100 WBC (Bld) 39.4 % Normal 20.5-60.0 [facility] Comment on above: Performed By: #### D ATCBC #### [facility] [address] [place] [address] Dr. Jessica Marie MCH (RBC) [Entitic mass] 31.2 pg Normal 26.7-34.0 [facility] Comment on above: Performed By: #### D ATCBC #### [facility] [address] [place] [address] Dr. Jessica Marie MCHC (RBC) [Mass/Vol] 33.3 g/dL Normal 29.9-35.2 [facility] Comment on above: Performed By: #### D ATCBC #### [facility] [address] [place] [address] Dr. Jessica Marie MCV (RBC) [Entitic vol] 93.6 fL Normal 81.0-99.0 [facility] Comment on above: Performed By: #### D ATCBC #### [facility] [address] [place] [address] Dr. Jessica Marie MONO # 0.4 103/ul Normal 0.3-0.8 [facility] Comment on above: Performed By: #### D ATCBC #### [facility] [address] [place] [address] Dr. Jessica Marie Monocytes/100 WBC (Bld) 6.9 % Normal 1.7-12.0 [facility] Comment on above: Performed By: #### D ATCBC #### [facility] [address] [address] [address] Jessica Marie NEUT # 3.0 103/ul Normal 1.4-6.5 [facility] Comment on above: Performed By: #### D ATCBC #### [facility] [address] [address] [address] Jessica Marie Neutrophils/100 WBC (Bld) 51.2 % Normal 43.0-75.0 [facility] Comment on above: Performed By: #### D ATCBC #### [facility] [address] [address] [address] Jessica Marie Platelet mean volume (Bld) [Entitic vol] 9.9 fL Normal 9.5-13.5 [facility] Comment on above: Performed By: #### D ATCBC #### [facility] [address] [address] [address] eJssica Marie PLT 194 103/ul Normal 150-450 [facility] Comment on above: Performed By: #### D ATCBC #### [facility] [address] [address] [address] Jessica Marie RBC 4.07 106/ul Critically low 4.20-5.[address] [facility] Comment on above: Performed By: #### D ATCBC #### [facility] [address] [address] [address] Jessica Marie WBC 5.9 103/ul Normal 4.0-11.0 [facility] Comment on above: Performed By: #### D ATCBC #### [facility] [address] [address] [address] Jessica Marie JIM- BMP WITH LIPIDon 2022 Anion gap [Moles/Vol] 11.1 mmol/L Normal [facility] Comment on above: Performed By: #### D ATBMP #### [facility] [address] [address] [address] Jessica Marie Calcium [Mass/Vol] 9.2 mg/dL Normal 8.5-10.1 [facility] Comment on above: Performed By: #### D ATBMP #### [facility] [address] [address] [address] Jessica Marie Chloride [Moles/Vol] 105 mmol/L Normal 98-107 [facility] Comment on above: Performed By: #### D ATBMP #### [facility] [address] [address] [address] Jessica Marie Cholesterol [Mass/Vol] 216 mg/dL Critically high <=200 [facility] Comment on above: Performed By: #### D ATBMP #### [facility] [address] [address] [address] Jessica Marie Cholesterol in HDL [Mass/Vol] 62 mg/dL Critically high 40-60 [facility] Comment on above: Performed By: #### D ATBMP #### [facility] [address] [address] [address] Jessica Marie Cholesterol in LDL [Mass/Vol] 145.6 mg/dL Normal [facility] Comment on above: Performed By: #### D ATBMP #### [facility] [address] [address] [address] Jessica Marie CO2 [Moles/Vol] 28.8 mmol/L Normal 21.0-32.0 [facility] Comment on above: Performed By: #### D ATBMP #### [facility] [address] [address] [address] Jessica Marie Creatinine [Mass/Vol] 0.74 mg/dL Normal 0.55-1.02 [facility] Comment on above: Performed By: #### D ATBMP #### [facility] [address] [address] [address] Jessica Marie EGFR-AF ETHIOPIAN >60 Normal >=60 [facility] Comment on above: Performed By: #### D ATBMP #### [facility] [address] [address] [address] Jessica Marie EGFR-NON AF ETHIOPIAN >60 Normal >=60 [facility] Comment on above: Performed By: #### D ATBMP #### [facility] [address] [address] [address] Jessica Marie Glucose [Mass/Vol] 111 mg/dL Critically high 74-106 [facility] Comment on above: Performed By: #### D ATBMP #### [facility] [address] [address] [address] Jessica Marie HDL NORMAL > or = 60 mg/dl - LOW CARDIOVASCULAR RISK <40 mg/dl - HIGH CARDIOVASCULAR RISK Normal [facility] Comment on above: Performed By: #### D ATBMP #### [facility] [address] [address] [address] Jessica Marie LDL CALC NORMAL SEE BELOW Normal [facility] Comment on above: Result Comment: <100 mg/dl OPTIMAL 100 - 129 mg/dl NEAR OR ABOVE OPTIMAL 130 - 159 mg/dl BORDERLINE HIGH 160 - 189 mg/dl HIGH >190 mg/dl VERY HIGH Performed By: #### D ATBMP #### [facility] [address] [address] [address] Jessica Marie Potassium [Moles/Vol] 4.9 mmol/L Normal 3.5-5.1 [facility] Comment on above: Performed By: #### D ATBMP #### [facility] [address] [address] [address] Jessica Marie Sodium [Moles/Vol] 140 mmol/L Normal 136-145 [facility] Comment on above: Performed By: #### D ATBMP #### [facility] [address] [address] [address] Jessica Marie Triglyceride [Mass/Vol] 42 mg/dL Normal <=150 [facility] Comment on above: Performed By: #### D ATBMP #### [facility] [address] [address] [address] Jessica Marie Urea nitrogen [Mass/Vol] 15.0 mg/dL Normal 7.0-18.0 [facility] Comment on above: Performed By: #### D ATBMP #### [facility] [address] [address] [address] Jessica Marie Urea nitrogen/Creatinine [Mass ratio] 20.3 mg/mg Normal [facility] Comment on above: Performed By: #### D ATBMP #### [facility] [address] [address] [address] Jessica Marie VLDL CALC 8.4 mg/dL Normal [facility] Comment on above: Performed By: #### D ATBMP #### [facility] [id number] Jessica Marie MG MAMM SCREEN 3D PRASHANTH CADon 06-21-2022 MG MAMM SCREEN 3D PRASHANTH CAD Patient: DONNA COLLAZO Exam Date: 06/21/2022 : 1955 Gender:F Ordering : DR KEN LONDON D.O. Admission #: [id number] Family : Order #: [id number] CLICK HERE TO VIEW EXAM RADIOLOGY REPORT [...] lung cancer at age 66. LOCATION: [facility] BREAST COMPOSITION: Scattered areas fibroglandular density. [...] MD on 06/21/2022 at 10:55 Normal [facility] MG MAMM SCREEN 3D PRASHANTH CAD [facility] Other Urinalysis - DIPSTICKon 05-26 Appearance (U) clear [employer] Other Bilirubin Ql (U) hegative [employer] Other Color (U) light yellow [facility] Other Glucose Ql (U) Negative [employer] Other Hemoglobin Ql (U) Negative [employer] Other Ketones Ql (U) Negative [employer] Other Leukocyte esterase Test strip Ql (U) trace [employer] Other Nitrite Ql (U) Negative [employer] Other pH (U) 5.0 [pH] [facility] Other Protein Ql (U) off chart [employer] Other Specific gravity (U) [Rel density] 1.005 [employer] Other Urobilinogen (U) [Mass/Vol] 0.2 mg/dL [facility] Other Urinalysis - DIPSTICK [employer] Other COVID/FLU RT-PCRon 3 SARS-CoV-2 (COVID-19) RNA SRAVANTHI+probe Ql (Unsp spec) Negative [facility] Other COVID/FLU RT-PCR Negative [employer] Other VAGINITIS/VAGINOSIS DNA PROB Familia 08-05-2021 Alexandra species Negative Normal Negative [facility] Comment on above: Performed By: #### V AGINT #### [facility] [address] [address] [address] Jessica Marie Gardnerella vaginalis Positive Abnormal Negative [facility] Comment on above: Performed By: #### V AGINT #### [facility] [address] [address] [address] Jessica Marie Trichomonas vaginalis Negative Normal Negative [facility] Comment on above: Performed By: #### V AGINT #### [facility] [address] [address] [address] Jessica Wilhelm 12-26-2018 CNCAROLANN Office Visit (NEALTC) DONNA COLLAZO ([id number]) 1955 F Date Time Provider Department 12/26/18 [...] has never been seen in neurology in [facility] or in [facility]. The patient was seen by Dr. Kel Kerr on 03/15/14 by Neurosurgery for a fall at work with left hip pain in its wake. The patient has never had neuroimaging of in [facility] or in [facility]. The patient has never undergone EMG in [facility] or in [facility]. The patient has never undergone EEG in [facility] or in [facility]. With that preamble, Chief Complaint: Donna Collazo is a 63 year old female who presents with head injury. 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 Afterwards, she returned to [facility]. She was told if she was no [...] who took her to the ED. At [facility], she underwent CT head, and was [...] file Gets together: Not on file Attends yazidi service: Not on file Active member of [...] and symmetric without bruits. Neurologic: Cranial Nerves: Corunna-Hallpike at 11:00 am finds no nystagmus with [...] normal. There were no involuntary movements. Coordination: Oovgfc-qisd-tapqsq was normal. Finger and toe wiggling rapid [...] of October. Post-concussive symptoms usually clear over bxfcz-rt-lohrmo, but here the situation is murky because she has hit her head so many times. In my experience, post-concussive headaches sometimes linger longer than the other post-concussive symptoms. For the past month, they have been adequately treated symptomatically, [id number] . It is not my specialty, but [...] Status:Closed by KRISTA RICHEY on 12/26/18 Normal [facility] PROGRESSon 12-26-2018 PROGRESS HNO ID: [id number] Author: Nell Thorne MA Service: ? Author [...] spine; difficulty breathing; fever or chills. Normal [facility] PROGRESSon 12-24-2018 PROGRESS HNO ID: [id number] Author: Krista Richey Service: ? Author Type: Physician Type: Progress Notes Filed: 01/28/2019 8:45 PM Note Text: Chart reviewed in advance of the patient's appointment. Parenthetic [comments] mine. The schedule shows the patient presents for head injury. The patient has never been seen in neurology in [facility] or in [facility]. The patient was seen by Dr. Kel Kerr on 03/15/14 by Neurosurgery for a fall at work with left hip pain in its wake. The patient has never had neuroimaging of in [facility] or in [facility]. The patient has never undergone EMG in [facility] or in [facility]. The patient has never undergone EEG in [facility] or in [facility]. With that preamble, Chief Complaint: Donna Shock is a 63 year old female who presents with head injury. 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 Afterwards, she returned to [facility]. She was told if she was no [...] who took her to the ED. At [facility], she underwent CT head, and was [...] file Gets together: Not on file Attends yazidi service: Not on file Active member of [...] and symmetric without bruits. Neurologic: Cranial Nerves: Corunna-Hallpike at 11:00 am finds no nystagmus with [...] normal. There were no involuntary movements. Coordination: Jpmhot-dzow-cvuyqd was normal. Finger and toe wiggling rapid [...] of October. Post-concussive symptoms usually clear over [id number]-[id number], but here the situation is murky because she has hit her head so many times. In my experience, post-concussive headaches sometimes linger longer than the other post-concussive symptoms. For the past month, they have been adequately treated symptomatically, clufiaor-ao-ejpfaict . It is not my specialty, but [...] 11/10/16 was unremarkable. 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 DIGITAL SCREENING SELF R EFERRALon 12-23-2016 [facility] DIGITAL SCREENING SELF REFERRAL ADDENDUM #1 Comparison addendum:Previous digital mammograms of both breasts dated 09/03/2014 and 08/26/2015 have been obtained from the [facility] in [place], [place], for comparison with the current study [...] - In BasketEdited Result - FINAL Normal [facility] Vital Signs Date Time Vital Sign Value Performing Clinician Facility 10-23-2024 11:37-0400 Body weight 61.33 kg Bell RUBI Work Phone: [facility] 10-23-2024 11:37-0400 Diastolic blood pressure 80 mm[Hg] Bell RUBI Work Phone: [facility] 10-23-2024 11:37-0400 Systolic blood pressure 120 mm[Hg] Bell RUBI Work Phone: [facility] 08-10-2024 09:10-0400 Body height 152.4 cm [facility] 08-10-2024 09:10-0400 Body mass index (BMI) [Ratio] 26.4 kg/m2 [facility] 08-10-2024 09:10-0400 Body weight 61.23 kg [facility] 08-10-2024 09:10-0400 Diastolic blood pressure 74 mm[Hg] [facility] 08-10-2024 09:10-0400 Heart rate 73 /min [facility] 08-10-2024 09:10-0400 Respiratory rate 12 /min [facility] 08-10-2024 09:10-0400 Systolic blood pressure 114 mm[Hg] [facility] 02-08-2024 08:59-0400 Body height 152.4 cm [facility] 02-08-2024 08:59-0400 Body mass index (BMI) [Ratio] 26.4 kg/m2 [facility] 02-08-2024 08:59-0400 Body weight 61.23 kg [facility] 02-08-2024 08:59-0400 Diastolic blood pressure 73 mm[Hg] [facility] 02-08-2024 08:59-0400 Heart rate 79 /min [facility] 02-08-2024 08:59-0400 Respiratory rate 12 /min [facility] 02-08-2024 08:59-0400 Systolic blood pressure 116 mm[Hg] [facility] 01-06-2024 14:50-0400 Body height 152.4 cm [facility] 01-06-2024 14:50-0400 Body mass index (BMI) [Ratio] 27.4 kg/m2 [facility] 01-06-2024 14:50-0400 Body temperature 97.8 [degF] [facility] 01-06-2024 14:50-0400 Body weight 63.72 kg [facility] 01-06-2024 14:50-0400 Diastolic blood pressure 72 mm[Hg] [facility] 01-06-2024 14:50-0400 Heart rate 71 /min [facility] 01-06-2024 14:50-0400 Respiratory rate 18 /min [facility] 01-06-2024 14:50-0400 SaO2% (BldA) [Mass fraction] 98 % [facility] 01-06-2024 14:50-0400 Systolic blood pressure 131 mm[Hg] [facility] 10-04-2023 09:10-0400 Blood Pressure Location ANJELICA NARAYANAN [facility] 10-04-2023 09:10-0400 Body temperature 98.6 [degF] ANJELICA NARAYANAN [facility] 10-04-2023 09:10-0400 Diastolic blood pressure 77 mm[Hg] ANJELICA NARAYANAN [facility] 10-04-2023 09:10-0400 Heart rate 68 /min ANJELICA NARAYANAN [facility] 10-04-2023 09:10-0400 Respiratory rate 16 /min ANJELICA NARAYANAN [facility] 10-04-2023 09:10-0400 Systolic blood pressure 124 mm[Hg] ANJELICA NARAYANAN [facility] 09-21-2023 09:32-0400 Body height 152.4 cm [facility] 09-21-2023 09:32-0400 Body mass index (BMI) [Ratio] 26.4 kg/m2 [facility] 09-21-2023 09:32-0400 Body weight 61.23 kg [facility] 09-21-2023 09:32-0400 Diastolic blood pressure 76 mm[Hg] [facility] 09-21-2023 09:32-0400 Heart rate 75 /min [facility] 09-21-2023 09:32-0400 Respiratory rate 12 /min [facility] 09-21-2023 09:32-0400 Systolic blood pressure 120 mm[Hg] [facility] 08-09-2023 09:45-0400 Body height 152.4 cm [facility] 08-09-2023 09:45-0400 Body mass index (BMI) [Ratio] 26.4 kg/m2 [facility] 08-09-2023 09:45-0400 Body weight 61.23 kg [facility] 08-09-2023 09:45-0400 Diastolic blood pressure 73 mm[Hg] [facility] 08-09-2023 09:45-0400 Heart rate 79 /min [facility] 08-09-2023 09:45-0400 Respiratory rate 12 /min [facility] 08-09-2023 09:45-0400 Systolic blood pressure 126 mm[Hg] [facility] 12-10-2022 13:45-0400 Body height 152.4 cm Ken Ball Other [facility] Other 12-10-2022 13:45-0400 Body mass index (BMI) [Ratio] 25.58 kg/m2 Ken Ball Other [facility] Other 12-10-2022 13:45-0400 Body temperature 97.5 [degF] Ken Ball Other [facility] Other 12-10-2022 13:45-0400 Body weight 59.42 kg Ken Ball Other [facility] Other 12-10-2022 13:45-0400 Diastolic blood pressure 85 mm[Hg] Ken Ball Other [facility] Other 12-10-2022 13:45-0400 Systolic blood pressure 138 mm[Hg] Ken Ball Other [facility] Other 12-02-2022 17:20-0400 Body height 152.4 cm Jillian Thapa Other [facility] Other 12-02-2022 17:20-0400 Body mass index (BMI) [Ratio] 26.95 kg/m2 Jillian Thapa Other [facility] Other 12-02-2022 17:20-0400 Body temperature 97.2 [degF] Jillian Thapa Other [facility] Other 12-02-2022 17:20-0400 Body weight 62.6 kg Jillian Thapa Other [facility] Other 12-02-2022 17:20-0400 Diastolic blood pressure 62 mm[Hg] Jillian Thapa Other [facility] Other 12-02-2022 17:20-0400 Respiratory rate 18 /min Jillian Thapa Other [facility] Other 12-02-2022 17:20-0400 SaO2% (BldA) [Mass fraction] 99 % Jillian Alanis Other [facility] Other 12-02-2022 17:20-0400 Systolic blood pressure 131 mm[Hg] Jillian Thapa Other [place] [employer] Other 09-28-2022 12:03-0400 Blood Pressure Location ANJELICA NARAYANAN [facility] 09-28-2022 12:03-0400 Diastolic blood pressure 74 mm[Hg] ANJELICA NARAYANAN [facility] 09-28-2022 12:03-0400 Heart rate 70 /min ANJELICA NARAYANAN [facility] 09-28-2022 12:03-0400 Systolic blood pressure 125 mm[Hg] ANJELICA NARAYANAN [facility] 06-18-2022 09:00-0500 Body height 152.4 cm Ken Ball Other [facility] Other 06-18-2022 09:00-0500 Body mass index (BMI) [Ratio] 25.78 kg/m2 Ken Ball Other [facility] Other 06-18-2022 09:00-0500 Body weight 59.88 kg Ken Ball Other [facility] Other 06-18-2022 09:00-0500 Diastolic blood pressure 66 mm[Hg] Ken Ball Other [facility] Other 06-18-2022 09:00-0500 Respiratory rate 12 /min Ken London Other [facility] Other 06-18-2022 09:00-0500 Systolic blood pressure 102 mm[Hg] Ken London Other [facility] Other 05-31-2022 10:45-0500 Body height 152.4 cm Indiana Holm Other [facility] Other 05-31-2022 10:45-0500 Body mass index (BMI) [Ratio] 27.53 kg/m2 Indiana Holm Other [facility] Other 05-31-2022 10:45-0500 Body temperature 97.8 [degF] Indiana Holm Other [facility] Other 05-31-2022 10:45-0500 Body weight 63.96 kg Indiana Holm Other [facility] Other 05-31-2022 10:45-0500 Respiratory rate 18 /min Indiana Holm Other [facility] Other 05-31-2022 10:45-0500 SaO2% (BldA) [Mass fraction] 97 % Indiana Holm Other [facility] Other Encounters Encounter Date Encounter Type Care Provider Facility Start: 10-11-2025 ambulatory Jean Garcia ty:RASHAWN Weiss Start: 10-23-2024 End: 10-23-2024 Bamboo flowsheet Bell RUBI Work Phone: [facility] Start: 10-23-2024 End: 10-24-2024 Bamboo flowsheet Bell RUBI Work Phone: [facility] Start: 10-23-2024 End: 10-24-2024 External Result Encounter Bell RUBI Work Phone: [facility] External Department Unsolicited Start: 10-23-2024 End: 10-23-2024 Office outpatient visit 15 minutes Bell RUBI Work Phone: [facility] Comment on above: Vaginal discharge; Yeast infection; BV (bacterial vaginosis); Urinary tract infection without hematuria, site unspecified Start: 10-23-2024 End: 10-23-2024 ambulatory BELL COVARRUBIAS Not Available Start: 10-05-2024 End: 10-05-2024 ambulatory Jean ANGELES Facility:[facility] Start: 10-05-2024 End: 10-05-2024 Patient encounter procedure Jean Deysi ANGELES [facility] Start: 08-10-2024 End: 08-10-2024 ambulatory [facility] Work Phone: Start: 08-10-2024 End: 08-10-2024 Patient encounter procedure [facility] Work Phone: Start: 05-14-2024 End: 05-14-2024 ambulatory [facility] Work Phone: Start: 05-14-2024 End: 05-14-2024 Patient encounter procedure [facility] Work Phone: Start: 02-22-2024 Non-patient / Non-visit [facility] Work Phone: Start: 02-20-2024 End: 02-20-2024 ambulatory [facility] Work Phone: Start: 02-20-2024 End: 02-20-2024 Patient encounter procedure [facility] Work Phone: Start: 02-08-2024 End: 02-08-2024 ambulatory [facility] Work Phone: Start: 02-08-2024 End: 02-08-2024 Patient encounter procedure [facility] Work Phone: Start: 01-30-2024 End: 01-30-2024 ambulatory [facility] Work Phone: Start: 01-30-2024 End: 01-30-2024 Patient encounter procedure [facility] Work Phone: Start: 01-06-2024 End: 01-06-2024 ambulatory [facility] Work Phone: Start: 01-06-2024 End: 01-06-2024 Patient encounter procedure [facility] Leonid Work Phone: Start: 11-23-2023 End: 11-23-2023 ambulatory [facility] Work Phone: Start: 11-23-2023 End: 11-23-2023 Patient encounter procedure [facility] Work Phone: Start: 11-14-2023 End: 11-14-2023 ambulatory [facility] Work Phone: Start: 11-14-2023 End: 11-14-2023 Patient encounter procedure [facility] Work Phone: Start: 10-04-2023 End: 10-04-2023 Patient encounter procedure ANJELICA NARAYANAN [facility] Start: 09-21-2023 End: 09-21-2023 ambulatory [facility] Work Phone: Start: 09-21-2023 End: 09-21-2023 Patient encounter procedure [facility] Work Phone: Start: 08-09-2023 End: 08-09-2023 ambulatory [facility] Work Phone: Start: 08-09-2023 End: 08-09-2023 Patient encounter procedure [facility] Work Phone: Start: 07-15-2023 Non-patient / Non-visit [facility] Work Phone: Start: 12-17-2022 End: 12-17-2022 ambulatory Ken London Other [facility] Other Start: 12-17-2022 Telephone encounter Ken DE LA O [facility] Start: 12-13-2022 End: 12-13-2022 ambulatory Ken London Other [facility] Other Start: 12-13-2022 Nursing evaluation o f patient and report Ken London [facility] Start: 12-13-2022 Telephone encounter Ken DE LA O [facility] Start: 12-10-2022 End: 12-10-2022 ambulatory Ken London Other [facility] Other Start: 12-10-2022 Office outpatient vi sit 15 minutes Ken London [facility] Start: 12-02-2022 End: 12-02-2022 ambulatory Jillian Thapa Other [facility] Other Start: 12-02-2022 Office outpatient vi sit 15 minutes Jillian Thapa [facility] Start: 09-28-2022 End: 09-28-2022 Patient encounter procedure ANJELICA NARAYANAN [facility] Start: 06-21-2022 End: 06-22-[address] KEN LONDON Facility:[facility] Start: 06-18-2022 End: 06-18-2022 ambulatory Ken London Other [facility] Other Start: 06-18-2022 Initial preventive exam Ken tijerina [facility] Start: 06-18-2022 Patient encounter procedure Ken London [facility] Start: 06-10-2022 End: 06-10-2022 ambulatory Meli Martin Other [facility] Other Start: 06-10-2022 Nursing evaluation o f patient and report Meli Martin [facility] Start: 05-31-2022 End: 05-31-2022 ambulatory Indiana Holm Other [facility] Other Start: 05-31-2022 Office outpatient vi sit 15 minutes Indiana Holm [facility] Start: 04-28-2022 End: 04-28-2022 ambulatory Ken London Other [facility] Other Start: 04-28-2022 Telephone encounter Ken London No rt [employer] Start: 08-17-2021 Gynecological examin ation normal Jillian Thapa Other [facility] Other Start: 08-04-2021 End: 08-04-2021 ambulatory SIDDHARTHA KIMBALL Facility: Start: 06-15-2021 Adult health examination Precious Thapa Other [facility] Other Start: 03-22-2017 End: 03-26-2017 Ambulatory SILVESTRE [facility] Start: 03-22-2017 Office outpatient ne w 30 minutes Silvestre Juan Ramon Clarendon Work Phone: [facility] D[facility]at[facility] Start: 02-02-2017 End: 02-02-2017 Emergency department patient visit KEN LONDON [facility] Start: 12-21-2016 End: 12-22-2016 Ambulatory [facility]ON [facility] Procedures Date Procedure Procedure Detail Performing Clinician Start: 10-23-2024 URINARY TRACT INFECTION (HTRX) Bell RUBI Work Phone: Start: 06-22-2023 Mammography Bell RUBI Work Phone: Start: 05-09-2018 Screening mammography Jillian Thapa Other Start: 02-02-2017 Ct head/brain w/o contrast material PAO LONDON Start: 12-21-2016 Screeningmammographydigital KEN Tijerina Start: 2013 Cystourethroscopy with dilation of urethral stricture ANJELICA NARAYANAN Comment on above: 03/01/2013, 04/06/2012, 07/16/2011, 2009, 02/22/2006 Start: 03-08-2006 Urodynamic studies ANJELICA NARAYANAN Cataract care ANJELICA NARAYANAN Cholecystectomy ANJELICA NIX Depression screening Jillian Thapa Other Hysterectomy ANJELICA NARAYANAN Screening for malign ant neoplasm of breast Jillian Thapa Other Screening for malign ant neoplasm of colon Jillian Thapa Other Plan of Treatment Date Care Activity Detail Author Start: 06-27-2025 Screening for malign ant neoplasm of colon [facility] Start: 12-24-2024 Influenza vaccination Influenza Vacc ine (#1) [facility] Start: 10-23-2024 End: 10-23-2024 Patient encounter procedure 10/23/2024 11:10 AM EDT Office Visit [facility] [address] [place] [address] Bell Covarrubias PA [address] [place] [address] Arrived [facility] Comment on above: Arrived Start: 06-22-2024 Screening for malign ant neoplasm of breast Mammogram [facility] Start: 12-24-2016 Influenza vaccination SEQUENTI AL INFLUENZA VACCINE (#1) [facility] Work Phone: Start: 08-07-2007 Pneumococcal Vaccine : 65+ Years (1 of 1 - PCV) Pneumococcal Vaccine: 65+ Years (1 of 1 - PCV) [facility] Start: 1955 Screening for malign ant neoplasm of colon [facility] Start: 1955 HEPATITIS C SCREENING HEPATITIS C SC REENING [facility] Work Phone: Start: 1955 Screening colonoscopy COLONOSCOPY O [facility] Work Phone: Start: 1955 Screening for malign ant neoplasm of cervix PAP SMEAR [facility] Work Phone: Start: 1955 Tetanus vaccination TETANUS EVERY 10 YR [facility] Work Phone: Bacteria identified in Urine by Culture Urine culture Microbiology Routine Urinary tract infection without hematuria, site unspecified Ordered: 10/23/2024 [facility] Work Phone: Comment on above: Ordered: 10/23/2024 Patient Education Plantar Fascii tis Exercises [facility] Work Phone: [facility] Immunizations Immunization Date Immunization Notes Care Provider Naomie steel 02-08-2024 influenza virus vaccine, unspecified formulation Jeansindy ANGELES [facility] 02-08-2024 influenza, high dose seasonal, preservative-free [facility] 02-09-2022 influenza virus vaccine, unspecified formulation ANJELICA NARAYANAN [facility] 02-09-2022 influenza, injectabl e, quadrivalent, preservative free Indiana Holm Other [facility] 05-11-2021 COVID-19 Vaccine Pfi zer - Documentation Purposes Only Indiana Holm Other [facility] 02-07-2021 influenza virus vaccine, unspecified formulation ANJELICA NARAYANAN [facility] 07-29-2020 COVID-19 Vaccine Pfi zer - Documentation Purposes Only Indiana Holm Other [facility] 07-09-2020 COVID-19 Vaccine Pfi zer - Documentation Purposes Only Indiana Holm Other [facility] 05-04-2019 influenza virus vaccine, split virus (incl. purified surface antigen) Jillian Beckmanley Other [facility] Other 05-04-2019 influenza virus vaccine, unspecified formulation [facility] Payers Date Payer Category Payer Private Health Insurance [id number] 2021 Medicare [id number] 2021 Medicare [id number] 2020 Unknown [id number] 2016 Unknown [id number] 2016 Unknown [id number] 2. [id number] 1959 Self-pay [id number] 1959 Unknown [id number] 1957 Unknown [id number] [id number] 1957 Unknown [id number] 2.16.84 [id number] 1957 Unknown [id number] [id number] 1957 Unknown [id number] [id number] 1957 Unknown [id number] [id number] Unknown [id number] [id number] Unknown [facility] [id number] Social History Date Type Detail Facility Start: 03-22-2017 End: 10-05-2024 Tobacco smoking status NHIS Never smoker [facility] Start: 1955 Sex Assigned At Not on file [facility] [employer] Work Phone: Sex Assigned At [facility] Start: 1955 Sex Assigned At Female F [facility] Start: 2009 End: 05-14-2024 Sex Female (finding) [facility] Tobacco smoking status Never [facility] Sexual Orientation [facility] Tobacco smoking stat [facility] Tobacco smoking consumption unknown [facility] Functional Status Date Assessment Result Facility 10-04-2023 Functional Status N/A [facility] 09-28-2022 Functional Status N/A [facility] Clinical Notes 05-31-2022 to 10-23-2024 GREYSON Lowry - 10/23/2024 11:10 AM EDT Note Date & Type Note Facility 10-23-2024 History of Present illness Narrative Reason for Appointment: Patient ID: Donna Collazo is a 69 y.o. female who presents for green discharge Patient presents today for Acute Visit. MEDICATIONS Current Outpatient Medications Medication Instructions ALPRAZolam (XANAX) 0.25 mg, Oral, Daily PRN cephalexin (KEFLEX) 500 mg, Oral, 3 times daily fluconazole (DIFLUCAN) 150 mg, Oral, Once, This is a 1 time dose, take single tablet by mouth. metroNIDAZOLE (Nuvessa) 1.3 % gel 1 Application, Vaginal, Once sertraline (ZOLOFT) 100 mg, Oral, Daily RT solifenacin (VESICARE) 5 mg, Oral, Daily, Swallow tablet whole; do not crush, chew, or split. ALLERGIES No Known Allergies PROBLEMS Active Ambulatory Problems Diagnosis Date Noted No Active Ambulatory Problems Resolved Ambulatory Problems Diagnosis Date Noted No Resolved Ambulatory Problems No Additional Past Medical History HISTORY PAST MEDICAL HISTORY SOCIAL HISTORY History reviewed. No pertinent past medical history. Social History Tobacco Use Smoking status: Not on file Smokeless tobacco: Not on file Substance Use Topics Alcohol use: Not on file Drug use: Not on file FAMILY HISTORY No family history on file. SURGICAL HISTORY Past Surgical History: Procedure Laterality Date HYSTERECTOMY REVIEW OF SYSTEMS Review of Systems: Review of Systems Constitutional: Negative. HENT: Negative. Eyes: Negative. Respiratory: Negative. Cardiovascular: Negative. Gastrointestinal: Negative. Genitourinary: Negative. Musculoskeletal: Negative. Skin: Negative. Neurological: Negative. All other systems reviewed and are negative. Hematological: Negative. Endocrine: Negative. Allergic/Immunologic: Negative. OBJECTIVE Objective: Physical Exam Constitutional: Appearance: Normal appearance. She is normal weight. HENT: Head: Normocephalic. Cardiovascular: Rate and Rhythm: Normal rate. Pulses: Normal pulses. Pulmonary: Effort: Pulmonary effort is normal. Breath sounds: Normal breath sounds. Abdominal: Palpations: Abdomen is soft. Musculoskeletal: General: Normal range of motion. Neurological: General: No focal deficit present. Mental Status: She is alert and oriented to person, place, and time. Psychiatric: Mood and Affect: Mood normal. Behavior: Behavior normal. Thought Content: Thought content normal. Judgment: Judgment normal. Vitals and nursing note reviewed. Vitals: There is no height or weight on file to calculate BMI. BP: 120/80 No LMP recorded. Patient has had a hysterectomy. ASSESSMENT & PLAN ICD-10-CM 1. Vaginal discharge N89.8 2. Yeast infection B37.9 fluconazole (Diflucan) 150 MG tablet 3. BV (bacterial vaginosis) N76.0 metroNIDAZOLE (Nuvessa) 1.3 % gel B96.89 4. Urinary tract infection without hematuria, site unspecified N39.0 cephalexin (Keflex) 500 MG capsule Urine culture Patient presents for vaginal discharge after trying estrace per urology. Patient anxious and concerned for uti, we will send ua for culture and prescribe nuvessa, diflucan and keflex. I explained uses of medication to patient and wrote down instructions for her. She will follow up if symptoms do not improve Documented by GREYSON Lowry on behalf of: GREYSON Lowry documented in this encounter [facility] 10-05-2024 Hospital Discharge instructions Patient Education 10/05/2024 08:57:17 Urinary Tract Infection, Adult Urinary Tract Infection, Adult A urinary tract infection (UTI) is an infection of any part of the urinary tract. The urinary tract includes the kidneys, ureters, bladder, and urethra. These organs make, store, and get rid of urine in the body. An upper UTI affects the [...] Treatment for this condition includes: Antibiotic medicine. Movb-tno-capzqdm medicines to treat discomfort. Drinking enough water to stay hydrated. If you have frequent infections or have other conditions such as a kidney stone, you may need to see a health care provider who specializes in the urinary tract (urologist). In rare cases, urinary tract infections can cause sepsis. Sepsis is a life-threatening condition that occurs when the body responds to an infection. Sepsis is treated in the hospital with IV antibiotics, fluids, and other medicines. Follow these instructions at home: Medicines Take komh-ulq-pfzxnlu and prescription medicines only as told by your health care provider. If you were prescribed an antibiotic medicine, take it as told by your health care provider. Do not stop using the antibiotic even if you start [...] your health care provider. Do not stop using the antibiotic even if you start to feel better. Keep all follow-up visits. This is important. This information is not intended to replace advice given to you by your health care provider. Make sure you discuss any questions you have with your health care provider. Document Revised: 11/16/2020 Document Reviewed: 11/21/2020 [employer] Patient Education 2023 [employer]. Follow Up Care 10/04/2023 09:31:11 With:JB SANTOS, KAIT Rapp Address: [address] [place] [address] [place] [address]- When: Unknown [facility] Abhishek 10-05-2024 Note Patient Education Obstetrics and Gynecology Urinary Tract Infection, Adult A urinary tract infection (UTI) is an infection of any part of the urinary tract. The urinary tract includes the kidneys, ureters, bladder, and urethra. These organs make, store, and get rid of urine in the body. An upper UTI affects the [...] more likely to develop this condition if: ??? You have a urinary catheter that stays in place. ??? You are not able to control when you urinate or have a bowel movement (incontinence). ??? You are female and you: ? Use a spermicide or diaphragm for control. ? Have low estrogen levels. ? Are . ??? You have certain genes that increase your risk. ??? You are sexually active. ??? You take antibiotic medicines. ??? You have a condition that causes your flow of urine to slow down, such as: ? An enlarged prostate, if you are male. ? Blockage in your urethra. ? A kidney stone. ? A nerve condition that affects your bladder control (neurogenic bladder). ? Not getting enough to drink, or not urinating often. ??? You have certain medical conditions, such as: ? Diabetes. ? A weak disease-fighting system (immunesystem). ? Sickle cell disease. ? Gout. ? Spinal cord injury. What are the signs or symptoms? Symptoms of this condition include: ??? Needing to urinate right away (urgency). ??? Frequent urination. This may include small amounts of urine each time you urinate. ??? Pain or burning with urination. ??? Blood in the urine. ??? Urine that smells bad or unusual. ??? Trouble urinating. ??? Cloudy urine. ??? Vaginal discharge, if you are female. ??? Pain in the abdomen or the lower back. You may also have: ??? Vomiting or a decreased appetite. ??? Confusion. ??? Irritability or tiredness. ??? A fever or chills. ??? Diarrhea. The first symptom in older adults may be confusion. In some cases, they may not have any symptoms until the infection has worsened. How is this diagnosed? This condition is diagnosed based on your medical history and a physical exam. You may also have other tests, including: ??? Urine tests. ??? Blood tests. ??? Tests for STIs (sexually transmitted infections). If you have had more than one UTI, a cystoscopy or imaging studies may be done to determine the cause of the infections. How is this treated? Treatment for this condition includes: ??? Antibiotic medicine. ??? Rzqz-api-nbykioy medicines to treat discomfort. ??? Drinking enough water to stay hydrated. If you have frequent infections or have other conditions such as a kidney stone, you may need to see a health care provider who specializes in the urinary tract (urologist). In rare cases, urinary tract infections can cause sepsis. Sepsis is a life-threatening condition that occurs when the body responds to an infection. Sepsis is treated in the hospital with IV antibiotics, fluids, and other medicines. Follow these instructions at home: Medicines ??? Take qcoc-wyp-iptrpcn and prescription medicines only as told by your health care provider. ??? If you were prescribed an antibiotic medicine, take it as told by your health care provider. Do not stop using the antibiotic even if you start to feel better. General instructions ??? Make sure you: ? Empty your bladder often and completely. Do not hold urine for long periods of time. ? Empty your bladder after sex. ? Wipe from front to back after urinating or having a bowel movement if you are female. Use each tissue only one time when you wipe. ??? Drink enough fluid to keep your urine pale yellow. ??? Keep all follow-up visits. This is important. Contact a health care provider if: ??? Your symptoms do not get better after 1?2 days. ??? Your symptoms go away and then return. Get help right away if: ??? You have severe pain in your back or your lower abdomen. ??? You have a fever or chills. ??? You have nausea or vomiting. Summary ??? A urinary tract infection (UTI) is an infection of any part of the urinary tract, which includes the kidneys, ureters, bladder, and urethra. ??? Most urinary tract infections are caused by bacteria in your genital area. ??? Treatment for this condition often includes antibiotic medicines. ??? If you were prescribed an antibiotic medicine, take it as told by your health care provider. Do not stop using the antibiotic even if you start to feel better. ??? Keep all follow-up visits. This is important. This information is not intended to replace advice given to you by your health care provider. Make sure you di (more content not included)... [facility] 10-04-2023 Hospital Discharge instructions Patient Education 10/04/2023 09:26:25 Overactive Bladder, [...] your health care provider. General instructions Take qoid-ysq-yenmygs and prescription medicines only as told by [...] provider. Document Revised: 12/29/2020 Document Reviewed: 12/29/2020 [employer] Patient Education 2022 [employer]. Follow Up Care 09/28/2022 12:24:07 With:ORACIO LOTT, ANJELICA Nino, URL Address: [address] [place] [address] When: Unknown [facility]22 Evaluation note Encounter Date Diagnosis Assessment Notes Nov, Monilial vaginitis (ICD-10 - B37.31) [facility] Other 08-21-2023 Evaluation note* Encounter Date Diagnosis Assessment Notes Treatment Notes Treatment Clinical Notes Nov, Dysuria (ICD-10 - R30.0) [facility] Other 08-18-2023 Evaluation note* Encounter Date Diagnosis [...] be Dentist Discussed [place], trial of Neurontin? [facility] Other 08-10-2023 Evaluation note* Encounter Date Diagnosis [...] antibiotic. Patient verbalized understanding of treatment plan. [facility] Other 08-10-2023 Evaluation note* Encounter Date Diagnosis [...] to prevent GI side effects, yeast infection. [facility] Other 06-06-2023 Hospital Discharge instructions Patient Education [...] your health care provider. General instructions Take gugn-aha-wvrwqsd and prescription medicines only as told by [...] provider. Document Revised: 12/29/2020 Document Reviewed: 12/29/2020 [employer] Patient Education 2022 [employer]. 08/12/2022 14:20:46 Urinary Tract Infection, Adult Urinary [...] Treatment for this condition includes: Antibiotic medicine. Yulz-dpz-tnawend medicines to treat discomfort. Drinking enough water [...] Follow these instructions at home: Medicines Take vywi-bma-gxvkszr and prescription medicines only as told by [...] provider. Document Revised: 11/21/2020 Document Reviewed: 11/21/2020 [employer] Patient Education 2022 [employer] Follow Up Care 08/12/2021 11:15:37 With:ANJELICA NARAYANAN PA-C, URL Address: When:1 year With:JB SANTOS, Jean R, URL Address: [facility] [address], [place] [address]- When: Unknown [facility] 02-24-2023 Evaluation note* Encounter Date Diagnosis Assessment [...] mammogram for breast cancer (ICD-10 - Z12.31) [facility] Other 02-16-2023 Evaluation note* Encounter Date Diagnosis Assessment Notes Treatment Notes Treatment Clinical Notes May, Dysuria (ICD-10 - R30.0) [place] [facility] Other 02-06-2023 Evaluation note* Encounter Date Diagnosis [...] no improvement in 2 to 3 days [facility] Other Evaluation + Plan note Future Appointments Appointment Date:10/04/2023 09:00:00 AM Scheduled Provider:ANJELICA NARAYANAN PA-C Location:[facility] Appointment Type:URO Office Visit [facility] evaluation + Plan note Future Appointments Appointment Date:10/05/2024 08:15:00 AM Scheduled Provider:Jean ANGELES MD Location:[facility] Appointment Type:URO Office Visit [facility] evaluation + Plan note Future Appointments Appointment Date:10/11/2025 08:15:00 AM Scheduled Provider:Jean ANGELES MD Location:[facility] Appointment Type:URO Office Visit [facility]No [facility] Other evaluation note* Diagnosis Onset Date Resolution Status ASHLEY (generalized anxiety disorder) acute IFG (impaired fasting glucose) acute Osteopenia acute Medicare annual wellness visit, initial noneactive Screening mammogram for breast cancer noneactive [facility] Work Phone: evaluation note* Diagnosis Onset Date Resolution Status Acute sinusitis acute IFG (impaired fasting glucose) acute Monilial vaginitis acute [facility] Work Phone: evaluation note* Diagnosis Onset Date Resolution Status Plantar fasciitis of left foot acute [facility] Work Phone: evaluation note* Diagnosis Onset Date Resolution Status Plantar fasciitis of left foot acute ASHLEY (generalized anxiety disorder) acute IFG (impaired fasting glucose) acute Osteopenia acute [facility] Work Phone: evaluation note* Diagnosis Onset Date Resolution Status Plantar fasciitis of left foot acute Eczema, dyshidrotic acute Folliculitis of nose acute ASHLEY (generalized anxiety disorder) acute IFG (impaired fasting glucose) acute Osteopenia acute [facility] Work Phone: Evaluation noteNo assessment information available [facility] Work Phone: evaluation note* Diagnosis Onset Date Resolution Status Admit Date ASHLEY (generalized anxiety disorder) acute August 10, 2024 8:53am IFG (impaired fasting glucose) acute August 10, 2024 8:53am Osteopenia acute August 10 8:53am Medicare annual wellness visit, initial noneactive August 10, 2024 8:53am Screening mammogram for breast cancer noneactive August 10, 2024 8:53am [facility] Work Phone: Evaluation note* Diagnosis Vaginal discharge Leukorrhea, not specified as infective Yeast infection BV (bacterial vaginosis) Unspecified vaginitis and vulvovaginitis Urinary tract infection without hematuria, site unspecified documented in this encounter [facility] - Reported* Type Description Date Medical History anxiety Medical History Bladder Spasms [facility] Other History general Narrative - Reported* Type Description Date Medical History anxiety Medical History Bladder Spasms Surgical History cholecystectomy 1999 Surgical History cataract bilateral 2006 Surgical History ORIF right tib/fib Surgical History cysto with urethral dilation 12 10 Surgical History D&C Surgical History [facility] Danger Other History general Narrative - Reported* Type Description [...] 12 10 Surgical History D&C Surgical History [facility] Hospitalization History see surgical history [facility] Other Hospital course Narrative No data available for this section [facility] progress note No data available for this section [facility] Assessments Diagnosis Xerosis cutis - Primary Other specified disease of sebaceous glands SK (seborrheic keratosis) Other seborrheic keratosis Summary Purpose Family History No Family History Records Found Relationship Condition Age at Onset Recorded Date/T sonia brother Diabetes mellitus Unknown family member Unknown Not Specified Osteoporosis Unknown Unknown Hypertension Unknown Diabetes mellitus Unknown Relationship Condition Age at Onset Recorded Date/T sonia brother Diabetes mellitus Unknown family member Unknown mother Osteoporosis Unknown Unknown Hypertension Unknown Diabetes mellitus Unknown Advance Directives No Advanced Directives Records Found Advance Directive Response Recorded Date/ Time Advance Directives No August 08 9:23am Advance Directive Response Recorded Date/ Time Advance Directives No August 08 8:23am Chief Complaint and Reason for Visit [...] January 10:00am UA, frequency/pressure May 14 8:54am Chief Complaint Admit Date Wellness August 10, 2024 8:5 3am Reason for Visit Admit Date ASHLEY (generalized anxiety disorder) August 10, 2024 8:53am IFG (impaired fasting glucose) July 8:53am Osteopenia August 10, 2024 8:5 3am Medicare annual wellness visit, initial August 10, 2024 8:53am Screening mammogram for breast cancer [facility] 2024 8:53am Additional Source Comments INFORMATION SOURCE (unrecogn ized section and content) DATE CREATED AUTHOR 10/18/2017 [facility] DATE CREATED AUTHOR AUTHOR'S ORGANIZ ATION [facility] DATE CREATED AUTHOR AUTHOR'S ORGANIZ ATION 01/29/2019 [facility] DATE CREATED AUTHOR AUTHOR'S ORGANIZ ATION 06/26/2022 [facility] DATE CREATED AUTHOR AUTHOR'S ORGANIZ ATION 10/08/2024 [facility] DATE CREATED AUTHOR AUTHOR'S ORGANIZ ATION 10/25/2024 [facility] EPIC REASON FOR VISIT (unrecogniz ed section and content) Reason Comments green discharge Patient Care team informatio n (unrecognized section and content) Team Status: Active Member Role Status Dates Ken London , DO Primary Care Provider Active [...] Status: Inactive Member Role Status Dates Ken Lnodon DO Primary Care Provide r, Attending Provider [...] May 14, 2024 End: May 14, 2024 Team Status: Inactive Member Role Status Dates Ken London DO Primary Care Provide r, Attending Provider Active Start: August 10, 2024 End: August 10, 2024 Medical Case Manager Relationship Specialty Start Date End Date Ken London DO [address] [place] [id number] PCP - General Internal Medicine 12/29/22 Medical Case Manager Relationship Specialty Start Date End Date Ken LondonDO [address] [place] [phone] PCP - General Internal Medicine 12/29/22 Medical Case Manager Relationship Specialty Start Date End Date Ken London [address] [place] [id number] PCP - General Internal Medicine 12/29/22 Goals (unrecognized section and content) Goals may [...] BE BASED ON THE PRIMARY CLINICAL RECORDS. [employer] provides no warranty or guarantee of the accuracy or completeness of information in this document.
== END 2025-02-11 10:02 | disposition home or self-care (01) ==
LOC: RAD 10:04
PROVIDERS: PCP Internal Medicine; Visit Provider Internal Medicine
DX: M54.50 Low back pain, unspecified (principal); M25.551 Pain in right hip; M25.552 Pain in left hip; M85.88 Other specified disorders of bone density and structure, other site; M51.369 Other intervertebral disc degeneration, lumbar region without mention of lumbar back pain or lower extremity pain
CPT/HCPCS: 72114; 73523